=== PATIENT | female | born 1950 | race Caucasian/White ===

== ENCOUNTER → 2024-09-09 17:24 | Outpatient (BNV) | payer MEDICARE, SELFPAY | PROVIDERS: Emergency Provider Emergency Medicine; PCP Family Medicine; Visit Provider Radiology Diagnostic Radiology | DX: R06.02 Shortness of breath (principal) | CPT/HCPCS: 71045 ==

== ENCOUNTER 2024-11-16 12:37 | Outpatient (AMB) | payer MEDICARE, SELFPAY ==
[2024-11-16 13:03] VITALS: BP 92/56; PULSE 81; O2SAT 97; BMI 15.2
--- NOTE | 2024-11-16 13:03 | A.OFFVIS_ITS ---
Vital Signs 11/16/24 13:03 Height 5 ft 6 in Weight 94 lb BMI 15.2 BP 92/56 L Blood Pressure Location Lt brachial Position Sitting Pulse 81 Pulse Source Doppler Pulse Oximetry (%) 97 Oxygen Delivery Method Room Air Intake Visit Reasons: shortness of breath, cough Allergies banana Allergy (Verified 11/03/24 10:51) headaches chocolate Allergy (Verified 11/03/24 10:51) hives codeine Allergy (Verified 11/03/24 10:51) runny nose Influenza Virus Vaccines Allergy (Verified 11/03/24 10:51) guillain-barre latex Allergy (Verified 11/03/24 10:51) itching, rash sertraline [From Zoloft] Allergy (Verified 11/03/24 10:51) Dizziness soy Allergy (Verified 11/03/24 10:51) swelling/edema beef Allergy (Uncoded 11/03/24 10:51) headaches cucumber Allergy (Uncoded 11/03/24 10:51) rhinitis demerol Allergy (Uncoded 11/03/24 10:51) unknown pork Allergy (Uncoded 11/03/24 10:51) intolerant HPI HPI shortness of breath, cough: Details: 74-year-old lady with underlying COPD and BAL cultures growing MAC, symptomatic with worsening cough. Continues on baseline COPD regimen of Trelegy, duo nebs, and albuterol MDI. Patient has been taken TIW azithromycin, rifampin, and ethambutol and is able to tolerate this regimen without side effects. She did have a recent acute exacerbation requiring systemic glucocorticoids. She did complete her immunologic workup that shows significant allergic component to her symptoms. She has been approved for Dupixent, however she was not able to start it yet. 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 Osteoporosis Multinodular thyroid History of cervical cancer Nicotine dependence, cigarettes, uncomplicated History of right breast cancer COPD (chronic obstructive pulmonary disease) Surgical History (Updated 11/03/24 @ 10:51 by Rashmi Sommer) History of partial mastectomy of right breast History of bronchoscopy History of hysterectomy History of breast augmentation History of appendectomy Family History (System 11/03/24 @ 10:51 by Rashmi Sommer) Father Prostate CA Social History (System 11/03/24 @ 10:51 by Rashmi Sommer) Household Members: None Housing: House Patient Tobacco Use Status: Current everyday Tobacco user Cigarette Packs Per Day: 0.5 Cigarettes Per Day: 5 Years Smoked: 35 e-Cigarette/Vaping Use: Never Used service: No Current occupational status: employed Cognitive needs: No Hearing needs: No Vision needs: Yes Review of Systems Const Denies daytime sleepiness, Denies excessive sweating, Denies fatigue, Denies fever(s), Denies lethargy, Denies malaise, Denies night sweats, Denies snoring and Denies weight loss Eyes Denies blurry vision and Denies itchy eyes ENT Denies nasal congestion, Denies post nasal drip, Denies sinus pain, Denies sinus pressure and Denies other ( Thrush) Card Denies chest pain, Denies pedal edema, Denies dyspnea, Denies orthopnea and Denies paroxysmal nocturnal dyspnea Resp Reports cough, Denies hemoptysis, Reports excessive phlegm production, Denies dyspnea, Denies snoring and Denies wheezing GI Denies abdominal pain and Denies heartburn Musc Denies myalgias, Denies arthralgias and Denies joint swelling Skin/Breast Denies rash Neuro Denies memory loss and Denies seizure-like activity Psych Denies abnormal sleep pattern, Denies anxiety and Denies memory loss Endo Denies excessive sweating, Denies fatigue and Denies heat intolerance Estuardo/Lymph Denies easy bruising Aller/Immun Denies itchy eyes, Denies seasonal rhinorrhea and Denies wheezing Physical Exam Vital Signs: Last Vital Signs Pulse 81 11/16/24 13:03 BP 92/56 L 11/16/24 13:03 Pulse Ox 97 11/16/24 13:03 Oxygen Delivery Method Room Air 11/16/24 13:03 BMI result Body Mass Index 15.2 Const General: no acute distress and alert Nutritional Appearance: not obese Orientation/consciousness: Other orientation findings ( oriented) HEENT Head: Yes atraumatic Eyes General: appearance normal, both eyes and all related structures Sclerae: sclerae normal EOM: EOMs intact bilaterally Neck Neck: Yes supple Lymphatic: no lymphadenopathy noted Resp Effort & Inspection: normal respiratory effort and no use of accessory muscles Auscultation: clear to auscultation bilaterally Cardio Rate: regular rate Rhythm: regular rhythm Heart sounds: no gallops, no murmurs and no rubs Skin General skin exam: other ( warm) Extrem General: No clubbing, No cyanosis and No edema Assessment & Plan Assessment & Plan (1) Asthma-COPD overlap syndrome: Code(s): J44.89 - Other specified chronic obstructive pulmonary disease Category: Medical Plan: Suboptimal control on trilogy and albuterol MDI/duo nebs. Approved, however not started on Dupixent yet. (2) Mycobacterium avium complex: Code(s): A31.0 - Pulmonary mycobacterial infection Category: Medical Plan: Tolerating 3 drug regimen. Continue ethambutol/azithromycin/rifampin TIW. (3) Nicotine dependence, cigarettes, uncomplicated: Code(s): F17.210 - Nicotine dependence, cigarettes, uncomplicated Category: Medical Plan: Will obtain lung cancer screening CT chest. Orders: Orders CT lung screening 01/16/25 F17.210 - Nicotine dependence, cigarettes, uncomplicated Medications: Refilled dupilumab (Dupixent) Initial dose 600 mg, then 300 mg every 2 weeks subcutaneously 300 mg (2 mL) subcut Q2W 4 mL 12RF Coding Level of Care Code Est Pt Level 4 (31732) Complex EM visit Add On G2211 Diagnoses Asthma-COPD overlap syndrome J44.89 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 Nicotine dependence, cigarettes, uncomplicated F17.210
--- OUTSIDE RECORDS SUMMARY | 2024-11-16 15:11 | XMS_ITS | Clinical Summary ---
Author Organization [facility] ity Address [address] [place] [address] Care Team Providers Care Materials Scheduler Name Role Phone Elyssa García DO Primary Care Provider [phone] Surgical History Surgery Date Site/Laterality Comments APPENDECTOMY PROCEDURE: HISTORICAL APPENDECTOMY HYSTERECTOMY PROCEDURE: HISTORICAL TOTAL HYSTERECTOMY WITH BSO BREAST LUMPECTOMY 2008 Right PROCEDURE: HISTORICAL BREAST LUMPECTOMY; COMMENT: DCIS, + XRT OTHER SURGICAL HISTORY 2010 Bilateral PROCEDURE: HISTORY OTHER; COMMENT: Bilateral breast augmentation w/ silicone implants Medical History Medical History Date Comments Allergic rhinitis 04/14/2018 DX:Allergic rh initis Anxiety DX:Anxiety BMI less than 19,adult 04/14/2018 DX:BMI le ss than 19,adult; COMMENT: BMI 14.13 on 04/08/2018, BMI 15.17 07/23/16 DJD (degenerative joint dise ase) of knee 04/14/2018 DX:DJD (degenerative joint d isease) of knee Heart palpitations 04/14/2018 DX:Heart palp itations Herpes, genital 04/14/2018 DX:Herpes, genit al History of breast cancer DX:Hist ory of breast cancer; COMMENT: DCIS 2008, R mastectomy and XRT 2009 Multiple food allergies 04/14/2018 DX:Multi ple food allergies; COMMENT: Has epipen Multiple thyroid nodules 04/14/2018 DX:Mult iple thyroid nodules Tobacco use 04/14/2018 DX:Tobacco use Vitamin D deficiency 04/14/2018 DX:Vitamin D deficiency Dyslipidemia 07/10/2018 DX:Dyslipidemia Brain aneurysm 07/28/2018 DX:Brain aneurys m History of Guillain-Rochester sy ndrome due to influenza immunization 11/13/2018 DX:History of Guillain-B arre syndrome due to influenza immunization; COMMENT: 2016 Covid-19 12/21/2020 DX:COVID-19; COM MENT: 10/30 Gallstones DX:Gallstones COPD (chronic obstructive pu lmonary disease) (CMS/HCC) DX:COPD (chronic obstructive pulmonary disease) (HCC) Family History Medical History Relation Name Comments Prostate cancer Father mets to the bone Dementia Mother Other: cyst of brain Son Lung cancer Neg Hx Relation Name Status Comments Brother Father Mother Son Alive Social History Tobacco Use Types Packs/Day Years Used Date Smoking Tobacco: Every Day Cigarettes 0.5 52.2 Started: 09/08/1972 Smokeless Tobacco: Never Alcohol Use Standard Drinks/Week Comments Not Currently 0 (1 standard drink = 0.6 oz pur e alcohol) Comments Unknown Sex and Gender Information Value Date Recorded Sex Assigned at Not on file Legal Sex Female 5:34 AM EST Gender Identity Not on file Sexual Orientation Not on file Obstetrics History Last Filed Vital Signs Vital Sign Reading Time Taken Comments Blood Pressure 113/70 12/11/2023 1:54 PM EDT Sitting R Arm Pulse 76 12/11/2023 1:54 PM EDT Temperature - - Respiratory Rate - - Oxygen Saturation - - Inhaled Oxygen Concentration - - Weight 41.4 kg (91 lb 3.2 oz) 1:54 PM EDT Height 167.6 cm (5' 6 ) 12/11/2023 1:54 PM EDT Body Mass Index 14.72 12/11/2023 1:54 PM EDT Plan of Treatment Health Maintenance Due Date Last Done Comments DTaP,Tdap,and Td Vaccines (1 - Tdap) 1971 Pneumococcal Vaccine: 50+ Years (1 of 2 - PCV) 1971 Zoster Vaccines (1 of 2) 2002 RSV Immunization Patients 60+ Years Old (1 - Risk 60-74 years 1-dose series) 2012 Cholesterol Screening (Lipid Panel) 08/17/2022 Colorectal Cancer Screening: Colonoscopy 08/17/2022 Depression Screening 08/17/2022 Falls Risk Assessment 08/17/2022 Hepatitis C Screening 08/17/2022 Social Influencers of Health Screening 08/17/2022 COVID-19 Vaccine ( season) 2024 01/29/2022, 06/28/2021, 06/09/2021, Additional history exists Influenza Vaccine (#1) 2024 Lung Cancer Screening (Low Dose CT) 06/27/2024 06/27/2023, 05/20/2022 Breast Cancer Screening 08/20/2025 08/20/2023 Osteoporosis Screening (Bone Density Screening) 08/20/2033 08/20/2023 HIB Vaccines Aged Out No longer eligi ble based on patient's age to complete this topic HPV Vaccines Aged Out No longer eligi ble based on patient's age to complete this topic Hepatitis A Vaccines Aged Out No long er eligible based on patient's age to complete this topic Hepatitis B Vaccines Aged Out No long er eligible based on patient's age to complete this topic IPV Vaccines Aged Out No longer eligi ble based on patient's age to complete this topic MMR Vaccines Aged Out No longer eligi ble based on patient's age to complete this topic Meningococcal ACWY Vaccine Aged Out N o longer eligible based on patient's age to complete this topic Meningococcal B Vacine Aged Out No lo nger eligible based on patient's age to complete this topic RSV Immunization Patients Under 20 months Aged Out No longer eligible based on patient's age to complete this topic Varicella Vaccines Aged Out No longer eligible based on patient's age to complete this topic Procedures Procedure Name Priority Date/Time Associated Diagnosis Comments SCREENING MAMMOGRAPHY BI 2-VIEW BREAST INC CAD Routine 08/20/2023 3:59 PM EST Encounter for screening mammogram for malignant neoplasm of breast DXA BONE DENSITY STUDY 1+ SITS AXIAL SKEL Routine 08/20/2023 3:47 PM EST Encounter for screening for osteoporosis CT LUNG SCREENING LOW DOSE Routine 06/27/2023 6:12 AM EDT Personal history of nicotine dependence from Last 3 Months or Most Recently Relevant to Health Maintenance Results * SCREENING MAMMOGRAPHY BI 2-VIEW BREAST INC CAD (08/20/2023 3:59 PM EST) Anatomical Region Laterality Modality Radiographic Melani ging 05/21/2023 3:13 PM EDT Narrative 08/21/2023 10:15 AM EST This is a summary report. The complete report is available in the patient's medical record. If you cannot access the medical record, please contact the sending organization for a detailed fax or copy. Full field digital screening tomosynthesis mammography, reviewed with CAD and compared to previous. ??Both standard and implant displaced views were obtained bilaterally. ??Bilateral subpectoral silicone implants remain appropriately positioned and configured. ??The breasts are composed of fatty and fibroglandular tissue. ??No suspicious mass, architectural distortion or suspicious calcifications are identified. IMPRESSION: : No mammographic evidence of malignancy. BIRADS 1-Negative; N. Procedure Note Abhinav Tran MD - 10/14/2023 This is a summary report. The complete report is available in thepatient's medical record. If you cannot access the medical record, pleasecontact the sending organization for a detailed fax or copy. Full field digital screening tomosynthesis mammography, reviewed with CADand compared to previous. Both standard and implant displaced views wereobtained bilaterally. Bilateral subpectoral silicone implants remainappropriately positioned and configured. The breasts are composed offatty and fibroglandular tissue. No suspicious mass, architecturaldistortion or suspicious calcifications are identified. IMPRESSION: : No mammographic evidence of malignancy. BIRADS 1-Negative; N. Elyssa García DO IMG XR PROCEDURES Final Result * DXA BONE DENSITY STUDY 1+ SITS AXIAL SKEL (08/20/2023 3:47 PM EST) Anatomical Region Laterality Modality Bone Densitometr y 05/21/2023 3:13 PM EDT Narrative 08/20/2023 3:52 PM EST BONE DENSITY ? Lumbar Spine T-score is -3.0 ?? (SD relative to 20-29 y/o adult) Z-score is -0.8 ??(SD relative to age matched peers) This is consistent with osteoporosis by criteria defined by the WHO. Left Hip T-score is -3.5 Z-score is -1.7 This is consistent with osteoporosis by criteria defined by the WHO. Impression: Based on the World Health Organization criteria, Carole Sandoval should be classified as having osteoporosis. The [facility] Department of Internal Medicine recommends using National Osteoporosis Foundation (NOF) guidelines in treatment decisions related to osteoporosis. NOF guidelines suggest considering treatment for postmenopausal women and men aged 50 or older presenting with the following: History of hip or vertebral fracture. T-score less than or equal to -2.5 (DXA) at the femoral neck, total hip, or spine, after appropriate evaluation to exclude secondary causes. Low bone mass (T-score between -1.0 and -2.5 at the femoral neck or spine) AND a 10-year probability of a hip fracture greater than or equal to 3% OR a 10-year probability of a major osteoporosis-related fracture greater than or equal to 20% based on the [place]-adapted WHO algorithm Please note that all treatment decisions require clinical judgment and consideration of individual patient factors, including patient preferences, co-morbidities, previous drug use, risk factors not captured in the FRAX model (e.g., frailty, falls, vitamin D deficiency, increased bone turnover, interval significant decline in bone density) and possible under- or over-estimation of fracture risk by FRAX. Procedure Note Abhinav Tran MD - 10/14/2023 BONE DENSITY Lumbar Spine T-score is -3.0 (SD relative to 20-29 y/o adult) Z-score is -0.8 (SD relative to age matched peers) This is consistent with osteoporosis by criteria defined by the WHO. Left Hip T-score is -3.5 Z-score is -1.7 This is consistent with osteoporosis by criteria defined by the WHO. Impression: Based on the World Health Organization criteria, Carole Sandoval should beclassified as having osteoporosis. The [facility] Department of Internal Medicine recommendsusing National Osteoporosis Foundation (NOF) guidelines in treatmentdecisions related to osteoporosis. NOF guidelines suggest consideringtreatment for postmenopausal women and men aged 50 or older presentingwith the following: History of hip or vertebral fracture. T-score less than or equal to -2.5 (DXA) at the femoral neck, total hip,or spine, after appropriate evaluation to exclude secondary causes. Low bone mass (T-score between -1.0 and -2.5 at the femoral neck or spine)AND a 10-year probability of a hip fracture greater than or equal to 3% ORa 10-year probability of a major osteoporosis-related fracture greaterthan or equal to 20% based on the [place]-adapted WHO algorithm Please note that all treatment decisions require clinical judgment andconsideration of individual patient factors, including patientpreferences, co-morbidities, previous drug use, risk factors not capturedin the FRAX model (e.g., frailty, falls, vitamin D deficiency, increasedbone turnover, interval significant decline in bone density) and possibleunder- or over-estimation of fracture risk by FRAX. Elyssa García DO IMG DXA PROCEDURES Final Result * CT LUNG SCREENING LOW DOSE (06/27/2023 6:12 AM EDT) Anatomical Region Laterality Modality Computed Tomogra phy 06/25/2023 11:1 0 AM EDT Narrative 06/27/2023 6:12 AM EDT [facility] Diagnostic Imaging Department [address] [place] [address] Patient: ??CAROLE SANDOVAL ?/Age/Sex: 1950 - 72 - F Unit#: ??[id number] ? Location/Status: ??SPDICATLS/REG CLI ? Mnemonic/Ordering Site: ??[facility] Ordering Physician: ??JAREK PERKINS MD CT Lung Screening Low Dose - 06/25/23 - 1125 Report Status:Signed Indication: Greater than 20 total pack-year smoking history, asymptomatic current smoker Technique: Low-dose CT scan of the chest obtained as a lung cancer screening study. Multiplanar reformatted images were obtained. ??Dose reduction technique: ASIR (Adaptive statistical iterative reconstruction) and/or AEC (automated exposure control) COMPARISON: 2021. FINDINGS: Lack of intravenous contrast limits evaluation of the antonio, vascular structures and visualized abdominal viscera. Lungs/airways: Secretions are seen in the trachea and right mainstem bronchus with bronchial wall thickening. ??Emphysematous changes. ??Calcified granuloma New spiculated 3.4 x 1.2 x 2.7 cm mass left upper lobe (series 3, image 70; series 601, image 67) Other scattered sub-5 mm pulmonary nodules are similar to prior. Base of the neck, mediastinum, heart, chest wall, vessels: No enlarged mediastinal lymphadenopathy. ??Hilar lymphadenopathy cannot be assessed due to lack of IV contrast. ??Thoracic aortic and coronary artery calcifications. ??Trace pericardial effusion/thickening. ??Bilateral breast implants. Upper abdomen: ??This study was performed without contrast and with lower than standard dose. These factors reduce the sensitivity for detection of small lesions in the upper abdomen. ??11 mm low-attenuation lesion in the left kidney, similar to prior. Bones/soft tissues: Degenerative changes Impression: New spiculated 3.4 x 1.2 x 2.7 cm suspicious mass in the left upper lobe Lung RADS 4B: Suspicious - PET/CT and/or tissue sampling depending on the probability of malignancy and comorbidities. PET/CT be used when there is a > or = 8 mm solid component. Dictating Physician: ??ELI DOWLING MD Electronically Signed by: ??ELI DOWLING MD Dic Date/Time: ??06/27/23600 Sign date/Time: ??06/27/23611 Procedure Note Eli Dowling MD - 10/14/2023 [facility] Diagnostic Imaging Department [address] [place] [address] Patient: CAROLE SANDOVAL /Age/Sex: 1950 - 72 - F Unit#: [id number] Location/Status: SPDICATLS/REG CLI Mnemonic[facility]ing [facility] [place] Ordering Physician: JAREK PERKINS MD CT Lung Screening Low Dose - 06/25/23 - 1125 Report Status:Signed Indication: Greater than 20 total pack-year smoking history,asymptomatic current smoker Technique: Low-dose CT scan of the chest obtained as a lung cancerscreening study. Multiplanar reformatted images were obtained. Dose reductiontechnique: ASIR (Adaptive statistical iterative reconstruction) and/or AEC(automated exposure control) COMPARISON: 2021. FINDINGS: Lack of intravenous contrast limits evaluation of the antonio,vascular structures and visualized abdominal viscera. Lungs/airways: Secretions are seen in the trachea and right mainstembronchus with bronchial wall thickening. Emphysematous changes. Calcifiedgranuloma New spiculated 3.4 x 1.2 x 2.7 cm mass left upper lobe (series 3, image70; series 601, image 67) Other scattered sub-5 mm pulmonary nodules are similar to prior. Base of the neck, mediastinum, heart, chest wall, vessels: No enlarged mediastinal lymphadenopathy. Hilar lymphadenopathy cannot be assessed dueto lack of IV contrast. Thoracic aortic and coronary artery calcifications.Trace pericardial effusion/thickening. Bilateral breast implants. Upper abdomen: This study was performed without contrast and with lowerthan standard dose. These factors reduce the sensitivity for detection ofsmall lesions in the upper abdomen. 11 mm low-attenuation lesion in the leftkidney, similar to prior. Bones/soft tissues: Degenerative changes Impression: New spiculated 3.4 x 1.2 x 2.7 cm suspicious mass in the left upper lobe Lung RADS 4B: Suspicious - PET/CT and/or tissue sampling depending onthe probability of malignancy and comorbidities. PET/CT be used when there gianluca > or = 8 mm solid component. Dictating Physician: ELI DOWLING MD Electronically Signed by: ELI DOWLING MD Dic Date/Time: 06/27/23600 Sign date/Time: 06/27/23611 us Jarek Perkins MD IMG CT PROCEDURES Final Result from Last 3 Months or Most Recently Relevant to Health Maintenance Advance Directives Documents on File Type Date Recorded Patient Staffing Associate Expl anation Health Care Decision (hx) 07/15/2023 AD SANTAMARIA DIRECTIVE Health Care Decision (hx) 07/15/2023 AD SANTAMARIA DIRECTIVE Health Care Decision (hx) 07/15/2023 AD SANTAMARIA DIRECTIVE Health Care Decision (hx) 07/15/2023 AD SANTAMARIA DIRECTIVE Health Care Decision (hx) 07/15/2023 AD SANTAMARIA DIRECTIVE Care Teams Materials Scheduler Relationship Specialty Start Date End Date Elyssa García DO PCP - General Internal Medicine 09/06/21
== END 2024-11-16 13:30 | disposition home or self-care (01) ==
LOC: HO.HPS 12:38
PROVIDERS: PCP Family Medicine; Visit Provider Internal Medicine Pulmonary Disease
DX: J44.89 Other specified chronic obstructive pulmonary disease (principal); A31.0 Pulmonary mycobacterial infection; F17.210 Nicotine dependence, cigarettes, uncomplicated
CPT/HCPCS: 99214; G2211

== ENCOUNTER → 2024-11-16 12:37 | Outpatient (BNVA) | payer MEDICARE, SELFPAY | PROVIDERS: PCP Family Medicine; Visit Provider Internal Medicine Pulmonary Disease | DX: J44.89 Other specified chronic obstructive pulmonary disease (principal); A31.0 Pulmonary mycobacterial infection; F17.210 Nicotine dependence, cigarettes, uncomplicated | CPT/HCPCS: 99212 ==

== ENCOUNTER → 2024-12-08 10:11 | Outpatient (BNVA) | payer MEDICARE, SELFPAY | PROVIDERS: PCP Family Medicine; Visit Provider Internal Medicine Pulmonary Disease ==

== ENCOUNTER 2024-12-10 09:38 | Outpatient (AMB) | payer MEDICARE, SELFPAY ==
[2024-12-10 09:54] VITALS: BP 106/68; PULSE 99; O2SAT 96
--- NOTE | 2024-12-10 09:54 | A.OFFVIS_ITS ---
Vital Signs 12/10/24 09:54 Height 5 ft 6 in BP 106/68 Blood Pressure Location Lt brachial Position Sitting Pulse 99 Pulse Source Pulse Oximeter Pulse Oximetry (%) 96 Oxygen Delivery Method Room Air Intake Visit Reasons: dupixent teaching Allergies banana Allergy (Verified 12/10/24 09:56) headaches chocolate Allergy (Verified 12/10/24 09:56) hives codeine Allergy (Verified 12/10/24 09:56) runny nose Influenza Virus Vaccines Allergy (Verified 12/10/24 09:56) guillain-barre latex Allergy (Verified 12/10/24 09:56) itching, rash sertraline [From Zoloft] Allergy (Verified 12/10/24 09:56) Dizziness soy Allergy (Verified 12/10/24 09:56) swelling/edema beef Allergy (Uncoded 12/10/24 09:56) headaches cucumber Allergy (Uncoded 12/10/24 09:56) rhinitis demerol Allergy (Uncoded 12/10/24 09:56) unknown pork Allergy (Uncoded 12/10/24 09:56) intolerant Medication List - Last Reconciled 12/10/24 by Mela Adamson, WELFARE SUPERVISOR albuterol sulfate 2.5 mg inhalation Q4-6H PRN albuterol sulfate 90 mcg/actuation 2 puffs inhalation QID 30 days azelastine 1 spray intranasal .daily x1 azithromycin 500 mg PO .Friday 30 days buspirone 15 mg (1.5 x 10 mg) PO BID 30 days cetirizine 10 mg PO DAILY PRN dupilumab (Dupixent) 300 mg (2 mL) subcut Q2W escitalopram oxalate 20 mg PO DAILY ethambutol 1 g (2.5 x 400 mg) PO 3XW atptllsqwjn-wofzvvvxo-boveoknf 200-62.5-25 mcg (Trelegy Ellipta) 1 inh inhalation DAILY ipratropium-albuterol 0.5 mg-3 mg(2.5 mg base)/3 mL 3 mL inhalation BID PRN lorazepam 0.5 mg PO DAILY PRN 30 days metoprolol tartrate 25 mg PO DAILY montelukast (Singulair) 10 mg PO DAILY prednisone 10 mg PO DIRECTED quetiapine (Seroquel) 25 mg PO BEDTIME rifampin 600 mg (2 x 300 mg) PO .Friday 30 days valacyclovir 500 mg PO DAILY HPI Comments Details: Carole is here for a Dupixent teach _ was educated on hand washing, injection preparation, administration, and disposal.? Carole was able to return demonstrate proper technique for hand washing, injection preparation, administration and disposal of needle and states she has no questions at this time. Medication Dupixent 300mg/2mL pre-filled pen (patient?s own meds) Loading dose of 600mg given by the patient in 2 SQ injections; injection #1 R thigh;? injection #2 L thigh? Lot# [id number] expires 05/08/2026. Patient aware her next injection is in 15 days. Nurse visit only.? 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 Osteoporosis Multinodular thyroid History of cervical cancer Nicotine dependence, cigarettes, uncomplicated History of right breast cancer COPD (chronic obstructive pulmonary disease) Surgical History (Updated 11/03/24 @ 10:51 by Rashmi Sommer) History of partial mastectomy of right breast History of bronchoscopy History of hysterectomy History of breast augmentation History of appendectomy Family History (System 11/03/24 @ 10:51 by Rashmi Sommer) Father Prostate CA Social History (System 11/03/24 @ 10:51 by Rashmi Sommer) Household Members: None Housing: House Patient Tobacco Use Status: Current everyday Tobacco user Cigarette Packs Per Day: 0.5 Cigarettes Per Day: 5 Years Smoked: 35 e-Cigarette/Vaping Use: Never Used service: No Current occupational status: employed Cognitive needs: No Hearing needs: No Vision needs: Yes Physical Exam Vital Signs: Last Vital Signs Pulse 99 12/10/24 09:54 BP 106/68 12/10/24 09:54 Pulse Ox 96 12/10/24 09:54 Oxygen Delivery Method Room Air 12/10/24 09:54 Assessment & Plan Assessment & Plan (1) Asthma-COPD overlap syndrome: Code(s): J44.89 - Other specified chronic obstructive pulmonary disease Category: Medical Plan Dupixent teaching Coding Level of Care Code Established Pt Est Pt Level 1 (93174) Patient Type Established Diagnoses Asthma-COPD overlap syndrome J44.89 Comment NURSE VISIT ONLY
--- OUTSIDE RECORDS SUMMARY | 2024-12-10 10:39 | XMS_ITS | Clinical Summary ---
Author Organization [facility] ity Address [address] [place] [address] Care Team Providers Care Lead Ios Developer Name Role Phone Elyssa García DO Primary Care Provider [phone] Surgical History Surgery Date Site/Laterality Comments APPENDECTOMY [...] aneurysm 07/28/2018 DX:Brain aneurys m History of Guillain-[place] sy ndrome due to influenza immunization 11/13/2018 [...] Date Smoking Tobacco: Every Day Cigarettes 0.5 52.3 Started: 09/08/1972 Smokeless Tobacco: Never Alcohol Use [...] Vaccines (1 of 2) 2002 RSV Immunization Adult Patients (1 - Risk 60-74 years 1-dose series) 2012 Cholesterol Screening (Lipid Panel) 08/17/2022 Colorectal Cancer Screening: Colonoscopy 08/17/2022 Depression Screening 08/17/2022 Falls Risk Assessment 08/17/2022 Hepatitis C Screening 08/17/2022 Social Influencers of Health Screening 08/17/2022 COVID-19 Vaccine ( season) 2024 01/29/2022, 06/28/2021, 06/09/2021, Additional history exists Lung Cancer Screening (Low Dose CT) 06/27/2024 06/27/2023, 05/20/2022 Influenza Vaccine (Season Ended) 2025 Breast Cancer Screening 08/20/2025 08/20/2023 Osteoporosis Screening [...] should be classified as having osteoporosis. The [facility] Department of Internal Medicine recommends using [...] Sandoval should beclassified as having osteoporosis. The [facility] Department of Internal Medicine recommendsusing National [...] fracture risk by FRAX. Elyssa García DO [facility] DXA PROCEDURES Final Result * CT LUNG SCREENING LOW DOSE (06/27/2023 6:12 AM EDT) Anatomical Region Laterality Modality Computed Tomogra phy 06/25/2023 11:1 0 AM EDT Narrative 06/27/2023 6:12 AM EDT [facility] Diagnostic Imaging Department [address] [place] [address] Patient: ??CAROLE SANDOVAL ?/Age/Sex: 1950 - Unit#: ??[id number] ? Location/Status: ??SPDICATLS/REG CLI ? Mnemonic/Ordering Site: [...] Procedure Note Eli Dowling MD - 10/14/2023 [facility] Diagnostic Imaging Department [address] [place] [address] Patient: CAROLE SANDOVAL /Age/Sex: 1950 - 72 - F Unit#: [id number] Location/Status: SPDICATLS/REG CLI Mnemonic/Ordering Site: 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
== END 2024-12-10 09:51 | disposition home or self-care (01) ==
LOC: HO.HPS 09:38
PROVIDERS: PCP Family Medicine; Visit Provider Internal Medicine Pulmonary Disease
DX: J44.89 Other specified chronic obstructive pulmonary disease (principal)

== ENCOUNTER → 2024-12-10 09:38 | Outpatient (BNVA) | payer MEDICARE, SELFPAY | PROVIDERS: PCP Family Medicine; Visit Provider Internal Medicine Pulmonary Disease | DX: J44.89 Other specified chronic obstructive pulmonary disease (principal); Z71.89 Other specified counseling; Z79.899 Other long term (current) drug therapy | CPT/HCPCS: 99211 ==

== ENCOUNTER 2024-12-15 10:30 | Outpatient (AMB) | payer MEDICARE, SELFPAY ==
[2024-12-15 10:41] VITALS: BP 108/62; PULSE 82; O2SAT 95; BMI 33.8
--- NOTE | 2024-12-15 10:41 | MHC.OFFVIS ---
Vital Signs 12/15/24 10:41 Height 5 ft 6 in Weight 209 lb 7.026 oz BMI 33.8 BP 108/62 Blood Pressure Location Lt brachial Position Sitting Pulse 82 Pulse Source Doppler Pulse Oximetry (%) 95 Oxygen Delivery Method Room Air Intake Visit Reasons: Shortness of breath Allergies banana Allergy (Verified 12/15/24 10:46) headaches chocolate Allergy (Verified 12/15/24 10:46) hives codeine Allergy (Verified 12/15/24 10:46) runny nose Influenza Virus Vaccines Allergy (Verified 12/15/24 10:46) guillain-barre latex Allergy (Verified 12/15/24 10:46) itching, rash sertraline [From Zoloft] Allergy (Verified 12/15/24 10:46) Dizziness soy Allergy (Verified 12/15/24 10:46) swelling/edema beef Allergy (Uncoded 12/10/24 09:56) headaches cucumber Allergy (Uncoded 12/10/24 09:56) rhinitis demerol Allergy (Uncoded 12/10/24 09:56) unknown pork Allergy (Uncoded 12/10/24 09:56) intolerant HPI HPI Shortness of breath: Details: 74-year-old lady with underlying COPD and BAL cultures growing MAC, symptomatic with worsening cough. Continues on baseline COPD regimen of Trelegy, duo nebs, and albuterol MDI. Patient has been taken TIW azithromycin, rifampin, and ethambutol and is able to tolerate this regimen without side effects. She did have a recent acute exacerbation requiring systemic glucocorticoids. She did complete her immunologic workup that shows significant allergic component to her symptoms. She has been approved for [employer] and had her 1st injection approximately 1 week prior. Patient's symptoms been controlled on a prednisone taper, however her dyspnea and nonproductive cough recurred several days after finishing prednisone taper. 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 Osteoporosis Multinodular thyroid History of cervical cancer Nicotine dependence, cigarettes, uncomplicated History of right breast cancer COPD (chronic obstructive pulmonary disease) Surgical History (Updated 11/03/24 @ 10:51 by Rashmi Sommer) History of partial mastectomy of right breast History of bronchoscopy History of hysterectomy History of breast augmentation History of appendectomy Family History (System 11/03/24 @ 10:51 by Rashmi Sommer) Father Prostate CA Social History (System 11/03/24 @ 10:51 by Rashmi Sommer) Household Members: None Housing: House Patient Tobacco Use Status: Current everyday Tobacco user Cigarette Packs Per Day: 0.5 Cigarettes Per Day: 5 Years Smoked: 35 e-Cigarette/Vaping Use: Never Used service: No Current occupational status: employed Cognitive needs: No Hearing needs: No Vision needs: Yes Review of Systems Const Denies daytime sleepiness, Denies excessive sweating, Denies fatigue, Denies fever(s), Denies lethargy, Denies malaise, Denies night sweats, Denies snoring and Denies weight loss Eyes Denies blurry vision and Denies itchy eyes ENT Denies nasal congestion, Denies post nasal drip, Denies sinus pain, Denies sinus pressure and Denies other ( Thrush) Card Denies chest pain, Denies pedal edema, Denies dyspnea, Reports dyspnea on exertion, Denies orthopnea and Denies paroxysmal nocturnal dyspnea Resp Reports cough, Denies hemoptysis, Denies excessive phlegm production, Denies dyspnea, Reports dyspnea on exertion, Denies snoring and Denies wheezing GI Denies abdominal pain and Denies heartburn Musc Denies myalgias, Denies arthralgias and Denies joint swelling Skin/Breast Denies rash Neuro Denies memory loss and Denies seizure-like activity Psych Denies abnormal sleep pattern, Denies anxiety and Denies memory loss Endo Denies excessive sweating, Denies fatigue and Denies heat intolerance Estuardo/Lymph Denies easy bruising Aller/Immun Denies itchy eyes, Denies seasonal rhinorrhea and Denies wheezing Physical Exam Vital Signs: Last Vital Signs Pulse 82 12/15/24 10:41 BP 108/62 12/15/24 10:41 Pulse Ox 95 12/15/24 10:41 Oxygen Delivery Method Room Air 12/15/24 10:41 BMI result Body Mass Index 33.8 Const General: no acute distress and alert Nutritional Appearance: thin Orientation/consciousness: Other orientation findings ( oriented) HEENT Head: Yes atraumatic Eyes General: appearance normal, both eyes and all related structures Sclerae: sclerae normal EOM: EOMs intact bilaterally Neck Neck: Yes supple Lymphatic: no lymphadenopathy noted Resp Effort & Inspection: normal respiratory effort and no use of accessory muscles Auscultation: clear to auscultation bilaterally Cardio Rate: regular rate Rhythm: regular rhythm Heart sounds: no gallops, no murmurs and no rubs Skin General skin exam: other ( warm) Extrem General: No clubbing, No cyanosis and No edema Assessment & Plan Assessment & Plan (1) Asthma-COPD overlap syndrome: Code(s): J44.89 - Other specified chronic obstructive pulmonary disease Category: Medical Plan: Expect to improve after starting Dupixent. Continue baseline regimen of Trelegy and albuterol MDI/duo nebs. Will bridge with low-dose prednisone. (2) Mycobacterium avium complex: Code(s): A31.0 - Pulmonary mycobacterial infection Category: Medical Plan: Tolerating triple therapy with ethambutol/rifampin/azithromycin. (3) Environmental allergies: Code(s): Z91.09 - Other allergy status, other than to drugs and biological substances Category: Medical Plan: Expect to improve on Dupixent. Medications: New prednisone Take 2 tabs daily for 3 weeks, then take 1 tab daily for 1 week 5 mg PO DIRECTED 50 tabs 0RF Coding Level of Care Code Est Pt Level 4 (37718) Complex EM visit Add On G2211 Diagnoses Asthma-COPD overlap syndrome J44.89 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 Environmental allergies Z91.09
--- OUTSIDE RECORDS SUMMARY | 2024-12-15 12:00 | XMS_ITS | Clinical Summary ---
Author Organization [facility] ity Address [address] [place] [address] Care Team Providers Care Time Clock Mechanic Name Role Phone Elyssa García DO Primary Care Provider [phone] Surgical History Surgery Date Site/Laterality Comments APPENDECTOMY [...] aneurysm 07/28/2018 DX:Brain aneurys m History of Guillain-[place] sy ndrome due to influenza immunization 11/13/2018 [...] age to complete this topic Meningococcal B Vaccine Aged Out No l onger eligible based on patient's age to complete [...] should be classified as having osteoporosis. The [facility] Department of Internal Medicine recommends using [...] [place] should beclassified as having osteoporosis. The [facility] Department of Internal Medicine recommendsusing National [...] fracture risk by FRAX. Elyssa García DO [facility] DXA PROCEDURES Final Result * CT LUNG SCREENING LOW DOSE (06/27/2023 6:12 AM EDT) Anatomical Region Laterality Modality Computed Tomogra phy 06/25/2023 11:1 0 AM EDT Narrative 06/27/2023 6:12 AM EDT [facility] Diagnostic Imaging Department [address] [place] [address] Patient: ??CAROLE SANDOVAL ?/Age/Sex: 1950 - - Unit#: ??[id number] ? Location/Status: ??SPDICATLS/REG CLI ? 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
== END 2024-12-15 10:58 | disposition home or self-care (01) ==
LOC: HO.HPS 10:31
PROVIDERS: PCP Family Medicine; Visit Provider Internal Medicine Pulmonary Disease
DX: J44.89 Other specified chronic obstructive pulmonary disease (principal); A31.0 Pulmonary mycobacterial infection; Z91.09 Other allergy status, other than to drugs and biological substances
CPT/HCPCS: 99214; G2211

== ENCOUNTER → 2024-12-15 10:30 | Outpatient (BNVA) | payer MEDICARE, SELFPAY | PROVIDERS: PCP Family Medicine; Visit Provider Internal Medicine Pulmonary Disease | DX: J44.89 Other specified chronic obstructive pulmonary disease (principal); A31.0 Pulmonary mycobacterial infection; F17.210 Nicotine dependence, cigarettes, uncomplicated; Z91.09 Other allergy status, other than to drugs and biological substances | CPT/HCPCS: 99212 ==

== ENCOUNTER 2024-12-16 19:37 | Emergency (ER) | payer MEDICARE, SELFPAY ==
[2024-12-16 19:54] VITALS: BP 120/66; PULSE 88; RESP 16; TEMP 36.6; O2SAT 97; BMI 15.8
--- NOTE | 2024-12-16 19:55 | ED.SOB ---
HPI - SOB/Dyspnea General Chief Complaint: Dyspnea Stated Complaint: sob/hard time breathing-PCP wants a catscan done Related Data Home Medications ?Medication ?Instructions ?Recorded ?Confirmed albuterol sulfate 2.5 mg/3 mL 2.5 mg inhalation Q4-6H PRN 12/16/23 12/10/24 (0.083 %) solution for nebulization Wheezing azelastine 137 mcg (0.1 %) nasal 1 spray intranasal .daily x1 12/16/23 12/10/24 spray cetirizine 10 mg tablet 10 mg PO DAILY PRN Allergic 12/16/23 12/10/24 Reaction escitalopram oxalate 10 mg tablet 20 mg PO DAILY 07/28/24 12/10/24 Previous Rx's ?Medication ?Instructions ?Recorded ipratropium 0.5 mg-albuterol 3 mg 3 ml inhalation BID PRN wheezing 02/25/24 (2.5 mg base)/3 mL nebulization #180 mL soln ethambutol 400 mg tablet 1 g (2.5 x 400 mg) PO 3XW #35 tabs 06/17/24 buspirone 10 mg tablet 15 mg (1.5 x 10 mg) PO BID 30 days 06/20/24 #90 tabs quetiapine 25 mg tablet (Seroquel) 25 mg PO BEDTIME #90 tabs 07/20/24 albuterol sulfate 90 mcg/actuation 2 puff inhalation QID 30 days #8.5 07/28/24 aerosol inhaler grams valacyclovir 500 mg tablet 500 mg PO DAILY #90 tabs 08/13/24 rifampin 300 mg capsule 600 mg (2 x 300 mg) PO .Friday08/27/24Friday days #14 caps fluticasone fur. 200 mcg-umeclid 1 inh inhalation DAILY #60 ea 09/23/24 62.5 mcg-vilant 25 mcg inhalat.powder (Trelegy Ellipta) montelukast 10 mg tablet 10 mg PO DAILY #30 tabs 09/23/24 (Singulair) lorazepam 0.5 mg tablet 0.5 mg PO DAILY PRN anxiety 30 10/22/24 days #30 tabs azithromycin 500 mg tablet 500 mg PO .Friday11/11/24 days #14 tabs dupilumab 300 mg/2 mL subcutaneous 300 mg (2 mL) subcut Q2W #4 mL 11/16/24 pen injector (Novalere FP) prednisone 5 mg tablet 5 mg PO DIRECTED #50 tabs 12/15/24 apixaban 5 mg (74 tabs) tablets in See Rx Instructions PO PER PKG DIR 12/20/24 a dose pack (Eliquis DVT-PE Treat #74 ea 30D Start) metoprolol tartrate 25 mg tablet 25 mg PO DAILY #90 tabs 12/20/24 Allergies Allergy/AdvReac Type Severity Reaction Status Date / Time banana Allergy headaches Verified 12/16/24 19:55 chocolate Allergy hives Verified 12/16/24 19:55 codeine Allergy runny nose Verified 12/16/24 19:55 Influenza Virus Vaccines Allergy guillain-ba Verified 12/16/24 19:55 rre latex Allergy itching, Verified 12/16/24 19:55 rash sertraline [From Zoloft] Allergy Dizziness Verified 12/16/24 19:55 soy Allergy swelling/ed Verified 12/16/24 19:55 trista beef Allergy headaches Uncoded 12/10/24 09:56 cucumber Allergy rhinitis Uncoded 12/10/24 09:56 demerol Allergy unknown Uncoded 12/10/24 09:56 pork Allergy intolerant Uncoded 12/10/24 09:56 PMFSH Past Medical History Medical History (Updated 12/25/24 @ 15:15 by PREETI Laguerre) Multiple food 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 Osteoporosis Multinodular thyroid History of cervical cancer Nicotine dependence, cigarettes, uncomplicated History of right breast cancer COPD (chronic obstructive pulmonary disease) Surgical History (Updated 11/03/24 @ 10:51 by Rashmi Sommer) History of partial mastectomy of right breast History of bronchoscopy History of hysterectomy History of breast augmentation History of appendectomy Family History Family History (System 11/03/24 @ 10:51 by Rashmi Sommer) Father Prostate CA Social History Social History (System 11/03/24 @ 10:51 by Rashmi Sommer) Household Members: None Housing: House Patient Tobacco Use Status: Current everyday Tobacco user Cigarette Packs Per Day: 0.5 Cigarettes Per Day: 5 Years Smoked: 35 e-Cigarette/Vaping Use: Never Used service: No Current occupational status: employed Cognitive needs: No Hearing needs: No Vision needs: Yes Physical Exam Vital Signs: Vital Signs: Last Vital Signs Temp 97.8 F 12/16/24 19:54 Pulse 101 H 12/16/24 20:32 Resp 22 H 12/16/24 20:32 BP 120/66 12/16/24 19:54 Pulse Ox 97 12/16/24 19:54 O2 Del Method Room Air 12/16/24 19:54 BMI result Body Mass Index 15.8 Course Course Course Narrative: This is a Rapid Medical Exam performed in triage by Binta Lynn PA-C. Full HPI, ROS and PE to be performed by primary ED provider. 73 year old female with pmhx significant for COPD, recent BAL cultures growing MAC currently on triple therapy, breast cancer (in remission >16 yrs), cervical cancer (s/p TAHBSO), frontal lobe syndrome, Guillain-Zal[place] presents to the ED c/o SOB x this AM. Was seen by pulmonology yesterday and started on prednisone which she reports she is taking. Denies chest pain PE: Mild expiratory wheeze. Talking in complete sentences. Nontoxic Plan: EKG, labs, CXR, SARs Medications Administered Discontinued Medications Generic Name Dose Route Start Last Admin Trade Name Freq PRN Reason Stop Dose Admin Albuterol Sulfate 2.5 mg/ 0 mg 12/16/24 20:28 12/16/24 20:30 Albuterol/Ipratropium 3 ml INHALE 12/16/24 20:29 1 dose ONCE ONE Administration Medical Decision Making Lab Data 12/16/24 20:24 12/16/24 20:24 Labs: Lab Results 12/16/24 Range/Units 20:24 WBC 8.0 (4.8-10.8) X10*3/uL RBC 4.82 (4.20-5.50) X10*6/uL Hgb 15.8 (12.0-16.0) g/dl Hct 44.1 (37.0-47.0) % MCV 91.5 (80.0-98.0) fL MCH 32.8 (27.0-33.0) pg MCHC 35.8 H (31.0-35.0) g/dl RDW 13.1 (11.0-16.0) % Plt Count 293 (160-400) X10*3/uL MPV 9.1 L (9.4-12.3) fL Immature Gran % (Auto) 0.3 (0.0-0.4) % Neut % (Auto) 57.6 (45-73) % Lymph % (Auto) 29.4 (20-40) % [place] % (Auto) 8.8 (2-11) % Eos % (Auto) 3.3 (0-4) % Baso % (Auto) 0.6 (0-2) % Lymph # (Auto) 2.3 (1.2-4.9) X10*3/uL [place] # (Auto) 0.7 (0.1-1.2) X10*3/uL Eos # (Auto) 0.3 (0.0-0.4) X10*3/uL Baso # (Auto) 0.1 (0.0-0.2) X10*3/uL Abs Immat Gran (auto) 0.02 (0.00-0.03) X10*3/uL Absolute Neuts (auto) 4.6 (2.0-8.3) x10*3/uL Absolute Nucleated RBC 0.000 (0.0-0.012) X10*3/uL Nucleated RBC % (auto) 0.0 (0.0-0.2) /100WBC Sodium 143 (135-145) mmol/L Potassium 3.9 (3.3-5.1) mmol/L Chloride 110 H (96-108) mmol/L Carbon Dioxide 24 (22-29) mmol/L Anion Gap 13 (12-20) BUN 23 H (9-16) mg/dL Creatinine 0.74 (0.5-1.4) mg/dL Estim Creat Clear Calc 46.7 Estimated GFR > 60 Random Glucose 106 (60-115) mg/dL Calcium 9.2 (8.4-10.2) mg/dL Magnesium 2.2 (1.6-2.6) mg/dL Total Bilirubin 0.2 (0.0-1.0) mg/dL Direct Bilirubin < 0.2 (0.0-0.5) mg/dL AST 24 (5-31) U/L ALT 15 (0-31) U/L Alkaline Phosphatase 100 (39-117) U/L Troponin I High Sens < 2.7 (<3.5-17.0) ng/L Total Protein 7.0 (6.5-8.0) g/dL Albumin 4.3 (3.5-5.0) g/dL Influenza Type A (PCR) NEGATIVE (Negative) Influenza Type B (PCR) NEGATIVE (Negative) RSV RNA Qual (PCR) NEGATIVE (Negative) SARS-CoV-2 RNA (RT-PCR) NEGATIVE (Negative) Discharge Plan Discharge Clinical Impression: Shortness of breath Patient Disposition: Left W/O Completing Treatment Prescriptions: No Action ipratropium-albuterol 0.5 mg-3 mg(2.5 mg base)/3 mL solution for nebulization 3 ml inhalation BID PRN (Reason: wheezing) Qty: 180 2RF buspirone 10 mg tablet 15 mg PO BID 30 Days Qty: 90 2RF quetiapine [Seroquel] 25 mg tablet 25 mg PO BEDTIME Qty: 90 3RF valacyclovir 500 mg tablet 500 mg PO DAILY Qty: 90 3RF lorazepam 0.5 mg tablet 0.5 mg PO DAILY PRN (Reason: anxiety) 30 Days Qty: 30 0RF azithromycin 500 mg tablet 500 mg PO .Friday 30 Days Qty: 14 12RF metoprolol tartrate 25 mg tablet 25 mg PO DAILY Qty: 90 0RF Eliquis DVT-PE Treat 30D Start 5 mg (74 tabs) tablets,dose pack See Rx Instructions PO PER PKG DIR Qty: 74 0RF Rx Instructions: PO PER PKG DIR cetirizine 10 mg tablet 10 mg PO DAILY PRN (Reason: Allergic Reaction) azelastine 137 mcg (0.1 %) aerosol,spray 1 spray intranasal .daily x1 Rx Instructions: administer into each nostril albuterol sulfate 2.5 mg /3 mL (0.083 %) solution for nebulization 2.5 mg inhalation Q4-6H PRN (Reason: Wheezing) rifampin 300 mg capsule 600 mg PO .Friday 30 Days Qty: 14 12RF prednisone 5 mg tablet 5 mg PO DIRECTED Qty: 50 0RF Rx Instructions: Take 2 tabs daily for 3 weeks, then take 1 tab daily for 1 week ethambutol 400 mg tablet 1 g PO 3XW Qty: 35 12RF escitalopram oxalate 10 mg tablet 20 mg PO DAILY albuterol sulfate 90 mcg/actuation HFA aerosol inhaler 2 puff inhalation QID 30 Days Qty: 8.5 4RF montelukast [Singulair] 10 mg tablet 10 mg PO DAILY Qty: 30 6RF Trelegy Ellipta 200-62.5-25 mcg blister with device 1 inh inhalation DAILY Qty: 60 6RF Dupixent Pen 300 mg/2 mL pen injector 300 mg subcut Q2W Qty: 4 12RF Rx Instructions: Initial dose 600 mg, then 300 mg every 2 weeks subcutaneously Discharge Date/Time: 12/17/24 00:33
--- NOTE | 2024-12-16 19:58 | ECG_ITS ---
Test Reason : SOB Blood Pressure : */* mmHG Vent. Rate : 76 BPM Atrial Rate : 76 BPM P-R Int : 152 ms QRS Dur : 76 ms QT Int : 388 ms P-R-T Axes : 81 78 71 degrees QTcB Int : 436 ms Normal sinus rhythm Possible Left atrial enlargement Borderline ECG No previous ECGs available Referred By: Binta Lynn Electronically Signed By: Melvin Hedrick
[2024-12-16 20:30] LABS: MANUAL DIFF FLAG NO
[2024-12-16] MEDS: Albuterol Sulfate 2.5 MG, Albuterol/Iprat 2.5/0.5MG 3 ML 3 ML INHALE (20:30)
[2024-12-16 20:32] VITALS: PULSE 101; RESP 22; O2SAT 93
[2024-12-16 20:32] LABS: Basophils Absolute Auto 0.1 X10*3/uL (0.0-0.2); Basophils Percent Auto 0.6 % (0-2); Eosinophils Absolute Auto 0.3 X10*3/uL (0.0-0.4); Eosinophils Percent Auto 3.3 % (0-4); Hematocrit 44.1 % (37.0-47.0); Hemoglobin 15.8 g/dl (12.0-16.0); Imm Gran Abs Auto 0.02 X10*3/uL (0.00-0.03); Imm Gran Pct Auto 0.3 % (0.0-0.4); Lymphocytes Absolute Auto 2.3 X10*3/uL (1.2-4.9); Lymphocytes Percent Auto 29.4 % (20-40); Mean Corpuscular HGB Conc 35.8 g/dl (31.0-35.0); Mean Corpuscular Hemoglobin 32.8 pg (27.0-33.0); Mean Corpuscular Volume 91.5 fL (80.0-98.0); Mean Platelet Volume 9.1 fL (9.4-12.3); Monocytes Absolute Auto 0.7 X10*3/uL (0.1-1.2); Monocytes Percent Auto 8.8 % (2-11); Neutrophils Absolute Auto 4.6 x10*3/uL (2.0-8.3); Neutrophils Percent Auto 57.6 % (45-73); Platelet Count 293 X10*3/uL (160-400); Red Blood Count 4.82 X10*6/uL (4.20-5.50); Red Cell Distribution Width 13.1 % (11.0-16.0)
[2024-12-16 20:48] LABS: Alanine Aminotransferase 15 U/L (0-31); Albumin Level 4.3 g/dL (3.5-5.0); Alkaline Phosphatase 100 U/L (39-117); Anion Gap 13 (12-20); Aspartate Amino Transferase 24 U/L (5-31); Bilirubin Direct < 0.2 mg/dL (0.0-0.5); Bilirubin Total 0.2 mg/dL (0.0-1.0); Blood Urea Nitrogen 23 mg/dL (9-16); Calcium 9.2 mg/dL (8.4-10.2); Carbon Dioxide 24 mmol/L (22-29); Chloride 110 mmol/L (96-108); Creatinine Clr Calc Pharmacy 46.7; Estimated Glomerular Filt Rate > 60; Glucose Random 106 mg/dL (60-115); Magnesium 2.2 mg/dL (1.6-2.6); Potassium 3.9 mmol/L (3.3-5.1); Sodium 143 mmol/L (135-145)
[2024-12-16 20:57] LABS: Troponin-I High Sensitivity < 2.7 ng/L (<3.5-17.0)
[2024-12-16 21:12] LABS: Influenza A PCR NEGATIVE (Negative); Influenza B PCR NEGATIVE (Negative); Resp Syncy Virus RNA Qual PCR NEGATIVE (Negative); SARS COV2 PCR INHOUSE NEGATIVE (Negative)
== END 2024-12-17 00:33 | disposition left against medical advice (07) ==
LOC: HO.ED 12-17 00:26
PROVIDERS: Physician Assistant; Emergency Provider Emergency Medicine; PCP Family Medicine
DX: R06.02 Shortness of breath (principal); R94.31 Abnormal electrocardiogram [ECG] [EKG]; F17.210 Nicotine dependence, cigarettes, uncomplicated; Z79.899 Other long term (current) drug therapy; Z03.818 Encounter for observation for suspected exposure to other biological agents ruled out
CPT/HCPCS: 0241U; 80048; 80076; 83735; 84484; 85025; 93005; 94640; 99284

== ENCOUNTER → 2024-12-16 19:58 | Outpatient (BNV) | payer MEDICARE, SELFPAY | PROVIDERS: Emergency Provider Emergency Medicine; PCP Family Medicine; Visit Provider Internal Medicine Cardiovascular Disease | DX: R06.02 Shortness of breath (principal) | CPT/HCPCS: 93010 ==

== ENCOUNTER 2024-12-20 08:06 | Outpatient (REF) | payer MEDICARE, SELFPAY ==
--- NOTE | ~2024-12-20 | CT_ITS ---
EXAMINATION: CT CHEST ANGIOGRAPHY WITH IV CONTRAST INDICATION: DYSPNEA COMPARISON: Comparison is made with the prior examination dated 01/29/2024. TECHNIQUE: Helical CT scan of the chest was performed following administration of intravenous contrast (65 mL Omnipaque 350). The contrast bolus was timed to optimally opacify the pulmonary arteries. Thin sections were obtained through the pulmonary arteries. Coronal and sagittal reformatted images were generated. 3D/MIP reconstructed images are also obtained and reviewed. This CT exam was performed with one or more of the following dose reduction techniques: automated exposure control, adjustment of the mA and/or kV according to patient size, use of iterative reconstruction technique. DLP: 67 mGy-cm CHEST: THYROID: The thyroid gland is unremarkable. PULMONARY ARTERIES: There is a filling defect within a left upper lobe pulmonary arterial branch, consistent with PE. LUNGS: There is severe emphysema. Again seen is a left upper lobe masslike consolidation with cavitation. This is slightly smaller in size on the current study measuring 5.6 x 4.4 x 4.9 cm. Is difficult to distinguish between mass and consolidation. Again seen is a 7 mm nodule in the left lower lobe (series 12 image 89). MEDIASTINUM: There is no mediastinal lymphadenopathy. ELIAS: There is no hilar lymphadenopathy. CARDIOVASCULATURE: The heart is mildly enlarged. There is dilatation of the right ventricle when compared to the prior study which may indicate right heart strain. There is no pericardial effusion. The thoracic aorta is normal in caliber. DEGREE OF CORONARY CALCIFICATION: not evaluable, due to dense contrast in the coronary arteries PLEURA: There is no pleural effusion. No pneumothorax. MAIN AIRWAYS: The mainstem bronchi and proximal branches are patent. AXILLA: There is no axillary lymphadenopathy. UPPER ABDOMEN: The visualized portions of the liver, spleen, and adrenals are unremarkable. BONES AND SOFT TISSUES: Bilateral breast implants are noted. The bones are intact. CT/CT angio chest PE protocol IMPRESSION: 1. Findings consistent with left upper lobe PE. Right ventricular dilatation is suggestive of right heart strain. 2. Masslike consolidation with cavitation in the left upper lobe as seen previously. This is slightly smaller in size. It is difficult to distinguish between mass and consolidation. 3. Findings were communicated to Dr. Chavarria by secure text message on 12/20/2024 at 9:39 AM and confirmed received at 9:40 AM. Electronically signed by: Diaz Dominguez MD 12/20/2024 09:44 AM EDT
--- OUTSIDE RECORDS SUMMARY | 2024-12-20 08:27 | XMS_ITS | Clinical Summary ---
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 [facility] Department of Internal Medicine recommends using National [...] Sandoval should beclassified as having osteoporosis. [facility] Department of Internal Medicine recommendsusing National Osteoporosis [...] EDT Narrative 06/27/2023 6:12 AM EDT [facility] Diagnostic Imaging Department [address] [place] [address] Patient: ??CAROLE SANDOVAL ?/Age/Sex: 1950 - Unit#: ??[id number] ? Location/Status: ??SPDICATLS/REG CLI ? 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
[2024-12-20] MEDS: iohexoL 350 MG/ML 75 ML INFUS..BTL 65 ML IV (08:46)
== END 2024-12-20 08:07 | disposition home or self-care (01) ==
LOC: HO.CT 08:06
PROVIDERS: PCP Family Medicine; Visit Provider Internal Medicine Pulmonary Disease
DX: R06.00 Dyspnea, unspecified (principal)
CPT/HCPCS: 71275; Q9967

== ENCOUNTER → 2024-12-20 08:14 | Outpatient (BNV) | payer MEDICARE, SELFPAY | PROVIDERS: PCP Family Medicine; Visit Provider Radiology Diagnostic Radiology | DX: R06.00 Dyspnea, unspecified (principal) | CPT/HCPCS: 71275 ==

== ENCOUNTER 2024-12-29 12:31 | Emergency (ER) | payer MEDICARE, SELFPAY ==
--- NOTE | ~2024-12-29 | XR_ITS ---
EXAMINATION: XR CHEST CLINICAL INFORMATION: sob COMPARISON: 09/09/2024. CTPA 12/20/2024. TECHNIQUE: 2 views of the chest were obtained. FINDINGS: The cardiac, hilar, and mediastinal contours are normal. Aortic mural calcifications. Advanced COPD. Similar-appearing cavitary masslike opacity in the left apex, without significant change. Lungs otherwise clear. There is no focal osseous or soft tissue abnormality. XR/XR chest 2V IMPRESSION: 1. No significant interval change in the masslike cavitary opacity in the left lung apex. 2. Advanced COPD. Lungs otherwise grossly clear. Electronically signed by: Mirza Hall MD 12/29/2024 01:27 PM EDT RP
--- NOTE | 2024-12-29 12:35 | ED_ITS ---
HPI - SOB/Dyspnea General Chief Complaint: Dyspnea Stated Complaint: Chest Congestion, Shortness of Breath Time Seen by Provider: 12/29/24 16:15 Related Data Home Medications ?Medication ?Instructions ?Recorded ?Confirmed albuterol sulfate 2.5 mg/3 mL 2.5 mg inhalation Q4-6H PRN 12/16/23 12/10/24 (0.083 %) solution for nebulization Wheezing azelastine 137 mcg (0.1 %) nasal 1 spray intranasal .daily x1 12/16/23 12/10/24 spray cetirizine 10 mg tablet 10 mg PO DAILY PRN Allergic 12/16/23 12/10/24 Reaction escitalopram oxalate 10 mg tablet 20 mg PO DAILY 07/28/24 12/10/24 Previous Rx's ?Medication ?Instructions ?Recorded ipratropium 0.5 mg-albuterol 3 mg 3 ml inhalation BID PRN wheezing 02/25/24 (2.5 mg base)/3 mL nebulization #180 mL soln ethambutol 400 mg tablet 1 g (2.5 x 400 mg) PO 3XW #35 tabs 06/17/24 buspirone 10 mg tablet 15 mg (1.5 x 10 mg) PO BID 30 days 06/20/24 #90 tabs quetiapine 25 mg tablet (Seroquel) 25 mg PO BEDTIME #90 tabs 07/20/24 albuterol sulfate 90 mcg/actuation 2 puff inhalation QID 30 days #8.5 07/28/24 aerosol inhaler grams valacyclovir 500 mg tablet 500 mg PO DAILY #90 tabs 08/13/24 rifampin 300 mg capsule 600 mg (2 x 300 mg) PO .Friday08/27/24Friday days #14 caps fluticasone fur. 200 mcg-umeclid 1 inh inhalation DAILY #60 ea 09/23/24 62.5 mcg-vilant 25 mcg inhalat.powder (Trelegy Ellipta) montelukast 10 mg tablet 10 mg PO DAILY #30 tabs 09/23/24 (Singulair) lorazepam 0.5 mg tablet 0.5 mg PO DAILY PRN anxiety 30 10/22/24 days #30 tabs azithromycin 500 mg tablet 500 mg PO .Friday11/11/24 days #14 tabs dupilumab 300 mg/2 mL subcutaneous 300 mg (2 mL) subcut Q2W #4 mL 11/16/24 pen injector (DupixTermScout) apixaban 5 mg (74 tabs) tablets in See Rx Instructions PO PER PKG DIR 12/20/24 a dose pack (Eliquis DVT-PE Treat #74 ea 30D Start) metoprolol tartrate 25 mg tablet 25 mg PO DAILY #90 tabs 12/20/24 prednisone 10 mg tablet 10 mg PO DAILY #30 tabs 12/30/24 Allergies Allergy/AdvReac Type Severity Reaction Status Date / Time banana Allergy headaches Verified 12/29/24 12:39 chocolate Allergy hives Verified 12/29/24 12:39 codeine Allergy runny nose Verified 12/29/24 12:39 Influenza Virus Vaccines Allergy guillain-ba Verified 12/29/24 12:39 rre latex Allergy itching, Verified 12/29/24 12:39 rash sertraline [From Zoloft] Allergy Dizziness Verified 12/29/24 12:39 soy Allergy swelling/ed Verified 12/29/24 12:39 trista beef Allergy headaches Uncoded 12/10/24 09:56 cucumber Allergy rhinitis Uncoded 12/10/24 09:56 demerol Allergy unknown Uncoded 12/10/24 09:56 pork Allergy intolerant Uncoded 12/10/24 09:56 PMFSH Past Medical History Medical History (Updated 12/29/24 @ 16:43 by Angelica Walters MD) 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 Osteoporosis Multinodular thyroid History of cervical cancer Nicotine dependence, cigarettes, uncomplicated History of right breast cancer COPD (chronic obstructive pulmonary disease) Surgical History (Updated 11/03/24 @ 10:51 by Rashmi Sommer) History of partial mastectomy of right breast History of bronchoscopy History of hysterectomy History of breast augmentation History of appendectomy Family History Family History (System 11/03/24 @ 10:51 by Rashmi Sommer) Father Prostate CA Social History Social History (System 11/03/24 @ 10:51 by Rashmi Sommer) Household Members: None Housing: House Patient Tobacco Use Status: Current everyday Tobacco user Cigarette Packs Per Day: 0.5 Cigarettes Per Day: 5 Years Smoked: 35 Smoked in Last 30 Days: Yes e-Cigarette/Vaping Use: Never Used Use of substances other than those prescribed or required for medical reasons: No Advance Directives: No Advance Directives Information Provided: Yes service: No Current occupational status: employed Cognitive needs: No Hearing needs: No Vision needs: Yes Physical Exam 2 Vital Signs: Vital Signs: Last Vital Signs Temp 97.3 F 12/29/24 12:36 Pulse 100 12/29/24 15:08 Resp 22 H 12/29/24 15:08 BP 130/77 12/29/24 15:08 Pulse Ox 95 12/29/24 15:08 O2 Del Method Room Air 12/29/24 15:08 BMI result Body Mass Index 15.6 Course Course Course Narrative: This is a Rapid Medical Exam performed in triage by Binta Lynn PA-C. Full HPI, ROS and PE to be performed by primary ED provider. 74-year-old female with a past medical history osteoporosis, breast CA, COPD, BAL cultures growing MAC (currently on triple therapy), PE on Eliquis (Dx 2wks ago) presenting to the ED sent in from c/o congestion in R lung & worsening SOB x2 days. Admits to lightheadedness yesterday. Is currently on Prednisone taper PE: talking in short sentences, coarse lung sounds w/exp wheeze Plan: EKG, labs, CXR, SARs Medications Administered Discontinued Medications Generic Name Dose Route Start Last Admin Trade Name Freq PRN Reason Stop Dose Admin Albuterol Sulfate 2.5 mg/ 0 mg 12/29/24 12:56 12/29/24 13:01 Albuterol/Ipratropium 3 ml INHALE 12/29/24 12:57 1 dose ONCE ONE Administration Medical Decision Making Lab Data 12/29/24 14:41 12/29/24 13:43 Labs: Lab Results 12/29/24 12/29/24 Range/Units 13:43 14:41 WBC 4.7 L (4.8-10.8) X10*3/uL RBC 4.83 (4.20-5.50) X10*6/uL Hgb 15.7 (12.0-16.0) g/dl Hct 45.9 (37.0-47.0) % MCV 95.0 (80.0-98.0) fL MCH 32.5 (27.0-33.0) pg MCHC 34.2 (31.0-35.0) g/dl RDW 13.1 (11.0-16.0) % Plt Count 264 (160-400) X10*3/uL MPV 9.1 L (9.4-12.3) fL Immature Gran % (Auto) 0.0 (0.0-0.4) % Neut % (Auto) 71.3 (45-73) % Lymph % (Auto) 19.3 L (20-40) % [place] % (Auto) 7.1 (2-11) % Eos % (Auto) 1.7 (0-4) % Baso % (Auto) 0.6 (0-2) % Lymph # (Auto) 0.9 L (1.2-4.9) X10*3/uL [place] # (Auto) 0.3 (0.1-1.2) X10*3/uL Eos # (Auto) 0.1 (0.0-0.4) X10*3/uL Baso # (Auto) 0.0 (0.0-0.2) X10*3/uL Abs Immat Gran (auto) 0.00 (0.00-0.03) X10*3/uL Absolute Neuts (auto) 3.3 (2.0-8.3) x10*3/uL Absolute Nucleated RBC 0.000 (0.0-0.012) X10*3/uL Nucleated RBC % (auto) 0.0 (0.0-0.2) /100WBC PT 13.7 H D (10.9-12.4) SEC INR 1.2 H (0.9-1.1) Sodium 136 (135-145) mmol/L Potassium 3.8 (3.3-5.1) mmol/L Chloride 109 H (96-108) mmol/L Carbon Dioxide 16 L (22-29) mmol/L Anion Gap 15 (12-20) BUN 17 H (9-16) mg/dL Creatinine 0.74 (0.5-1.4) mg/dL Estim Creat Clear Calc 46.2 Estimated GFR > 60 Random Glucose 118 H (60-115) mg/dL Calcium 9.5 (8.4-10.2) mg/dL Magnesium 2.5 (1.6-2.6) mg/dL Total Bilirubin 1.0 (0.0-1.0) mg/dL Direct Bilirubin 0.5 (0.0-0.5) mg/dL AST 23 (5-31) U/L ALT 12 (0-31) U/L Alkaline Phosphatase 75 (39-117) U/L Troponin I High Sens < 2.7 (<3.5-17.0) ng/L B-Natriuretic Peptide 17 (<100) pg/mL Total Protein 7.3 (6.5-8.0) g/dL Albumin 3.9 (3.5-5.0) g/dL Influenza Type A (PCR) NEGATIVE (Negative) Influenza Type B (PCR) NEGATIVE (Negative) RSV RNA Qual (PCR) NEGATIVE (Negative) SARS-CoV-2 RNA (RT-PCR) NEGATIVE (Negative) Discharge Plan Discharge Clinical Impression: COPD (chronic obstructive pulmonary disease) Patient Disposition: Left W/O Completing Treatment Prescriptions: No Action ipratropium-albuterol 0.5 mg-3 mg(2.5 mg base)/3 mL solution for nebulization 3 ml inhalation BID PRN (Reason: wheezing) Qty: 180 2RF buspirone 10 mg tablet 15 mg PO BID 30 Days Qty: 90 2RF quetiapine [Seroquel] 25 mg tablet 25 mg PO BEDTIME Qty: 90 3RF valacyclovir 500 mg tablet 500 mg PO DAILY Qty: 90 3RF lorazepam 0.5 mg tablet 0.5 mg PO DAILY PRN (Reason: anxiety) 30 Days Qty: 30 0RF azithromycin 500 mg tablet 500 mg PO .Friday 30 Days Qty: 14 12RF metoprolol tartrate 25 mg tablet 25 mg PO DAILY Qty: 90 0RF Eliquis DVT-PE Treat 30D Start 5 mg (74 tabs) tablets,dose pack See Rx Instructions PO PER PKG DIR Qty: 74 0RF Rx Instructions: PO PER PKG DIR prednisone 10 mg tablet 10 mg PO DAILY Qty: 30 0RF cetirizine 10 mg tablet 10 mg PO DAILY PRN (Reason: Allergic Reaction) azelastine 137 mcg (0.1 %) aerosol,spray 1 spray intranasal .daily x1 Rx Instructions: administer into each nostril albuterol sulfate 2.5 mg /3 mL (0.083 %) solution for nebulization 2.5 mg inhalation Q4-6H PRN (Reason: Wheezing) rifampin 300 mg capsule 600 mg PO .Friday 30 Days Qty: 14 12RF ethambutol 400 mg tablet 1 g PO 3XW Qty: 35 12RF escitalopram oxalate 10 mg tablet 20 mg PO DAILY albuterol sulfate 90 mcg/actuation HFA aerosol inhaler 2 puff inhalation QID 30 Days Qty: 8.5 4RF montelukast [Singulair] 10 mg tablet 10 mg PO DAILY Qty: 30 6RF Trelegy Ellipta 200-62.5-25 mcg blister with device 1 inh inhalation DAILY Qty: 60 6RF Dupixent Pen 300 mg/2 mL pen injector 300 mg subcut Q2W Qty: 4 12RF Rx Instructions: Initial dose 600 mg, then 300 mg every 2 weeks subcutaneously Discharge Date/Time: 12/29/24 16:55
[2024-12-29 12:36] VITALS: BP 121/78; PULSE 102; RESP 22; TEMP 36.3; O2SAT 97; BMI 15.6
--- NOTE | 2024-12-29 12:39 | ECG_ITS ---
Test Reason : SOB Blood Pressure : */* mmHG Vent. Rate : 104 BPM Atrial Rate : 104 BPM P-R Int : 130 ms QRS Dur : 76 ms QT Int : 334 ms P-R-T Axes : 83 78 79 degrees QTcB Int : 439 ms Sinus tachycardia Biatrial enlargement Abnormal ECG When compared with ECG of 16-Dec-2024 20:13, No significant change was found Referred By: Binta Lynn Electronically Signed By: RENE RODRIGUES
[2024-12-29 13:01] VITALS: PULSE 100; RESP 16; O2SAT 96
[2024-12-29] MEDS: Albuterol Sulfate 2.5 MG, Albuterol/Iprat 2.5/0.5MG 3 ML 3 ML INHALE (13:01)
[2024-12-29 14:02] LABS: INTERNATIONAL NORM RATIO 1.2 (0.9-1.1); Prothrombin Time 13.7 SEC (10.9-12.4)
[2024-12-29 14:10] LABS: Alanine Aminotransferase 12 U/L (0-31); Albumin Level 3.9 g/dL (3.5-5.0); Alkaline Phosphatase 75 U/L (39-117); Anion Gap 15 (12-20); Aspartate Amino Transferase 23 U/L (5-31); Bilirubin Direct 0.5 mg/dL (0.0-0.5); Blood Urea Nitrogen 17 mg/dL (9-16); Calcium 9.5 mg/dL (8.4-10.2); Carbon Dioxide 16 mmol/L (22-29); Chloride 109 mmol/L (96-108); Creatinine Clr Calc Pharmacy 46.2; Estimated Glomerular Filt Rate > 60; Glucose Random 118 mg/dL (60-115); Magnesium 2.5 mg/dL (1.6-2.6); Potassium 3.8 mmol/L (3.3-5.1); Sodium 136 mmol/L (135-145); Total Protein 7.3 g/dL (6.5-8.0)
[2024-12-29 14:16] LABS: Troponin-I High Sensitivity < 2.7 ng/L (<3.5-17.0)
[2024-12-29 14:27] LABS: Influenza A PCR NEGATIVE (Negative); Influenza B PCR NEGATIVE (Negative); Resp Syncy Virus RNA Qual PCR NEGATIVE (Negative); SARS COV2 PCR INHOUSE NEGATIVE (Negative)
[2024-12-29 14:49] LABS: Basophils Percent Auto 0.6 % (0-2); Eosinophils Absolute Auto 0.1 X10*3/uL (0.0-0.4); Eosinophils Percent Auto 1.7 % (0-4); Hematocrit 45.9 % (37.0-47.0); Hemoglobin 15.7 g/dl (12.0-16.0); Lymphocytes Absolute Auto 0.9 X10*3/uL (1.2-4.9); Lymphocytes Percent Auto 19.3 % (20-40); Mean Corpuscular HGB Conc 34.2 g/dl (31.0-35.0); Mean Corpuscular Hemoglobin 32.5 pg (27.0-33.0); Mean Platelet Volume 9.1 fL (9.4-12.3); Monocytes Absolute Auto 0.3 X10*3/uL (0.1-1.2); Monocytes Percent Auto 7.1 % (2-11); Neutrophils Absolute Auto 3.3 x10*3/uL (2.0-8.3); Neutrophils Percent Auto 71.3 % (45-73); Platelet Count 264 X10*3/uL (160-400); Red Blood Count 4.83 X10*6/uL (4.20-5.50); Red Cell Distribution Width 13.1 % (11.0-16.0); White Blood Count 4.7 X10*3/uL (4.8-10.8)
[2024-12-29 15:04] LABS: B Type Natriuretic Peptide 17 pg/mL (<100)
[2024-12-29 15:08] VITALS: BP 130/77; PULSE 100; RESP 22; O2SAT 95
[2024-12-29 15:33] LABS: MANUAL DIFF FLAG NO
--- NOTE | 2024-12-29 16:42 | ED.SOB ---
HPI - SOB/Dyspnea General Chief Complaint: Dyspnea Stated Complaint: Chest Congestion, Shortness of Breath Time Seen by Provider: 12/29/24 16:15 Related Data Home Medications ?Medication ?Instructions ?Recorded ?Confirmed albuterol sulfate 2.5 mg/3 mL 2.5 mg inhalation Q4-6H PRN 12/16/23 12/10/24 (0.083 %) solution for nebulization Wheezing azelastine 137 mcg (0.1 %) nasal 1 spray intranasal .daily x1 12/16/23 12/10/24 spray cetirizine 10 mg tablet 10 mg PO DAILY PRN Allergic 12/16/23 12/10/24 Reaction escitalopram oxalate 10 mg tablet 20 mg PO DAILY 07/28/24 12/10/24 Previous Rx's ?Medication ?Instructions ?Recorded ipratropium 0.5 mg-albuterol 3 mg 3 ml inhalation BID PRN wheezing 02/25/24 (2.5 mg base)/3 mL nebulization #180 mL soln ethambutol 400 mg tablet 1 g (2.5 x 400 mg) PO 3XW #35 tabs 06/17/24 buspirone 10 mg tablet 15 mg (1.5 x 10 mg) PO BID 30 days 06/20/24 #90 tabs quetiapine 25 mg tablet (Seroquel) 25 mg PO BEDTIME #90 tabs 07/20/24 albuterol sulfate 90 mcg/actuation 2 puff inhalation QID 30 days #8.5 07/28/24 aerosol inhaler grams valacyclovir 500 mg tablet 500 mg PO DAILY #90 tabs 08/13/24 rifampin 300 mg capsule 600 mg (2 x 300 mg) PO .Friday08/27/24Friday days #14 caps fluticasone fur. 200 mcg-umeclid 1 inh inhalation DAILY #60 ea 09/23/24 62.5 mcg-vilant 25 mcg inhalat.powder (Trelegy Ellipta) montelukast 10 mg tablet 10 mg PO DAILY #30 tabs 09/23/24 (Singulair) lorazepam 0.5 mg tablet 0.5 mg PO DAILY PRN anxiety 30 10/22/24 days #30 tabs azithromycin 500 mg tablet 500 mg PO .Friday11/11/24 days #14 tabs dupilumab 300 mg/2 mL subcutaneous 300 mg (2 mL) subcut Q2W #4 mL 11/16/24 pen injector (DupixThe Spoken Thought) prednisone 5 mg tablet 5 mg PO DIRECTED #50 tabs 12/15/24 apixaban 5 mg (74 tabs) tablets in See Rx Instructions PO PER PKG DIR 12/20/24 a dose pack (Eliquis DVT-PE Treat #74 ea 30D Start) metoprolol tartrate 25 mg tablet 25 mg PO DAILY #90 tabs 12/20/24 Allergies Allergy/AdvReac Type Severity Reaction Status Date / Time banana Allergy headaches Verified 12/29/24 12:39 chocolate Allergy hives Verified 12/29/24 12:39 codeine Allergy runny nose Verified 12/29/24 12:39 Influenza Virus Vaccines Allergy guillain-ba Verified 12/29/24 12:39 rre latex Allergy itching, Verified 12/29/24 12:39 rash sertraline [From Zoloft] Allergy Dizziness Verified 12/29/24 12:39 soy Allergy swelling/ed Verified 12/29/24 12:39 trista beef Allergy headaches Uncoded 12/10/24 09:56 cucumber Allergy rhinitis Uncoded 12/10/24 09:56 demerol Allergy unknown Uncoded 12/10/24 09:56 pork Allergy intolerant Uncoded 12/10/24 09:56 [facility] Past Medical History Medical History (Updated 12/29/24 @ 16:43 by Angelica Walters MD) 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 Osteoporosis Multinodular thyroid History of cervical cancer Nicotine dependence, cigarettes, uncomplicated History of right breast cancer COPD (chronic obstructive pulmonary disease) Surgical History (Updated 11/03/24 @ 10:51 by Rashmi Sommer) History of partial mastectomy of right breast History of bronchoscopy History of hysterectomy History of breast augmentation History of appendectomy Family History Family History (System 11/03/24 @ 10:51 by Rashmi Sommer) Father Prostate CA Social History Social History (System 11/03/24 @ 10:51 by Rashmi Sommer) Household Members: None Housing: House Patient Tobacco Use Status: Current everyday Tobacco user Cigarette Packs Per Day: 0.5 Cigarettes Per Day: 5 Years Smoked: 35 Smoked in Last 30 Days: Yes e-Cigarette/Vaping Use: Never Used Use of substances other than those prescribed or required for medical reasons: No Advance Directives: No Advance Directives Information Provided: Yes service: No Current occupational status: employed Cognitive needs: No Hearing needs: No Vision needs: Yes Physical Exam Vital Signs: Vital Signs: Last Vital Signs Temp 97.3 F 12/29/24 12:36 Pulse 100 12/29/24 15:08 Resp 22 H 12/29/24 15:08 BP 130/77 12/29/24 15:08 Pulse Ox 95 12/29/24 15:08 O2 Del Method Room Air 12/29/24 15:08 BMI result Body Mass Index 15.6 Medications Administered Discontinued Medications Generic Name Dose Route Start Last Admin Trade Name Zena PRN Reason Stop Dose Admin Albuterol Sulfate 2.5 mg/ 0 mg 12/29/24 12:56 12/29/24 13:01 Albuterol/Ipratropium 3 ml INHALE 12/29/24 12:57 1 dose ONCE ONE Administration Medical Decision Making Medical Decision Making MDM Narrative: I did not see this patient she eloped prior to me seeing her. Lab Data 12/29/24 14:41 12/29/24 13:43 Labs: Lab Results 12/29/24 12/29/24 Range/Units 13:43 14:41 WBC 4.7 L (4.8-10.8) X10*3/uL RBC 4.83 (4.20-5.50) X10*6/uL Hgb 15.7 (12.0-16.0) g/dl Hct 45.9 (37.0-47.0) % MCV 95.0 (80.0-98.0) fL MCH 32.5 (27.0-33.0) pg MCHC 34.2 (31.0-35.0) g/dl RDW 13.1 (11.0-16.0) % Plt Count 264 (160-400) X10*3/uL MPV 9.1 L (9.4-12.3) fL Immature Gran % (Auto) 0.0 (0.0-0.4) % Neut % (Auto) 71.3 (45-73) % Lymph % (Auto) 19.3 L (20-40) % [place] % (Auto) 7.1 (2-11) % Eos % (Auto) 1.7 (0-4) % Baso % (Auto) 0.6 (0-2) % Lymph # (Auto) 0.9 L (1.2-4.9) X10*3/uL [place] # (Auto) 0.3 (0.1-1.2) X10*3/uL Eos # (Auto) 0.1 (0.0-0.4) X10*3/uL Baso # (Auto) 0.0 (0.0-0.2) X10*3/uL Abs Immat Gran (auto) 0.00 (0.00-0.03) X10*3/uL Absolute Neuts (auto) 3.3 (2.0-8.3) x10*3/uL Absolute Nucleated RBC 0.000 (0.0-0.012) X10*3/uL Nucleated RBC % (auto) 0.0 (0.0-0.2) /100WBC PT 13.7 H D (10.9-12.4) SEC INR 1.2 H (0.9-1.1) Sodium 136 (135-145) mmol/L Potassium 3.8 (3.3-5.1) mmol/L Chloride 109 H (96-108) mmol/L Carbon Dioxide 16 L (22-29) mmol/L Anion Gap 15 (12-20) BUN 17 H (9-16) mg/dL Creatinine 0.74 (0.5-1.4) mg/dL Estim Creat Clear Calc 46.2 Estimated GFR > 60 Random Glucose 118 H (60-115) mg/dL Calcium 9.5 (8.4-10.2) mg/dL Magnesium 2.5 (1.6-2.6) mg/dL Total Bilirubin 1.0 (0.0-1.0) mg/dL Direct Bilirubin 0.5 (0.0-0.5) mg/dL AST 23 (5-31) U/L ALT 12 (0-31) U/L Alkaline Phosphatase 75 (39-117) U/L Troponin I High Sens < 2.7 (<3.5-17.0) ng/L B-Natriuretic Peptide 17 (<100) pg/mL Total Protein 7.3 (6.5-8.0) g/dL Albumin 3.9 (3.5-5.0) g/dL Influenza Type A (PCR) NEGATIVE (Negative) Influenza Type B (PCR) NEGATIVE (Negative) RSV RNA Qual (PCR) NEGATIVE (Negative) SARS-CoV-2 RNA (RT-PCR) NEGATIVE (Negative) Discharge Plan Discharge Clinical Impression: COPD (chronic obstructive pulmonary disease) Prescriptions: No Action ipratropium-albuterol 0.5 mg-3 mg(2.5 mg base)/3 mL solution for nebulization 3 ml inhalation BID PRN (Reason: wheezing) Qty: 180 2RF buspirone 10 mg tablet 15 mg PO BID 30 Days Qty: 90 2RF quetiapine [Seroquel] 25 mg tablet 25 mg PO BEDTIME Qty: 90 3RF valacyclovir 500 mg tablet 500 mg PO DAILY Qty: 90 3RF lorazepam 0.5 mg tablet 0.5 mg PO DAILY PRN (Reason: anxiety) 30 Days Qty: 30 0RF azithromycin 500 mg tablet 500 mg PO .Friday 30 Days Qty: 14 12RF metoprolol tartrate 25 mg tablet 25 mg PO DAILY Qty: 90 0RF Eliquis DVT-PE Treat 30D Start 5 mg (74 tabs) tablets,dose pack See Rx Instructions PO PER PKG DIR Qty: 74 0RF Rx Instructions: PO PER PKG DIR cetirizine 10 mg tablet 10 mg PO DAILY PRN (Reason: Allergic Reaction) azelastine 137 mcg (0.1 %) aerosol,spray 1 spray intranasal .daily x1 Rx Instructions: administer into each nostril albuterol sulfate 2.5 mg /3 mL (0.083 %) solution for nebulization 2.5 mg inhalation Q4-6H PRN (Reason: Wheezing) rifampin 300 mg capsule 600 mg PO .Friday 30 Days Qty: 14 12RF prednisone 5 mg tablet 5 mg PO DIRECTED Qty: 50 0RF Rx Instructions: Take 2 tabs daily for 3 weeks, then take 1 tab daily for 1 week ethambutol 400 mg tablet 1 g PO 3XW Qty: 35 12RF escitalopram oxalate 10 mg tablet 20 mg PO DAILY albuterol sulfate 90 mcg/actuation HFA aerosol inhaler 2 puff inhalation QID 30 Days Qty: 8.5 4RF montelukast [Singulair] 10 mg tablet 10 mg PO DAILY Qty: 30 6RF Trelegy Ellipta 200-62.5-25 mcg blister with device 1 inh inhalation DAILY Qty: 60 6RF Dupixent Pen 300 mg/2 mL pen injector 300 mg subcut Q2W Qty: 4 12RF Rx Instructions: Initial dose 600 mg, then 300 mg every 2 weeks subcutaneously Print Language: Jamaican
--- OUTSIDE RECORDS SUMMARY | 2024-12-29 17:40 | XMS_ITS | Clinical Summary ---
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 The [facility] Department of Internal Medicine recommends using National [...] Sandoval should beclassified as having osteoporosis. The [facility] Department of Internal Medicine recommendsusing National Osteoporosis [...] AM EDT Narrative 06/27/2023 6:[address] [facility] Diagnostic Imaging Department [address] [place] [address] Patient: ??CAROLE SANDOVAL ?/Age/Sex: 1950 - Unit#: ??[id number] ? Location/Status: ??SPDICATLS/REG CLI ? Mnemonic/Ordering Site: [...] Procedure Note Eli Dowling MD - 10/14/2023 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
== END 2024-12-29 16:55 | disposition left against medical advice (07) ==
PROVIDERS: Physician Assistant; Emergency Provider Emergency Medicine Emergency Medical Services; PCP Family Medicine
DX: J44.9 Chronic obstructive pulmonary disease, unspecified (principal); R06.02 Shortness of breath; G61.0 Guillain-Barre syndrome; Z79.899 Other long term (current) drug therapy; Z03.818 Encounter for observation for suspected exposure to other biological agents ruled out
CPT/HCPCS: 0241U; 36415; 71046; 80048; 80076; 83735; 83880; 84484; 85025; 85610; 93005; 94640; 99284; 99285

== ENCOUNTER → 2024-12-29 12:39 | Outpatient (BNV) | payer MEDICARE, SELFPAY | PROVIDERS: Emergency Provider Emergency Medicine Emergency Medical Services; PCP Family Medicine; Visit Provider Internal Medicine | DX: R00.0 Tachycardia, unspecified (principal); I51.7 Cardiomegaly | CPT/HCPCS: 93010 ==

== ENCOUNTER → 2024-12-29 12:39 | Outpatient (BNV) | payer MEDICARE, SELFPAY | PROVIDERS: PCP Family Medicine; Visit Provider Radiology Diagnostic Radiology | DX: J44.9 Chronic obstructive pulmonary disease, unspecified (principal) | CPT/HCPCS: 71046 ==

== ENCOUNTER 2025-02-02 11:37 | Outpatient (REF) | payer MEDICARE, SELFPAY ==
--- OUTSIDE RECORDS SUMMARY | 2025-02-02 12:31 | XMS_ITS | Clinical Summary ---
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; COMMENT: 2016 Covid-19 12/21/2020 DX:COVID-19; COM MENT: 10/30 Gallstones DX:Gallstones COPD (chronic obstructive pu lmonary disease) ([facility]/HCC V24, [facility]/HCC V28) DX:COPD (chronic o bstructive pulmonary disease) ([facility]) Family History Medical History Relation Name Comments Prostate cancer Father mets to the bone Dementia Mother Other: cyst of brain Son Lung cancer Neg Hx Relation Name Status Comments Brother Father Mother Son Alive Social History Tobacco Use Types Packs/Day Years Used Date Smoking Tobacco: Every Day Cigarettes 0.5 52.4 Started: 09/08/1972 Smokeless Tobacco: Never Alcohol Use [...] - Risk 60-74 years 1-dose series) 2012 Colorectal Cancer Screening: Colonoscopy 08/17/2022 Depression Screening 08/17/2022 Falls Risk Assessment 08/17/2022 Hepatitis C Screening 08/17/2022 Social Influencers of Health Screening 08/17/2022 COVID-19 Vaccine ( season) 2024 01/29/2022, 06/28/2021, 06/09/2021, Additional history exists Influenza Vaccine (Season Ended) 2025 Breast Cancer Screening 08/20/2025 08/20/2023 Osteoporosis Screening (Bone Density Screening) 08/20/2033 08/20/2023 Lung Cancer Screening (Low Dose CT) Discontinued 06/27/2023, 05/20/2022 HIB Vaccines Aged Out No longer eligi [...] mammographic evidence of malignancy. BIRADS 1-Negative; N. us Elyssa García DO IMG XR PROCEDURES Final [...] be classified as having osteoporosis. The [facility] Department of Internal Medicine recommends using [...] should beclassified as having osteoporosis. The [facility] Department of Internal Medicine recommendsusing National [...] or over-estimation of fracture risk by FRAX. us Elyssa García DO IMG DXA PROCEDURES Final Result * CT LUNG SCREENING LOW DOSE (06/27/2023 6:12 AM EDT) Anatomical Region Laterality Modality Computed Tomogra phy 06/25/2023 11:1 0 AM EDT Narrative 06/27/2023 6:12 AM EDT [facility] Diagnostic Imaging Department [address] [place] [address] Patient: ??CAROLE SANDOVAL ?/Age/Sex: 1950 - 72 - F Unit#: ??[id number] ? Location/Status: ??SPDICATLS/REG CLI ? 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
[2025-02-02 14:23] LABS: MANUAL DIFF FLAG NO
[2025-02-02 14:39] LABS: Basophils Absolute Auto 0.1 X10*3/uL (0.0-0.2); Basophils Percent Auto 0.6 % (0-2); Eosinophils Absolute Auto 0.3 X10*3/uL (0.0-0.4); Eosinophils Percent Auto 2.9 % (0-4); Hematocrit 41.1 % (37.0-47.0); Hemoglobin 13.6 g/dl (12.0-16.0); Imm Gran Abs Auto 0.06 X10*3/uL (0.00-0.03); Imm Gran Pct Auto 0.6 % (0.0-0.4); Lymphocytes Percent Auto 9.4 % (20-40); Mean Corpuscular HGB Conc 33.1 g/dl (31.0-35.0); Mean Corpuscular Hemoglobin 31.9 pg (27.0-33.0); Mean Corpuscular Volume 96.5 fL (80.0-98.0); Mean Platelet Volume 9.7 fL (9.4-12.3); Monocytes Absolute Auto 0.7 X10*3/uL (0.1-1.2); Neutrophils Absolute Auto 8.3 x10*3/uL (2.0-8.3); Neutrophils Percent Auto 79.5 % (45-73); Platelet Count 583 X10*3/uL (160-400); Red Blood Count 4.26 X10*6/uL (4.20-5.50); Red Cell Distribution Width 12.9 % (11.0-16.0); White Blood Count 10.4 X10*3/uL (4.8-10.8)
[2025-02-02 15:13] LABS: Alanine Aminotransferase < 6 U/L (0-31); Albumin Level 3.5 g/dL (3.5-5.0); Alkaline Phosphatase 55 U/L (39-117); Anion Gap 14 (12-20); Aspartate Amino Transferase 14 U/L (5-31); Bilirubin Total 0.3 mg/dL (0.0-1.0); Blood Urea Nitrogen 11 mg/dL (9-16); Calcium 9.2 mg/dL (8.4-10.2); Carbon Dioxide 25 mmol/L (22-29); Chloride 107 mmol/L (96-108); Cholesterol 188 mg/dL (<200); Estimated Glomerular Filt Rate > 60; Glucose Fasting 105 mg/dL (60-99); HDL Cholesterol 32 mg/dL (>40); LDL Cholesterol Calculated 131 mg/dL (<100); Potassium 3.7 mmol/L (3.3-5.1); Sodium 142 mmol/L (135-145); TSH reflex Free T4 1.46 uIU/mL (0.32-4.0); Total Protein 6.8 g/dL (6.5-8.0); Triglycerides 128 mg/dL (<150)
== END 2025-02-02 11:38 | disposition home or self-care (01) ==
LOC: HO.WFDLDS 11:37
PROVIDERS: Visit Provider Family Medicine
DX: Z00.00 Encounter for general adult medical examination without abnormal findings (principal); Z13.6 Encounter for screening for cardiovascular disorders
CPT/HCPCS: 36415; 80053; 80061; 84443; 85025

== ENCOUNTER 2025-02-04 15:30 | Outpatient (AMB) | payer MEDICARE, SELFPAY ==
--- OUTSIDE RECORDS SUMMARY | 2025-02-04 15:34 | XMS_ITS | Clinical Summary ---
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 The [facility] Department of Internal Medicine recommends using National [...] [place]oval should beclassified as having osteoporosis. The [facility] Department of Internal Medicine recommendsusing National Osteoporosis [...] EDT Narrative 06/27/2023 6:[address] [facility] Diagnostic Imaging Department [address] [place] [address] Patient: ??CAROLE SANDOVAL ?/Age/Sex: 1950 - 72 - F Unit#: ??[id number] ? Location/Status: ??SPDICATLS/REG CLI ? Mnemonic/Ordering Site: [...] Note Eli Dowling MD - 10/14/2023 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
--- NOTE | 2025-02-04 15:40 | MHC.PC.OV ---
Vital Signs 02/04/25 15:45 Height 5 ft 5 in Weight 87 lb 4 oz BMI 14.5 BP 128/70 Blood Pressure Location Lt brachial Position Sitting Respiration 18 Pulse 93 Pulse Source Pulse Oximeter Temp 97.5 F Temp Source Oral Pulse Oximetry (%) 94 Oxygen Delivery Method Room Air Intake Visit Reasons: Extended exam with f/u labs and health maint. Intake Note: patient is scheduled for follow-up to review labs and health maint patient heart rate 168-184 need medication adjustment. Patient states that she haven't had appetite since she stop take eliquis. Allergies banana Allergy (Verified 02/04/25 15:42) headaches chocolate Allergy (Verified 02/04/25 15:42) hives codeine Allergy (Verified 02/04/25 15:42) runny nose Influenza Virus Vaccines Allergy (Verified 02/04/25 15:42) guillain-barre latex Allergy (Verified 02/04/25 15:42) itching, rash sertraline [From Zoloft] Allergy (Verified 02/04/25 15:42) Dizziness soy Allergy (Verified 02/04/25 15:42) swelling/edema beef Allergy (Uncoded 02/04/25 15:42) headaches cucumber Allergy (Uncoded 02/04/25 15:42) rhinitis demerol Allergy (Uncoded 02/04/25 15:42) unknown pork Allergy (Uncoded 02/04/25 15:42) intolerant Medication List - Last Reconciled 02/04/25 by Yusuf Motley MD albuterol sulfate 2.5 mg inhalation Q4-6H PRN albuterol sulfate 90 mcg/actuation 2 puffs inhalation QID 30 days azelastine 1 spray intranasal .daily x1 azithromycin 500 mg PO .Friday 30 days buspirone 15 mg (1.5 x 10 mg) PO BID 30 days cetirizine 10 mg PO DAILY PRN dupilumab (Dupixent) 300 mg (2 mL) subcut Q2W escitalopram oxalate 20 mg PO DAILY ethambutol 1 g (2.5 x 400 mg) PO 3XW sccredzvgyw-jzunzbmwv-cospqaan 200-62.5-25 mcg (Trelegy Ellipta) 1 inh inhalation DAILY ipratropium-albuterol 0.5 mg-3 mg(2.5 mg base)/3 mL 3 mL inhalation BID PRN levofloxacin 750 mg PO Q24H 10 days lorazepam 0.5 mg PO DAILY PRN 30 days metoprolol tartrate 25 mg PO DAILY montelukast (Singulair) 10 mg PO DAILY prednisone 30 mg (3 x 10 mg) PO DAILY quetiapine (Seroquel) 25 mg PO BEDTIME rifampin 600 mg (2 x 300 mg) PO .Friday 30 days rivaroxaban (Xarelto) 20 mg PO DAILY valacyclovir 500 mg PO DAILY Tobacco use date assessed: 02/04/25 Fall risk assessment: No Falls in past year Dental Screening Dental Screen Date: 02/04/25 Did you have a dental visit in the last 12 months?: No Did you have a dental problem in the last 6 months where you did not have access to dental care?: No Was dental information given to patient?: No HPI Extended exam with f/u labs and health maint. HPI Details 74 y/o female presents for an extended exam with f/u labs and health maint. Labs drawn 02/02/25. Reviewed labs with pt. Plt count elevated at 583. Fasting glucose 105. Triglycerides 128. TC 188. LDL 131. HDL 32. Reports appetite suppression since she had stopped taking her eliquis. Had been taking eliquis for pulmonary embolism. She reports she feels her current metoprolol dose has not been helping as much with tachycardia. 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 Osteoporosis Multinodular thyroid History of cervical cancer Nicotine dependence, cigarettes, uncomplicated History of right breast cancer COPD (chronic obstructive pulmonary disease) Surgical History (Updated 11/03/24 @ 10:51 by Rashmi Sommer) History of partial mastectomy of right breast History of bronchoscopy History of hysterectomy History of breast augmentation History of appendectomy Family History (System 11/03/24 @ 10:51 by Rashmi Sommer) Father Prostate CA Social History (System 11/03/24 @ 10:51 by Rashmi Sommer) Household Members: None Housing: House Patient Tobacco Use Status: Current everyday Tobacco user Cigarette Packs Per Day: 0.5 Cigarettes Per Day: 5 Years Smoked: 35 e-Cigarette/Vaping Use: Never Used service: No Current occupational status: employed and retired Cognitive needs: No Hearing needs: No Vision needs: Yes Questionnaire PHQ-9 Over the last 2 weeks, how often have you been bothered by any of the following problems? 1. Little interest or pleasure in doing things: not at all 2. Feeling down, depressed, or hopeless: not at all 3. Trouble falling or staying asleep, or sleeping too much: several days 4. Feeling tired or having little energy: several days 5. Poor appetite or overeating: several days 6. Feeling bad about yourself - or that you are a failure or have let yourself or your family down: not at all 7. Trouble concentrating on things, such as reading the newspaper or watching television: not at all 8. Moving or speaking so slowly that other people could have noticed. Or the opposite - being so fidgety or restless that you have been moving around a lot more than usual: not at all 9. Thoughts that you would be better off or of hurting yourself in some way: not at all Total score: 3 Depression Screening Interpretation: Negative Depression Screening Done: Yes [id number] - PHQ-9 Billing: Yes Source: Developed by Drs. Diaz Elizabeth, Nicolsaa Nogueira, Kelton Andersen and colleagues, with an educational izabela from [employer]. Thrive Questionnaire Date Thrive assessed: 02/04/25 I am a: Patient What is your living situation today?: I have a steady place to live Within the past 12 months, did the food you bought not last and you didn't have the money to get more?: Never true Within the past 12 months, did you worry whether your food would run out before you got money to buy more?: Never true Do you have trouble paying for medicines?: No Do you have trouble getting transportation to medical appointments?: No Do you have trouble paying your heating and electricity bill?: No Do you have trouble taking care of your child, family member or friend?: No Do you have trouble with day-to-day activities such as bathing, preparing meals, shopping, managing finances, etc.?: No Are you currently unemployed and looking for a job?: No Are you interested in more education?: No Please select the resources that you would like help with: None Currently or been in a relationship where the following occur: No concerns reported THRIVE Score: 0 AUDIT C Alcohol Use Questionnaire (AUDIT-C) 1. How often do you have a drink containing alcohol?: Monthly or less 2. How many drinks containing alcohol do you have on a typical day when you are drinking?: 1 or 2 3. How often do you have six or more drinks on one occasion?: Never Total Score: 1 LAWRENCE-7 AMB Questionnaire LAWRENCE-7 Date LAWRENCE - 7 assessed: 02/04/25 Feeling nervous, anxious, or on edge: 3 = Nearly every day Not being able to stop or control worryin = Several days Worrying too much about different things: 1 = Several days Trouble relaxin = Several days Being so restless that it is hard to sit still: 1 = Several days Becoming easily annoyed or irritable: 0 = Not at all Feeling afraid as if something awful might happen: 0 = Not at all Total LAWRENCE-7 score (0-4 normal; 5-9 mild; 10-14 moderate; 15-21 severe): 7 Source: Developed by Drs. Diaz Elizabeth, Nicolasa Nogueira, Kelton Andersen and colleagues, with an educational izabela from [employer]. LAWRENCE-7 Assessment Billing LAWRENCE-7 Assessment Tool: LAWRENCE-7 Assessment 78698 Review of Systems Const Denies chills, Denies fatigue, Denies fever(s), Denies headache(s) and Denies weakness Eyes Denies change in vision ENT Denies dizziness, Denies headache(s), Denies hearing loss, Denies nasal congestion, Denies sinus pain, Denies sinus pressure and Denies sore throat Card Denies chest pain, Denies lightheadedness, Denies dyspnea and Denies other (palpitations) Resp Denies cough, Denies dyspnea and Denies wheezing GI Denies abdominal pain, Denies melena, Denies hematochezia, Denies change in bowel habits, Denies dyspepsia and Denies nausea Denies hematuria and Denies dysuria Musc Denies abnormal gait, Denies myalgias, Denies arthralgias, Denies numbness and Denies tingling Skin/Breast Denies rash, Denies unusual bruising and Denies wounds Neuro Denies abnormal gait, Denies dizziness, Denies headache(s), Denies memory loss, Denies numbness, Denies Sensory deficit (Neuro), Denies tingling and Denies weakness Psych Denies anxiety, Denies depression and Denies memory loss Endo Denies cold intolerance, Denies fatigue, Denies heat intolerance, Denies polydipsia and Denies polyuria Estuardo/Lymph Denies easy bleeding and Denies easy bruising Aller/Immun Denies wheezing Physical exam (Primary Care) Vital Signs: Last Vital Signs Temp 97.5 F 02/04/25 15:45 Pulse 93 02/04/25 15:45 Resp 18 02/04/25 15:45 BP 128/70 02/04/25 15:45 Pulse Ox 94 02/04/25 15:45 Oxygen Delivery Method Room Air 02/04/25 15:45 BMI result Body Mass Index 14.5 Tobacco/Smoking Status: Tobacco use Status Tobacco use date assessed 02/04/25 02/04/25 15:51 Patient Tobacco Use Status Current everyday Tobacco 02/04/25 15:40 e-Cigarette/Vaping Use Never Used 02/04/25 15:40 PHQ-9: PHQ-9 Score PHQ-9: Total score 3 02/04/25 15:52 Depression Screening Interpretation: Negative Thrive Assessment: Date of Thrive Assessment Date Thrive assessed 02/04/25 02/04/25 15:51 Currently or been in a relationship where the following occur: No concerns reported Const General: no acute distress, well developed, alert and awake Nutritional Appearance: underweight Orientation/consciousness: patient oriented x3 HENMT Head: Yes normocephalic and Yes atraumatic Ears: hearing grossly normal bilaterally and TM's normal bilaterally General nose exam: Normal external nose present and Normal nares present Mouth: Normal oral and palatal mucosa present and moist mucous membranes Teeth and gingiva: dentition normal Throat: Yes posterior oropharynx normal Eyes General: appearance normal, both eyes and all related structures Pupils: Equal, round and reactive pupils present and Pupil accommodation reflex normal EOM: EOMs intact bilaterally Neck Neck: Yes normal visual inspection, Yes no lymphadenopathy and Yes trachea midline Thyroid: Thyroid normal Carotids: no bruits Lymphatic: no lymphadenopathy noted Chest Chest palpation & inspection: normal inspection of the chest Resp Effort & Inspection: normal respiratory effort Auscultation: clear to auscultation bilaterally Cardio Rate: regular rate Rhythm: regular rhythm Heart sounds: S1 normal heart sound present, S2 normal heart sound present, no gallops, no murmurs and no rubs Bruits: no abdominal aortic bruits and no carotid bruits GI Palpation (GI): No Abdominal aortic bruit present, Soft to palpation, nontender, No hepatosplenomegaly present and No Rebound tenderness present Auscultation: normal bowel sounds General: Yes no CVA tenderness Back/Spine/Pelvis Back: no CVA tenderness Cervical Spine: cervical ROM normal and No Cervical spine tenderness Thoracic/Lumbar Spine: thoraco-lumbar ROM normal, No pain with thoraco-lumbar ROM, No thoracic spinal tenderness and No lumbar spinal tenderness Skin Lesions: no lesions Rashes: no rashes Trauma: no lacerations or abrasions Wounds: no wounds Nails: normal Neuro General: patient oriented x3 Cranial nerves: Yes Equal, round and reactive pupils present Cognition (Neuro): normal cognition Gait exam (Neuro): Normal gait present Motor exam (neuro): 5/5 motor strength present throughout Sensory Exam: No Sensory deficit (Neuro) Deep tendon reflexes (DTR's): Right patellar reflex intensity grade: 2+ and Left patellar reflex intensity grade: 2+ Extrem General: Yes normal to inspection and No edema Psych Appearance: grossly normal Affect: normal affect Attitude: cooperative Thought process: Normal thought process present Coding Level of Care Code Est Pt Level 4 (48608) Diagnoses Pulmonary embolism I26.99 Asthma-COPD overlap syndrome J44.89 Underweight R63.6 Tachycardia R00.0 Appetite loss R63.0 Screening for breast cancer Z12.39 Screening for colon cancer Z12.11 Screening for osteoporosis Z13.820 Anxiety F41.9 Adult general medical exam Z00.00 Additional Codes LAWRENCE-7 Assessment Billing - LAWRENCE-7 Assessment Tool: LAWRENCE-7 Assessment 78401 ([id number]) PHQ-9 - 75442 - PHQ-9 Billing: Yes ([id number]) Assessment & Plan Assessment & Plan (1) Pulmonary embolism: Code(s): I26.99 - Other pulmonary embolism without acute cor pulmonale Category: Medical Plan: Patient?with?history?of?COPD?and?off?the?history?lung?cancer?and?breast?cancer?now?with?recent?diagnosis?of?PE?at[facility]. I?do?have?records?request?these She?was?started?on?Eliquis?and?this?has?been?switched?to?rivaroxaban?as?she?got?the?Eliquis?was?causing?appetite?suppression.??No?change?to?her?appetite?has?occurred. Unclear?underlying?cause?for?blood?clot.? Patient?denies?any?blood?clots?in?legs?during?workup?at?[facility]. Given?her?history?cancer?and?unclear?cause?for?PE, as?well?as sudden?loss?of?appetite,?will?refer?to Hematology-Oncology.??She?had?[place]?regarding?spiculated?lung?mass. (2) Asthma-COPD overlap syndrome: Code(s): J44.89 - Other specified chronic obstructive pulmonary disease Category: Medical Plan: Some?increased?shortness?of?breath?though?this?is?likely?secondary?to?recent?diagnosis?of?PE Continue?inhaled?medications Follow-up?with??[facility]?as?recommended (3) Underweight: Code(s): R63.6 - Underweight Category: Medical Plan: Severely underweight?and patient?has?lost?more?weight.??Her?appetite?is?very?poor We?discussed?her?use?a?protein?shake?each?day. She?wants?to?use?Megace?and?we?will?try?this Risks/benefits?were?discussed (4) Tachycardia: Code(s): R00.0 - Tachycardia, unspecified Category: Medical Plan: Patient?frequently?notes?very?high?heart?rates Recommended?she?increase?her?hydration Will?adjust?metoprolol Monitor?blood?pressure?and?heart?rate?at?home?and?call?for?any?problems (5) Appetite loss: Code(s): R63.0 - Anorexia Category: Medical Plan: As?above (6) Screening for breast cancer: Code(s): Z12.39 - Encounter for other screening for malignant neoplasm of breast Category: Medical Plan: Patient?gets?mammograms?with?[facility]?and?managed?by?her?channel development manager Up-to-date (7) Screening for colon cancer: Code(s): Z12.11 - Encounter for screening for malignant neoplasm of colon Category: Medical Plan: Recent FIT test was?normal Up-to-date (8) Screening for osteoporosis: Code(s): Z13.820 - Encounter for screening for osteoporosis Category: Medical Plan: Patient?notes?that?she?will?be?due?for?next?bone?density?test?in?about?6?months.??This?is?managed?by?her?channel development manager She?notes?that?she?has?osteoporosis Follow-up?with?channel development manager?as?recommended (9) Anxiety: Code(s): F41.9 - Anxiety disorder, unspecified Category: Medical Plan: Patient?has?a?psych?med?provider?and?she?says?she?is?doing?rather?well?on?escitalopram?and?buspirone?as?prescribed Continue?medications?as?prescribed?and?follow-up?with?you?psych?med?provider (10) Adult general medical exam: Code(s): Z00.00 - Encounter for general adult medical examination without abnormal findings Category: Medical Plan: 74-year-old?female?presents?for?an?extended?exam Orders: Orders Complete Blood Count Auto Diff Today R79.89 - Other specified abnormal findings of blood chemistry, Z00.00 - Encounter for general adult medical examination without abnormal findings Comprehensive [place]. Panel Fast Today R63.0 - Anorexia, Z00.00 - Encounter for general adult medical examination without abnormal findings UA CC w/rflx Micro + Cult Today R63.0 - Anorexia, Z00.00 - Encounter for general adult medical examination without abnormal findings Vitamin B12 and Folate Today E53.8 - Deficiency of other specified B group vitamins, R63.6 - Underweight Vitamin D 25-OH Total Today E55.9 - Vitamin D deficiency, unspecified, R63.6 - Underweight Referrals Hematology & Oncology Referral C50.919 - Malignant neoplasm of unspecified site of unspecified female breast, I26.99 - Other pulmonary embolism without acute cor pulmonale, R63.0 - Anorexia, R79.89 - Other specified abnormal findings of blood chemistry, R91.8 - Other nonspecific abnormal finding of lung field Medications: New megestrol 20 mg PO BID 30 days 60 tabs 0RF metoprolol succinate ER 50 mg PO BID 30 days 60 tabs 2RF
[2025-02-04 15:45] VITALS: BP 128/70; PULSE 93; RESP 18; TEMP 36.4; O2SAT 94; BMI 14.5
== END 2025-02-04 16:35 | disposition home or self-care (01) ==
LOC: HO.HMCFM 15:31
PROVIDERS: PCP Family Medicine; Visit Provider Family Medicine
DX: I26.99 Other pulmonary embolism without acute cor pulmonale (principal); J44.89 Other specified chronic obstructive pulmonary disease; R63.6 Underweight; R00.0 Tachycardia, unspecified; R63.0 Anorexia; Z12.39 Encounter for other screening for malignant neoplasm of breast; Z12.11 Encounter for screening for malignant neoplasm of colon; Z13.820 Encounter for screening for osteoporosis; F41.9 Anxiety disorder, unspecified; Z00.00 Encounter for general adult medical examination without abnormal findings

== ENCOUNTER → 2025-02-04 15:30 | Outpatient (BNVA) | payer MEDICARE, SELFPAY | PROVIDERS: PCP Family Medicine; Visit Provider Family Medicine | DX: Z00.00 Encounter for general adult medical examination without abnormal findings (principal); I26.99 Other pulmonary embolism without acute cor pulmonale; J44.89 Other specified chronic obstructive pulmonary disease; R63.6 Underweight; R00.0 Tachycardia, unspecified; R63.0 Anorexia; Z85.118 Personal history of other malignant neoplasm of bronchus and lung; Z85.3 Personal history of malignant neoplasm of breast; Z79.01 Long term (current) use of anticoagulants; Z13.31 Encounter for screening for depression; Z13.30 Encounter for screening examination for mental health and behavioral disorders, unspecified | CPT/HCPCS: 96127; 99212 ==

== ENCOUNTER 2025-02-11 18:01 | Emergency (ER) | payer MEDICARE, SELFPAY ==
--- NOTE | ~2025-02-11 | XR_ITS ---
CLINICAL HISTORY: cough sob 2 view chest x-ray Comparison: CR/SR - XR CHEST 2V - 12/29/24 13:15 EDT Findings: Normal size heart. Atherosclerotic vascular disease of aortic arch. Bilateral hyperinflation and chronic interstitial changes consistent with emphysema. Stable left apical/left upper lobe cavitary lesion. Interval opacities in the right lung apex. Mild blunting of right costophrenic angle may represent small pleural effusion. No pneumothorax. No acute fracture. IMPRESSION: 1. Patchy opacities in the right lung apex may represent pneumonia. 2. Mild blunting right costophrenic angle likely small pleural effusion. 3. Stable cavitary lesion left lung apex. This document has been electronically signed by: Azra Chu MD on 02/11/2025 19:03:04
[2025-02-11 18:05] VITALS: BP 107/59; PULSE 80; O2SAT 97
[2025-02-11 18:09] VITALS: BP 101/61; PULSE 74; RESP 20; TEMP 36.6; O2SAT 98; BMI 14.3
--- NOTE | 2025-02-11 18:15 | ECG_ITS ---
Test Reason : SOB Blood Pressure : */* mmHG Vent. Rate : 73 BPM Atrial Rate : 73 BPM P-R Int : 144 ms QRS Dur : 74 ms QT Int : 414 ms P-R-T Axes : 75 76 72 degrees QTcB Int : 456 ms Normal sinus rhythm Normal ECG When compared with ECG of 29-Dec-2024 13:34, No significant change was found Referred By: Generic ED Physician Electronically Signed By: RENE RODRIGUES
--- OUTSIDE RECORDS SUMMARY | 2025-02-11 19:06 | XMS_ITS | Clinical Summary ---
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 [facility] Department of Internal Medicine recommends using [...] Sandoval should beclassified as having osteoporosis. The [facility] Department of Internal Medicine recommendsusing National [...] AM EDT Narrative 06/27/2023 6:12 AM EDT [facility] Diagnostic Imaging Department [address] [place] [address] Patient: ??CAROLE SANDOVAL ?/Age/Sex: 1950 - 72 - F Unit#: ??[id number] ? Location/Status: ??SPDICATLS/REG CLI ? 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
--- NOTE | 2025-02-11 19:18 | PC.NURSE ---
assumed care of pt. Pt sitting up, labs being drawn. Respirations even and unlabored.
[2025-02-11 19:24] LABS: Basophils Absolute Auto 0.1 X10*3/uL (0.0-0.2); Basophils Percent Auto 0.9 % (0-2); Eosinophils Absolute Auto 0.2 X10*3/uL (0.0-0.4); Hematocrit 38.4 % (37.0-47.0); Hemoglobin 12.9 g/dl (12.0-16.0); Imm Gran Abs Auto 0.02 X10*3/uL (0.00-0.03); Imm Gran Pct Auto 0.2 % (0.0-0.4); Lymphocytes Absolute Auto 1.4 X10*3/uL (1.2-4.9); Lymphocytes Percent Auto 17.1 % (20-40); MANUAL DIFF FLAG NO; Mean Corpuscular HGB Conc 33.6 g/dl (31.0-35.0); Mean Corpuscular Hemoglobin 31.8 pg (27.0-33.0); Mean Corpuscular Volume 94.6 fL (80.0-98.0); Mean Platelet Volume 8.7 fL (9.4-12.3); Monocytes Absolute Auto 0.6 X10*3/uL (0.1-1.2); Monocytes Percent Auto 6.8 % (2-11); Neutrophils Absolute Auto 5.9 x10*3/uL (2.0-8.3); Platelet Count 531 X10*3/uL (160-400); Red Blood Count 4.06 X10*6/uL (4.20-5.50); Red Cell Distribution Width 13.1 % (11.0-16.0); White Blood Count 8.1 X10*3/uL (4.8-10.8)
[2025-02-11 19:31] VITALS: BP 97/62; PULSE 74; RESP 16; TEMP 36.9; O2SAT 96
--- NOTE | 2025-02-11 19:32 | MHC.EDTECH ---
Patient was biba from home ,vitals taken ,ekg done and was read by Provider ,blood drawn ,rsv/covid swab collected all sent to lab .Call arevalo within Pt reach .
[2025-02-11 19:41] LABS: Alanine Aminotransferase 8 U/L (0-31); Albumin Level 3.5 g/dL (3.5-5.0); Alkaline Phosphatase 60 U/L (39-117); Anion Gap 11 (12-20); Aspartate Amino Transferase 17 U/L (5-31); Bilirubin Total 0.6 mg/dL (0.0-1.0); Blood Urea Nitrogen 16 mg/dL (9-16); Calcium 9.2 mg/dL (8.4-10.2); Carbon Dioxide 22 mmol/L (22-29); Chloride 111 mmol/L (96-108); Creatinine Clr Calc Pharmacy 46.7; Estimated Glomerular Filt Rate > 60; Glucose Random 101 mg/dL (60-115); Magnesium 2.1 mg/dL (1.6-2.6); Potassium 4.2 mmol/L (3.3-5.1); Sodium 140 mmol/L (135-145); Total Protein 6.4 g/dL (6.5-8.0)
--- NOTE | 2025-02-11 19:57 | ED.GENADULT ---
HPI - General Adult General Chief complaint: Upper Respiratory Symptoms Stated complaint: DIFF BREATHING, ANXIOUS PER EMS Time Seen by Provider: 02/11/25 18:13 Source: patient Limitations: no limitations History of Present Illness ED Provider: Nimisha Plunkett PA-C HPI narrative: 74-year-old female with a history of anxiety, COPD/asthma overlap, current treatment for mycobacterium avium complex, ongoing tobacco abuse, PE on Xarelto who presents with shortness of breath. Patient states she went out for a drive, she suddenly felt short of breath. Now that the patient is in the emergency department, she admits that she was feeling quite anxious, in his much improved. Patient did not use her updraft at home prior to arrival. She is now eager to be discharged, despite her workup not being yet completed. Denies recent cough or cold symptoms, fever, chills, chest pain, shortness of breath at this time. Related Data Home Medications ?Medication ?Instructions ?Recorded ?Confirmed albuterol sulfate 2.5 mg/3 mL 2.5 mg inhalation Q4-6H PRN 12/16/23 02/04/25 (0.083 %) solution for nebulization Wheezing azelastine 137 mcg (0.1 %) nasal 1 spray intranasal .daily x1 12/16/23 02/04/25 spray cetirizine 10 mg tablet 10 mg PO DAILY PRN Allergic 12/16/23 02/04/25 Reaction escitalopram oxalate 10 mg tablet 20 mg PO DAILY 07/28/24 02/04/25 Previous Rx's ?Medication ?Instructions ?Recorded ipratropium 0.5 mg-albuterol 3 mg 3 ml inhalation BID PRN wheezing 02/25/24 (2.5 mg base)/3 mL nebulization #180 mL soln ethambutol 400 mg tablet 1 g (2.5 x 400 mg) PO 3XW #35 tabs 06/17/24 buspirone 10 mg tablet 15 mg (1.5 x 10 mg) PO BID 30 days 06/20/24 #90 tabs quetiapine 25 mg tablet (Seroquel) 25 mg PO BEDTIME #90 tabs 07/20/24 albuterol sulfate 90 mcg/actuation 2 puff inhalation QID 30 days #8.5 07/28/24 aerosol inhaler grams valacyclovir 500 mg tablet 500 mg PO DAILY #90 tabs 08/13/24 rifampin 300 mg capsule 600 mg (2 x 300 mg) PO .COMPLEX 30 08/27/24 days #14 caps fluticasone fur. 200 mcg-umeclid 1 inh inhalation DAILY #60 ea 09/23/24 62.5 mcg-vilant 25 mcg inhalat.powder (Trelegy Ellipta) montelukast 10 mg tablet 10 mg PO DAILY #30 tabs 09/23/24 (Singulair) azithromycin 500 mg tablet 500 mg PO .COMPLEX 30 days #14 tabs 11/11/24 dupilumab 300 mg/2 mL subcutaneous 300 mg (2 mL) subcut Q2W #4 mL 11/16/24 pen injector (Dupixent) metoprolol tartrate 25 mg tablet 25 mg PO DAILY #90 tabs 12/20/24 prednisone 10 mg tablet 30 mg (3 x 10 mg) PO DAILY #30 tabs 12/31/24 lorazepam 0.5 mg tablet 0.5 mg PO DAILY PRN anxiety 30 01/03/25 days #30 tabs rivaroxaban 20 mg tablet (Xarelto) 20 mg PO DAILY #30 tabs 01/26/25 megestrol 20 mg tablet 20 mg PO BID 30 days #60 tabs 02/04/25 metoprolol succinate 50 mg 50 mg PO BID 30 days #60 tabs 02/04/25 tablet,extended release 24 hr levofloxacin 750 mg tablet 750 mg PO Q24H 7 days #7 tabs 02/22/25 Allergies Allergy/AdvReac Type Severity Reaction Status Date / Time banana Allergy headaches Verified 02/22/25 13:28 chocolate Allergy hives Verified 02/22/25 13:28 codeine Allergy runny nose Verified 02/22/25 13:28 Influenza Virus Vaccines Allergy guillain-ba Verified 02/22/25 13:28 rre latex Allergy itching, Verified 02/22/25 13:28 rash sertraline (From Zoloft) Allergy Dizziness Verified 02/22/25 13:28 soy Allergy swelling/ed Verified 02/22/25 13:28 trista beef Allergy headaches Uncoded 02/22/25 13:28 cucumber Allergy rhinitis Uncoded 02/22/25 13:28 demerol Allergy unknown Uncoded 02/22/25 13:28 pork Allergy intolerant Uncoded 02/22/25 13:28 Review of Systems Review of Systems: Yes all other systems are reviewed and are negative Constitutional: Constitutional: Denies fatigue and Denies fever(s) Cardiovascular: Cardiovascular: Denies chest pain and Reports dyspnea Respiratory: Respiratory: Denies cough, Reports dyspnea and Denies wheezing Gastrointestinal: Gastrointestinal: Denies nausea and Denies vomiting Endocrine: Endocrine: Denies fatigue Allergic/Immunologic: Allergic/Immunologic: Denies wheezing [facility] Past Medical History Medical History (Updated 02/22/25 @ 16:04 by Tamika Albarado NP) 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 Osteoporosis Multinodular thyroid History of cervical cancer Nicotine dependence, cigarettes, uncomplicated History of right breast cancer COPD (chronic obstructive pulmonary disease) Surgical History (Updated 11/03/24 @ 10:51 by Rashmi Sommer) History of partial mastectomy of right breast History of bronchoscopy History of hysterectomy History of breast augmentation History of appendectomy Family History Family History (System 11/03/24 @ 10:51 by Rashmi Sommer) Father Prostate CA Social History Social History (System 11/03/24 @ 10:51 by Rashmi Sommer) Household Members: None Housing: House Alcohol intake: current Alcohol intake frequency: holidays/special occasions only Alcohol type: wine Patient Tobacco Use Status: Current everyday Tobacco user Cigarette Packs Per Day: 0.5 Cigarettes Per Day: 5 Years Smoked: 35 e-Cigarette/Vaping Use: Never Used service: No Current occupational status: employed and retired Cognitive needs: No Hearing needs: No Vision needs: Yes Physical Exam ED Vital Signs: Vital Signs - 24 hr 02/11/25 18:09 02/11/25 19:31 Temperature 97.8 F 98.4 F Pulse Rate 74 74 Respiratory Rate 20 16 Blood Pressure 101/61 97/62 Pulse Oximetry 98 96 Oxygen Delivery Method Room Air Room Air BMI result Body Mass Index 14.3 Const Other: Alert, cachectic Orientation/consciousness: patient oriented x3 Resp Other: Nonlabored respirations, lungs clear to auscultation no wheezing Cardio Other: Normal peripheral perfusion Skin Other: Warm dry no rash Neuro General: patient oriented x3, gait normal, no focal motor deficits and CN's II-XI intact bilaterally Psych Other: Cooperative, anxious Medications Administered Discontinued Medications Generic Name Dose Route Start Last Admin Trade Name Zena PRN Reason Stop Dose Admin Amoxicillin/Clavulanate Potassium 875 mg 02/11/25 20:01 02/11/25 20:29 Amoxicillin/Potassium Clav 875 Mg Tablet PO 02/11/25 20:02 875 mg ONCE ONE Administration Medical Decision Making Medical Decision Making [facility] Narrative: 74-year-old female with a history of anxiety, COPD/asthma overlap, current treatment for mycobacterium avium complex, ongoing tobacco abuse, PE on Xarelto who presents with shortness of breath. Patient states she went out for a drive, she suddenly felt short of breath. Now that the patient is in the emergency department, she admits that she was feeling quite anxious, in his much improved. Patient did not use her updraft at home prior to arrival. She is now eager to be discharged, despite her workup not being yet completed. Denies recent cough or cold symptoms, fever, chills, chest pain, shortness of breath at this time. Problem: Complex infection, COPD, ongoing tobacco abuse, PE, anxiety History: Per patient I have considered the following differential diagnoses: COPD exacerbation, pneumonia, viral syndrome, PE, anxiety Plan: I do believe the patient had a panic attack, which brings her to the emergency department. Her assessment was initiated from triage, screening labs, chest x-ray etc. have been ordered. The patient is completely asymptomatic with a benign exam. She is already asking to be discharged. I am asking if she will wait for the chest x-ray to results. I have independently reviewed the following tests: Labs: No leukocytosis, not anemic, no electrolyte abnormality, viral panel negative EKG: Normal sinus rhythm, rate of 73, no ischemic changes no ectopy QTC 456 Chest x-ray: MPRESSION: 1. Patchy opacities in the right lung apex may represent pneumonia. 2. Mild blunting right costophrenic angle likely small pleural effusion. 3. Stable cavitary lesion left lung apex. I explained to the patient that there is concern for a new pneumonia, that she requires additional antibiotic coverage, she understands, she wants to be treated as an outpatient. Lab Data 02/11/25 19:18 02/11/25 19:18 Labs: Lab Results 02/11/25 Range/Units 19:18 WBC 8.1 (4.8-10.8) X10*3/uL RBC 4.06 L (4.20-5.50) X10*6/uL Hgb 12.9 (12.0-16.0) g/dl Hct 38.4 (37.0-47.0) % MCV 94.6 (80.0-98.0) fL MCH 31.8 (27.0-33.0) pg MCHC 33.6 (31.0-35.0) g/dl RDW 13.1 (11.0-16.0) % Plt Count 531 H (160-400) X10*3/uL MPV 8.7 L (9.4-12.3) fL Immature Gran % (Auto) 0.2 (0.0-0.4) % Neut % (Auto) 73.0 (45-73) % Lymph % (Auto) 17.1 L (20-40) % [place] % (Auto) 6.8 (2-11) % Eos % (Auto) 2.0 (0-4) % Baso % (Auto) 0.9 (0-2) % Lymph # (Auto) 1.4 (1.2-4.9) X10*3/uL [place] # (Auto) 0.6 (0.1-1.2) X10*3/uL Eos # (Auto) 0.2 (0.0-0.4) X10*3/uL Baso # (Auto) 0.1 (0.0-0.2) X10*3/uL Abs Immat Gran (auto) 0.02 (0.00-0.03) X10*3/uL Absolute Neuts (auto) 5.9 (2.0-8.3) x10*3/uL Absolute Nucleated RBC 0.000 (0.0-0.012) X10*3/uL Nucleated RBC % (auto) 0.0 (0.0-0.2) /100WBC Sodium 140 (135-145) mmol/L Potassium 4.2 (3.3-5.1) mmol/L Chloride 111 H (96-108) mmol/L Carbon Dioxide 22 (22-29) mmol/L Anion Gap 11 L (12-20) BUN 16 (9-16) mg/dL Creatinine 0.67 (0.5-1.4) mg/dL Estim Creat Clear Calc 46.7 Estimated GFR > 60 Random Glucose 101 (60-115) mg/dL Calcium 9.2 (8.4-10.2) mg/dL Magnesium 2.1 (1.6-2.6) mg/dL Total Bilirubin 0.6 (0.0-1.0) mg/dL AST 17 (5-31) U/L ALT 8 (0-31) U/L Alkaline Phosphatase 60 (39-117) U/L Total Protein 6.4 L (6.5-8.0) g/dL Albumin 3.5 (3.5-5.0) g/dL Influenza Type A (PCR) NEGATIVE (Negative) Influenza Type B (PCR) NEGATIVE (Negative) RSV RNA Qual (PCR) NEGATIVE (Negative) SARS-CoV-2 RNA (RT-PCR) NEGATIVE (Negative) Discharge Plan Discharge Clinical Impression: Pneumonia Patient Disposition: Home, Self-Care Instructions: Community Acquired Pneumonia (ED) Additional Instructions: You were found to have concern for an early pneumonia within the right lung, we are adding additional antibiotic coverage. Take the Augmentin as directed, use a probiotic to help prevent diarrhea. Be sure to complete the course of antibiotic. Follow up with your primary care provider next week. Prescriptions: No Action ipratropium-albuterol 0.5 mg-3 mg(2.5 mg base)/3 mL solution for nebulization 3 ml inhalation BID PRN (Reason: wheezing) Qty: 180 2RF buspirone 10 mg tablet 15 mg PO BID 30 Days Qty: 90 2RF quetiapine [Seroquel] 25 mg tablet 25 mg PO BEDTIME Qty: 90 3RF valacyclovir 500 mg tablet 500 mg PO DAILY Qty: 90 3RF azithromycin 500 mg tablet 500 mg PO .COMPLEX 30 Days Qty: 14 12RF Rx Instructions: Frequency: Friday metoprolol tartrate 25 mg tablet 25 mg PO DAILY Qty: 90 0RF prednisone 10 mg tablet 30 mg PO DAILY Qty: 30 0RF lorazepam 0.5 mg tablet 0.5 mg PO DAILY PRN (Reason: anxiety) 30 Days Qty: 30 0RF Xarelto 20 mg tablet 20 mg PO DAILY Qty: 30 3RF Rx Instructions: must administer with evening meal levofloxacin 750 mg tablet 750 mg PO Q24H 7 Days Qty: 7 0RF cetirizine 10 mg tablet 10 mg PO DAILY PRN (Reason: Allergic Reaction) azelastine 137 mcg (0.1 %) aerosol,spray 1 spray intranasal .daily x1 Rx Instructions: administer into each nostril albuterol sulfate 2.5 mg /3 mL (0.083 %) solution for nebulization 2.5 mg inhalation Q4-6H PRN (Reason: Wheezing) rifampin 300 mg capsule 600 mg PO .COMPLEX 30 Days Qty: 14 12RF Rx Instructions: Frequency: Fridayday Fri ethambutol 400 mg tablet 1 g PO 3XW Qty: 35 12RF megestrol 20 mg tablet 20 mg PO BID 30 Days Qty: 60 0RF metoprolol succinate 50 mg tablet extended release 24 hr 50 mg PO BID 30 Days Qty: 60 2RF escitalopram oxalate 10 mg tablet 20 mg PO DAILY albuterol sulfate 90 mcg/actuation HFA aerosol inhaler 2 puff inhalation QID 30 Days Qty: 8.5 4RF montelukast [Singulair] 10 mg tablet 10 mg PO DAILY Qty: 30 6RF Trelegy Ellipta 200-62.5-25 mcg blister with device 1 inh inhalation DAILY Qty: 60 6RF Dupixent Pen 300 mg/2 mL pen injector 300 mg subcut Q2W Qty: 4 12RF Rx Instructions: Initial dose 600 mg, then 300 mg every 2 weeks subcutaneously Interventions: ED Discharge Assessment Last Done: 02/11/25 20:30 Discharge Date/Time: 02/11/25 20:33 Print Language: Swazi
[2025-02-11 20:03] LABS: Influenza A PCR NEGATIVE (Negative); Influenza B PCR NEGATIVE (Negative); Resp Syncy Virus RNA Qual PCR NEGATIVE (Negative); SARS COV2 PCR INHOUSE NEGATIVE (Negative)
[2025-02-11] MEDS: Amoxicillin/Potassium Clav 875 MG TABLET PO (20:29)
[2025-02-11 20:30] VITALS: BP 97/62; PULSE 74; RESP 16; TEMP 36.9; O2SAT 96
== END 2025-02-11 20:33 | disposition home or self-care (01) ==
PROVIDERS: Physician Assistant Medical; Emergency Provider Emergency Medicine; PCP Family Medicine
DX: J18.9 Pneumonia, unspecified organism (principal); R06.02 Shortness of breath; F41.9 Anxiety disorder, unspecified; Z79.899 Other long term (current) drug therapy; Z03.818 Encounter for observation for suspected exposure to other biological agents ruled out
CPT/HCPCS: 0241U; 36415; 71046; 80053; 83735; 85025; 93005; 99283; 99284

== ENCOUNTER → 2025-02-11 18:15 | Outpatient (BNV) | payer MEDICARE, SELFPAY | PROVIDERS: Emergency Provider Emergency Medicine; PCP Family Medicine; Visit Provider Internal Medicine | DX: R06.02 Shortness of breath (principal) | CPT/HCPCS: 93010 ==

== ENCOUNTER → 2025-02-11 18:20 | Outpatient (BNV) | payer MEDICARE, SELFPAY | PROVIDERS: Emergency Provider Emergency Medicine; PCP Family Medicine; Visit Provider Specialist | DX: R91.8 Other nonspecific abnormal finding of lung field (principal) | CPT/HCPCS: 71046 ==

== ENCOUNTER 2025-02-22 13:14 | Emergency (ER) | payer MEDICARE, SELFPAY ==
--- NOTE | ~2025-02-22 | XR_ITS ---
EXAMINATION: XR CHEST CLINICAL INFORMATION: SOB COMPARISON: None available. TECHNIQUE: 2 views of the chest were obtained. FINDINGS: Heart size is within normal limits. Hilar structures are unremarkable. Again seen are coarse markings in the right apex. Again seen is dense masslike cavitated opacity in the left apex, unchanged. Stable mild blunting of posterior costophrenic angles remains unchanged. XR/XR chest 2V IMPRESSION: Stable chronic biapical disease raises question of chronic granulomatous disease such as TB. No acute disease. Electronically signed by: Collins Martinez MD 02/22/2025 02:35 PM EDT
[2025-02-22 13:26] VITALS: BP 100/65; BP 118/63; PULSE 80; PULSE 82; RESP 16; TEMP 36.3; O2SAT 98; O2SAT 99; BMI 14.9
[2025-02-22 13:33] VITALS: BP 118/63; PULSE 82; RESP 16; TEMP 36.3; O2SAT 96
--- NOTE | 2025-02-22 13:37 | PC.NURSE ---
Patient A&O x 3. Patient presents to ED c/o SOB. Patient just finished ABX for PNA. 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 Patient has productive cough, producing yellow phlegm. O2 98% RA 17RR. Patient states I finished my abx and i still feel SOB Patient used updraft treatment this morning with no effect. Denies pain, fevers, n/v, sick contacts. VSS and up to date
[2025-02-22 14:40] LABS: MANUAL DIFF FLAG NO
[2025-02-22 14:41] LABS: Basophils Absolute Auto 0.1 X10*3/uL (0.0-0.2); Basophils Percent Auto 0.6 % (0-2); Eosinophils Absolute Auto 0.3 X10*3/uL (0.0-0.4); Eosinophils Percent Auto 2.8 % (0-4); Hematocrit 42.4 % (37.0-47.0); Hemoglobin 14.7 g/dl (12.0-16.0); Imm Gran Abs Auto 0.06 X10*3/uL (0.00-0.03); Imm Gran Pct Auto 0.5 % (0.0-0.4); Lymphocytes Absolute Auto 1.3 X10*3/uL (1.2-4.9); Lymphocytes Percent Auto 11.2 % (20-40); Mean Corpuscular HGB Conc 34.7 g/dl (31.0-35.0); Mean Corpuscular Hemoglobin 32.4 pg (27.0-33.0); Mean Corpuscular Volume 93.4 fL (80.0-98.0); Monocytes Absolute Auto 0.6 X10*3/uL (0.1-1.2); Monocytes Percent Auto 5.5 % (2-11); Neutrophils Absolute Auto 9.2 x10*3/uL (2.0-8.3); Neutrophils Percent Auto 79.4 % (45-73); Platelet Count 347 X10*3/uL (160-400); Red Blood Count 4.54 X10*6/uL (4.20-5.50); Red Cell Distribution Width 13.7 % (11.0-16.0); White Blood Count 11.6 X10*3/uL (4.8-10.8)
[2025-02-22 14:56] LABS: Alanine Aminotransferase 8 U/L (0-31); Albumin Level 4.1 g/dL (3.5-5.0); Alkaline Phosphatase 71 U/L (39-117); Anion Gap 12 (12-20); Aspartate Amino Transferase 18 U/L (5-31); Bilirubin Total 0.2 mg/dL (0.0-1.0); Blood Urea Nitrogen 15 mg/dL (9-16); Calcium 9.5 mg/dL (8.4-10.2); Carbon Dioxide 23 mmol/L (22-29); Chloride 110 mmol/L (96-108); Creatinine Clr Calc Pharmacy 48.5; Estimated Glomerular Filt Rate > 60; Glucose Random 113 mg/dL (60-115); Magnesium 2.2 mg/dL (1.6-2.6); Potassium 3.8 mmol/L (3.3-5.1); Sodium 141 mmol/L (135-145); Total Protein 6.9 g/dL (6.5-8.0)
--- NOTE | 2025-02-22 15:09 | ED.GENADULT ---
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 She reports that she feels anxiety played a component in her symptoms today. She denies chest pain, palpitations, dizziness or lightheadedness. Denies fevers. Reports yesterday she began coughing up yellow sputum. She called Dr. Chavarria today and he called her in a prescription for Levaquin. complaint: shortness of breath Related Data Home Medications ?Medication ?Instructions ?Recorded ?Confirmed albuterol sulfate 2.5 mg/3 mL 2.5 mg inhalation Q4-6H PRN 12/16/23 02/04/25 (0.083 %) solution for nebulization Wheezing azelastine 137 mcg (0.1 %) nasal 1 spray intranasal .daily x1 12/16/23 02/04/25 spray cetirizine 10 mg tablet 10 mg PO DAILY PRN Allergic 12/16/23 02/04/25 Reaction escitalopram oxalate 10 mg tablet 20 mg PO DAILY 07/28/24 02/04/25 Previous Rx's ?Medication ?Instructions ?Recorded ipratropium 0.5 mg-albuterol 3 mg 3 ml inhalation BID PRN wheezing 02/25/24 (2.5 mg base)/3 mL nebulization #180 mL soln ethambutol 400 mg tablet 1 g (2.5 x 400 mg) PO 3XW #35 tabs 06/17/24 buspirone 10 mg tablet 15 mg (1.5 x 10 mg) PO BID 30 days 06/20/24 #90 tabs quetiapine 25 mg tablet (Seroquel) 25 mg PO BEDTIME #90 tabs 07/20/24 albuterol sulfate 90 mcg/actuation 2 puff inhalation QID 30 days #8.5 07/28/24 aerosol inhaler grams valacyclovir 500 mg tablet 500 mg PO DAILY #90 tabs 08/13/24 rifampin 300 mg capsule 600 mg (2 x 300 mg) PO .Friday08/27/24Friday days #14 caps fluticasone fur. 200 mcg-umeclid 1 inh inhalation DAILY #60 ea 09/23/24 62.5 mcg-vilant 25 mcg inhalat.powder (Trelegy Ellipta) montelukast 10 mg tablet 10 mg PO DAILY #30 tabs 09/23/24 (Singulair) azithromycin 500 mg tablet 500 mg PO .Friday11/11/24 days #14 tabs dupilumab 300 mg/2 mL subcutaneous 300 mg (2 mL) subcut Q2W #4 mL 11/16/24 pen injector (Dupixent) metoprolol tartrate 25 mg tablet 25 mg PO DAILY #90 tabs 12/20/24 prednisone 10 mg tablet 30 mg (3 x 10 mg) PO DAILY #30 tabs 12/31/24 lorazepam 0.5 mg tablet 0.5 mg PO DAILY PRN anxiety 30 01/03/25 days #30 tabs rivaroxaban 20 mg tablet (Xarelto) 20 mg PO DAILY #30 tabs 01/26/25 megestrol 20 mg tablet 20 mg PO BID 30 days #60 tabs 02/04/25 metoprolol succinate 50 mg 50 mg PO BID 30 days #60 tabs 02/04/25 tablet,extended release 24 hr levofloxacin 750 mg tablet 750 mg PO Q24H 7 days #7 tabs 02/22/25 Allergies Allergy/AdvReac Type Severity Reaction Status Date / Time banana Allergy headaches Verified 02/22/25 13:28 chocolate Allergy hives Verified 02/22/25 13:28 codeine Allergy runny nose Verified 02/22/25 13:28 Influenza Virus Vaccines Allergy guillain-ba Verified 02/22/25 13:28 rre latex Allergy itching, Verified 02/22/25 13:28 rash sertraline [From Zoloft] Allergy Dizziness Verified 02/22/25 13:28 soy Allergy swelling/ed Verified 02/22/25 13:28 tritsa beef Allergy headaches Uncoded 02/22/25 13:28 cucumber Allergy rhinitis Uncoded 02/22/25 13:28 demerol Allergy unknown Uncoded 02/22/25 13:28 pork Allergy intolerant Uncoded 02/22/25 13:28 Review of Systems Review of Systems: As per HPI Yes all other systems are reviewed and are negative Constitutional: Constitutional: Reports as per HPI [facility] Past Medical History Medical History (Updated 02/22/25 @ 16:04 by Tamika Albarado NP) 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 Osteoporosis Multinodular thyroid History of cervical cancer Nicotine dependence, cigarettes, uncomplicated History of right breast cancer COPD (chronic obstructive pulmonary disease) Surgical History (Updated 11/03/24 @ 10:51 by Rashmi Sommer) History of partial mastectomy of right breast History of bronchoscopy History of hysterectomy History of breast augmentation History of appendectomy Family History Family History (System 11/03/24 @ 10:51 by Rashmi Sommer) Father Prostate CA Social History Social History (System 11/03/24 @ 10:51 by Rashmi Sommer) Household Members: None Housing: House Alcohol intake: current Alcohol intake frequency: holidays/special occasions only Alcohol type: wine Patient Tobacco Use Status: Current everyday Tobacco user Cigarette Packs Per Day: 0.5 Cigarettes Per Day: 5 Years Smoked: 35 e-Cigarette/Vaping Use: Never Used service: No Current occupational status: employed and retired Cognitive needs: No Hearing needs: No Vision needs: Yes Physical Exam ED Vital Signs: Vital Signs - 24 hr 02/22/25 13:26 02/22/25 13:33 02/22/25 15:30 Temperature 97.4 F 97.4 F 98.0 F Pulse Rate 82 82 71 Respiratory Rate 16 16 14 Blood Pressure 118/63 118/63 99/55 L Pulse Oximetry 98 96 96 Oxygen Delivery Method Room Air Room Air Room Air 02/22/25 16:00 Temperature 98.0 F Pulse Rate 71 Respiratory Rate 14 Blood Pressure 99/55 L Pulse Oximetry 96 Oxygen Delivery Method Room Air BMI result Body Mass Index 14.9 Vital signs have been reviewed and appear to be correct. Blood pressure normal. Heart rate normal. Respiratory rate normal. Temperature normal. Oxygen saturation normal. Const General: cooperative, healthy appearing and no acute distress Orientation/consciousness: oriented to person, oriented to place, oriented to time and patient oriented x3 Limitations: no limitations HENMT Head: Yes normocephalic and Yes atraumatic Ears: external ears normal General nose exam: Normal external nose present Face and sinus: Yes face symmetric Mouth: oropharynx normal and moist mucous membranes Throat: Yes uvula midline Eyes Pupils: Equal, round and reactive pupils present Neck Neck: Yes normal visual inspection and Yes supple Resp Effort & Inspection: normal respiratory effort and able to speak in complete sentences Auscultation: no crackles, no rhonchi, no wheezes and diminished lung sounds diffuse Cardio Rate: regular rate Rhythm: regular rhythm Heart sounds: S1 normal heart sound present and S2 normal heart sound present GI Palpation (GI): Soft to palpation and nontender Auscultation: normoactive bowel sounds General: Yes no CVA tenderness Back/Spine/Pelvis Back: no CVA tenderness Skin General skin exam: elasticity normal and turgor normal Neuro General: oriented to person, oriented to place, oriented to time, patient oriented x3, moves all extremities, no focal motor deficits and CN's II-XI intact bilaterally Cranial nerves: Yes Equal, round and reactive pupils present Cognition (Neuro): normal cognition Extrem General: Yes full ROM, Yes no pedal edema and Yes no calf tenderness Psych Mental Status: mental status grossly normal Affect: normal affect Thought process: Normal thought process present Medical Decision Making Medical Decision Making MDM Narrative: Patient is a 74-year-old female with history of asthma-COPD overlap syndrome and BAL cultures growing MAC, right breast CA, smoker, history of Guillan Groom due to influenza immunization presenting to the emergency department with Complaint of episode of shortness of breath while sitting on the couch at home. On exam patient is awake, A+Ox3, VS WNL, afebrile, normal neurological exam without focal deficits, physical exam findings as above. Given reported symptoms and physical exam findings, initial differential includes but is not limited to asthma/COPD exacerbation, bronchitis, pneumonia, viral illness. Labs notable for Slight leukocytosis, no anemia, no significant electrolyte abnormalities. viral panel negative. X-ray chest notable for no acute disease. My interpretation is in agreement with the radiologist's interpretation. Patient requesting discharge at this time, feel patient is stable. Advised her to mushroom picker the Levaquin prescribed by Dr. Chavarria in to begin taking it tonight. Return precautions discussed at bedside. Patient verbalized understanding of and agreement with plan. Differential Diagnosis Differential Diagnoses: The differential diagnosis associated with the presentation includes as per [facility] Admission/Observation Consideration of admission/observation: Escalation of care including admission/observation considered Patient would have been admitted to the hospital had their work up had any findings where hospital admission was appropriate and their clinical presentation warranted hospital admission. Lab Data [facility] Lab Attestation statement: I reviewed the patient's lab results. as per [facility] 02/22/25 14:36 02/22/25 14:36 Labs: Lab Results 02/22/25 02/22/25 Range/Units 14:28 14:36 WBC 11.6 H (4.8-10.8) X10*3/uL RBC 4.54 (4.20-5.50) X10*6/uL Hgb 14.7 (12.0-16.0) g/dl Hct 42.4 (37.0-47.0) % MCV 93.4 (80.0-98.0) fL MCH 32.4 (27.0-33.0) pg MCHC 34.7 (31.0-35.0) g/dl RDW 13.7 (11.0-16.0) % Plt Count 347 D (160-400) X10*3/uL MPV 9.0 L (9.4-12.3) fL Immature Gran % (Auto) 0.5 H (0.0-0.4) % Neut % (Auto) 79.4 H (45-73) % Lymph % (Auto) 11.2 L (20-40) % Roberts % (Auto) 5.5 (2-11) % Eos % (Auto) 2.8 (0-4) % Baso % (Auto) 0.6 (0-2) % Lymph # (Auto) 1.3 (1.2-4.9) X10*3/uL Roberts # (Auto) 0.6 (0.1-1.2) X10*3/uL Eos # (Auto) 0.3 (0.0-0.4) X10*3/uL Baso # (Auto) 0.1 (0.0-0.2) X10*3/uL Abs Immat Gran (auto) 0.06 H (0.00-0.03) X10*3/uL Absolute Neuts (auto) 9.2 H (2.0-8.3) x10*3/uL Absolute Nucleated RBC 0.000 (0.0-0.012) X10*3/uL Nucleated RBC % (auto) 0.0 (0.0-0.2) /100WBC Sodium 141 (135-145) mmol/L Potassium 3.8 (3.3-5.1) mmol/L Chloride 110 H (96-108) mmol/L Carbon Dioxide 23 (22-29) mmol/L Anion Gap 12 (12-20) BUN 15 (9-16) mg/dL Creatinine 0.67 (0.5-1.4) mg/dL Estim Creat Clear Calc 48.5 Estimated GFR > 60 Random Glucose 113 (60-115) mg/dL Calcium 9.5 (8.4-10.2) mg/dL Magnesium 2.2 (1.6-2.6) mg/dL Total Bilirubin 0.2 (0.0-1.0) mg/dL AST 18 (5-31) U/L ALT 8 (0-31) U/L Alkaline Phosphatase 71 (39-117) U/L Total Protein 6.9 (6.5-8.0) g/dL Albumin 4.1 (3.5-5.0) g/dL Influenza Type A (PCR) NEGATIVE (Negative) Influenza Type B (PCR) NEGATIVE (Negative) RSV RNA Qual (PCR) NEGATIVE (Negative) SARS-CoV-2 RNA (RT-PCR) NEGATIVE (Negative) Independent Interpretation I performed an independent interpretation of an: Plain X-Ray Interpretation: No evidence of acute pneumonia on chest xray Radiology Impression Discussion of test interpretation with radiology: I have reviewed the radiologist's reading. Radiologist Impression: XR/XR chest 2V IMPRESSION: Stable chronic biapical disease raises question of chronic granulomatous disease such as TB. No acute disease. External Record Review External record reviewed: Inpatient record, Office record and Outpatient record Discharge Plan Discharge Clinical Impression: Asthma-COPD overlap syndrome Patient Disposition: Home, Self-Care Instructions: COPD (Chronic Obstructive Pulmonary Disease) (DC) Additional Instructions: You were evaluated in the emergency department today for an episode of shortness of breath. Your labs and chest x-ray are reassuring. Start taking the Levaquin prescribed by Dr. Aura osborne. Follow up with him this week. Return to the emergency department if you develop chest pain, worsening shortness of breath, fever, dizziness or lightheadedness or any other new or concerning symptoms. Prescriptions: No Action ipratropium-albuterol 0.5 mg-3 mg(2.5 mg base)/3 mL solution for nebulization 3 ml inhalation BID PRN (Reason: wheezing) Qty: 180 2RF buspirone 10 mg tablet 15 mg PO BID 30 Days Qty: 90 2RF quetiapine [Seroquel] 25 mg tablet 25 mg PO BEDTIME Qty: 90 3RF valacyclovir 500 mg tablet 500 mg PO DAILY Qty: 90 3RF azithromycin 500 mg tablet 500 mg PO .Friday 30 Days Qty: 14 12RF metoprolol tartrate 25 mg tablet 25 mg PO DAILY Qty: 90 0RF prednisone 10 mg tablet 30 mg PO DAILY Qty: 30 0RF lorazepam 0.5 mg tablet 0.5 mg PO DAILY PRN (Reason: anxiety) 30 Days Qty: 30 0RF Xarelto 20 mg tablet 20 mg PO DAILY Qty: 30 3RF Rx Instructions: must administer with evening meal levofloxacin 750 mg tablet 750 mg PO Q24H 7 Days Qty: 7 0RF cetirizine 10 mg tablet 10 mg PO DAILY PRN (Reason: Allergic Reaction) azelastine 137 mcg (0.1 %) aerosol,spray 1 spray intranasal .daily x1 Rx Instructions: administer into each nostril albuterol sulfate 2.5 mg /3 mL (0.083 %) solution for nebulization 2.5 mg inhalation Q4-6H PRN (Reason: Wheezing) rifampin 300 mg capsule 600 mg PO .Friday 30 Days Qty: 14 12RF ethambutol 400 mg tablet 1 g PO 3XW Qty: 35 12RF megestrol 20 mg tablet 20 mg PO BID 30 Days Qty: 60 0RF metoprolol succinate 50 mg tablet extended release 24 hr 50 mg PO BID 30 Days Qty: 60 2RF escitalopram oxalate 10 mg tablet 20 mg PO DAILY albuterol sulfate 90 mcg/actuation HFA aerosol inhaler 2 puff inhalation QID 30 Days Qty: 8.5 4RF montelukast [Singulair] 10 mg tablet 10 mg PO DAILY Qty: 30 6RF Trelegy Ellipta 200-62.5-25 mcg blister with device 1 inh inhalation DAILY Qty: 60 6RF Dupixent Pen 300 mg/2 mL pen injector 300 mg subcut Q2W Qty: 4 12RF Rx Instructions: Initial dose 600 mg, then 300 mg every 2 weeks subcutaneously Interventions: ED Discharge Assessment Last Done: 02/22/25 16:00 Print Language: Micronesian
[2025-02-22 15:27] LABS: Influenza A PCR NEGATIVE (Negative); Influenza B PCR NEGATIVE (Negative); Resp Syncy Virus RNA Qual PCR NEGATIVE (Negative); SARS COV2 PCR INHOUSE NEGATIVE (Negative)
[2025-02-22 15:30] VITALS: BP 99/55; PULSE 71; RESP 14; TEMP 36.7; O2SAT 96
[2025-02-22 16:00] VITALS: BP 99/55; PULSE 71; RESP 14; TEMP 36.7; O2SAT 96
--- OUTSIDE RECORDS SUMMARY | 2025-02-22 16:20 | XMS_ITS | Clinical Summary ---
Author Organization [facility] ity Address [address] [place] [address] Care Team Providers Care French Teacher Name Role Phone Elyssa García DO Primary Care Provider [phone] Surgical History Surgery Date Site/Laterality Comments APPENDECTOMY [...] aneurysm 07/28/2018 DX:Brain aneurys m History of Guillain-Scotia sy ndrome due to influenza immunization 11/13/2018 DX:History of Guillain-B arre syndrome due to influenza immunization; COMMENT: 2016 Covid-19 12/21/2020 DX:COVID-19; COM MENT: 10/30 Gallstones DX:Gallstones COPD (chronic obstructive pu lmonary disease) ([facility]/HCC V24, [facility]/HCC V28) DX:COPD (chronic o bstructive pulmonary disease) ([facility]) Family History Medical History Relation Name Comments Prostate cancer Father mets to the bone Dementia Mother Other: cyst of brain Son Lung cancer Neg Hx Relation Name Status Comments Brother Father Mother Son Alive Social History Tobacco Use Types Packs/Day Years Used Date Smoking Tobacco: Every Day Cigarettes 0.5 52.5 Started: 09/08/1972 Smokeless Tobacco: Never Alcohol Use [...] should be classified as having osteoporosis. The [facility] Department of Internal Medicine recommends using [...] Sandoval should beclassified as having osteoporosis. The [facility] Department of Internal Medicine recommendsusing National [...] AM EDT Narrative 06/27/2023 6:12 AM EDT [facility] Diagnostic Imaging Department [address] [place] [address] Patient: ??CAROLE SANDOVAL ?/Age/Sex: 1950 - 72 - F Unit#: ??[id number] ? Location/Status: ??SPDICATLS/REG CLI ? Mnemonic/Ordering Site: [...] Procedure Note Eli Dowling MD - 10/14/2023 [facility] Diagnostic Imaging Department [address] [place] [id number] Patient: CAROLE SANDOVAL /Age/Sex: 1950 - 72 - F Unit#: [id number] Location/Status: SPDICATLS/REG CLI Mnemonic/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
== END 2025-02-22 16:13 | disposition home or self-care (01) ==
PROVIDERS: Emergency Provider Emergency Medicine; PCP Family Medicine
DX: J45.909 Unspecified asthma, uncomplicated (principal); R06.02 Shortness of breath; Z03.818 Encounter for observation for suspected exposure to other biological agents ruled out; F17.210 Nicotine dependence, cigarettes, uncomplicated
CPT/HCPCS: 0241U; 71046; 80053; 83735; 85025; 99283; 99284

== ENCOUNTER → 2025-02-22 14:15 | Outpatient (BNV) | payer MEDICARE, SELFPAY | PROVIDERS: Emergency Provider Emergency Medicine; PCP Family Medicine; Visit Provider Radiology Diagnostic Radiology | DX: R06.02 Shortness of breath (principal) | CPT/HCPCS: 71046 ==

== ENCOUNTER 2025-03-03 09:46 | Outpatient (REF) | payer MEDICARE, SELFPAY ==
--- OUTSIDE RECORDS SUMMARY | 2025-03-03 11:01 | XMS_ITS | Clinical Summary ---
Author Organization [facility] ity Address [address] [place] [address] Care Team Providers Care Tumbling Instructor Name Role Phone Elyssa García DO Primary Care Provider [phone] Surgical History Surgery Date Site/Laterality Comments APPENDECTOMY [...] aneurysm 07/28/2018 DX:Brain aneurys m History of Guillain-Priddy sy ndrome due to influenza immunization 11/13/2018 DX:History of Guillain-B arre syndrome due to influenza immunization; COMMENT: 2016 Covid-19 12/21/2020 DX:COVID-19; COM MENT: 10/30 Gallstones DX:Gallstones COPD (chronic obstructive pu lmonary disease) ([facility]/HCC V24, [facility]/HCC V28) DX:COPD (chronic o bstructive pulmonary disease) ([facility]) Family History Medical History Relation [...] reviewed with CAD and compared to previous. Both standard and implant displaced views were obtained bilaterally. Bilateral subpectoral silicone implants remain appropriately positioned and configured. The breasts are composed of fatty and fibroglandular tissue. No suspicious mass, architectural distortion or suspicious calcifications [...] Narrative 08/20/2023 3:52 PM EST BONE DENSITY Lumbar Spine T-score is -3.0 [...] fracture risk by FRAX. Elyssa García DO IM DXA PROCEDURES Final Result * CT LUNG SCREENING LOW DOSE (06/27/2023 6:12 AM EDT) Anatomical Region Laterality Modality Computed Tomogra phy 06/25/2023 11:1 0 AM EDT Narrative 06/27/2023 6:12 AM EDT [facility] Diagnostic Imaging Department [address] [place] [address] Patient: CAROLE SANDOVAL /Age/Sex: 1950 - 72 - F Unit#: [id number] Location/Status: CHRISTINE/DEMAR I Mnemonic/Ordering Site: [facility] Ordering Physician: JAREK PERKINS MD CT Lung Screening Low Dose - 06/25/23 - 1125 Report Status:Signed Indication: Greater than 20 total pack-year smoking history, asymptomatic current smoker Technique: Low-dose CT scan of the chest obtained as a lung cancer screening study. Multiplanar reformatted images were obtained. Dose reduction technique: ASIR (Adaptive statistical iterative reconstruction) and/or AEC (automated exposure control) COMPARISON: 2021. FINDINGS: Lack of intravenous contrast limits evaluation of the antonio, vascular structures and visualized abdominal viscera. Lungs/airways: Secretions are seen in the trachea and right mainstem bronchus with bronchial wall thickening. Emphysematous changes. Calcified granuloma New spiculated 3.4 x 1.2 x 2.7 cm mass left upper lobe (series 3, image 70; series 601, image 67) Other scattered sub-5 mm pulmonary nodules are similar to prior. Base of the neck, mediastinum, heart, chest wall, vessels: No enlarged mediastinal lymphadenopathy. Hilar lymphadenopathy cannot be assessed due to lack of IV contrast. Thoracic aortic and coronary artery calcifications. Trace pericardial effusion/thickening. Bilateral breast implants. Upper abdomen: This study was performed without contrast and with lower than standard dose. These factors reduce the sensitivity for detection of small lesions in the upper abdomen. 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
[2025-03-03 11:32] LABS: MANUAL DIFF FLAG NO
[2025-03-03 11:38] LABS: Basophils Absolute Auto 0.1 X10*3/uL (0.0-0.2); Basophils Percent Auto 0.6 % (0-2); Eosinophils Absolute Auto 0.1 X10*3/uL (0.0-0.4); Eosinophils Percent Auto 0.5 % (0-4); Hematocrit 41.6 % (37.0-47.0); Hemoglobin 13.6 g/dl (12.0-16.0); Imm Gran Abs Auto 0.14 X10*3/uL (0.00-0.03); Imm Gran Pct Auto 1.2 % (0.0-0.4); Lymphocytes Absolute Auto 1.4 X10*3/uL (1.2-4.9); Lymphocytes Percent Auto 12.2 % (20-40); Mean Corpuscular HGB Conc 32.7 g/dl (31.0-35.0); Mean Corpuscular Hemoglobin 31.5 pg (27.0-33.0); Mean Corpuscular Volume 96.3 fL (80.0-98.0); Mean Platelet Volume 10.5 fL (9.4-12.3); Monocytes Absolute Auto 0.3 X10*3/uL (0.1-1.2); Monocytes Percent Auto 2.7 % (2-11); Neutrophils Absolute Auto 9.4 x10*3/uL (2.0-8.3); Neutrophils Percent Auto 82.8 % (45-73); Platelet Count 242 X10*3/uL (160-400); Red Blood Count 4.32 X10*6/uL (4.20-5.50); White Blood Count 11.4 X10*3/uL (4.8-10.8)
[2025-03-03 12:04] LABS: Alanine Aminotransferase 9 U/L (0-31); Albumin Level 3.9 g/dL (3.5-5.0); Alkaline Phosphatase 59 U/L (39-117); Anion Gap 11 (12-20); Aspartate Amino Transferase 17 U/L (5-31); Bilirubin Total 0.5 mg/dL (0.0-1.0); Blood Urea Nitrogen 14 mg/dL (9-16); Calcium 9.1 mg/dL (8.4-10.2); Carbon Dioxide 22 mmol/L (22-29); Chloride 109 mmol/L (96-108); Estimated Glomerular Filt Rate > 60; Glucose Fasting 123 mg/dL (60-99); Potassium 3.9 mmol/L (3.3-5.1); Sodium 138 mmol/L (135-145); Total Protein 6.3 g/dL (6.5-8.0)
[2025-03-03 12:18] LABS: Vitamin D 25-OH Total 42.4 ng/mL (>30)
[2025-03-03 12:26] LABS: Folate 7.6 ng/mL (> or = 4.0); Vitamin B12 1077 pg/mL (200-900)
== END 2025-03-03 09:47 | disposition home or self-care (01) ==
LOC: HO.WFDLDS 09:46
PROVIDERS: Visit Provider Family Medicine
DX: Z00.00 Encounter for general adult medical examination without abnormal findings (principal); R79.89 Other specified abnormal findings of blood chemistry; R63.0 Anorexia; E53.8 Deficiency of other specified B group vitamins; R63.6 Underweight; E55.9 Vitamin D deficiency, unspecified
CPT/HCPCS: 36415; 80053; 82306; 82607; 82746; 85025

== ENCOUNTER 2025-03-09 17:25 | Outpatient (REF) | payer MEDICARE, SELFPAY ==
--- OUTSIDE RECORDS SUMMARY | 2025-03-09 17:27 | XMS_ITS | Clinical Summary ---
Author Organization [facility] ity Address [address] [place] [address] Care Team Providers Care Temperature Regulator Pyrometer Name Role Phone Elyssa García DO Primary Care Provider [phone] Surgical History Surgery Date Site/Laterality Comments APPENDECTOMY [...] aneurysm 07/28/2018 DX:Brain aneurys m History of Guillain-Sylvester sy ndrome due to influenza immunization 11/13/2018 DX:History of Guillain-B arre syndrome due to influenza immunization; COMMENT: 2016 Covid-19 12/21/2020 DX:COVID-19; COM MENT: 10/30 Gallstones DX:Gallstones COPD (chronic obstructive pu lmonary disease) ([facility]/HCC V24, [facility]/HCC V28) DX:COPD (chronic o bstructive pulmonary disease) ([facility]) Family History Medical History Relation Name Comments [...] should be classified as having osteoporosis. [facility] Department of Internal Medicine recommends using [...] Sandoval should beclassified as having osteoporosis. The [facility] Department of Internal Medicine recommendsusing National [...] AM EDT Narrative 06/27/2023 6:12 AM EDT [facility] Diagnostic Imaging Department [address] [place] [address] Patient: CAROLE SANDOVAL /Age/Sex: 1950 - 72 - F Unit#: [id number] Location/Status: CHRISTINE/DEMAR I Mnemonic/Ordering Site: 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
[2025-03-09 17:40] LABS: Appearance Urine Clear; Glucose Urine UA 250 mg/dL (Negative); PH 5.5 (5.0-9.0); Specific Gravity - Urine >= 1.030 (1.005-1.025); UMIC TRIGGER UACC YES
[2025-03-09 18:11] LABS: Microalbum/Creatinine Ratio Ur 6.0 ug/mg cr (<30)
== END 2025-03-09 17:26 | disposition home or self-care (01) ==
LOC: HO.LNP 17:25
PROVIDERS: Visit Provider Family Medicine
DX: I10 Essential (primary) hypertension (principal)
CPT/HCPCS: 81001; 82043; 82570

== ENCOUNTER 2025-04-05 10:33 | Outpatient (AMB) | payer MEDICARE, SELFPAY ==
--- NOTE | 2025-04-05 10:55 | A.OFFPC_ITS ---
Vital Signs 04/05/25 10:57 Height 5 ft 6 in Weight 87 lb 2 oz BMI 14.1 BP 100/60 Blood Pressure Location Lt brachial Position Sitting Respiration 12 Pulse 78 Pulse Source Pulse Oximeter Temp 97.9 F Temp Source Oral Pulse Oximetry (%) 94 Oxygen Delivery Method Room Air Intake Visit Reasons: ed follow up/breathing issues/gipson/bloodwork Intake Note: patient is scheduled for ed follow up Sample Tester Required: No Allergies banana Allergy (Verified 04/05/25 10:55) headaches chocolate Allergy (Verified 04/05/25 10:55) hives codeine Allergy (Verified 04/05/25 10:55) runny nose Influenza Virus Vaccines Allergy (Verified 04/05/25 10:55) guillain-barre latex Allergy (Verified 04/05/25 10:55) itching, rash sertraline (From Zoloft) Allergy (Verified 04/05/25 10:55) Dizziness soy Allergy (Verified 04/05/25 10:55) swelling/edema beef Allergy (Uncoded 03/10/25 15:35) headaches cucumber Allergy (Uncoded 03/10/25 15:35) rhinitis demerol Allergy (Uncoded 03/10/25 15:35) unknown pork Allergy (Uncoded 03/10/25 15:35) intolerant Medication List - Last Reconciled 04/05/25 by Yusuf Motley MD albuterol sulfate 90 mcg/actuation 2 puffs inhalation QID 30 days albuterol sulfate 2.5 mg inhalation Q4-6H PRN azelastine 1 spray intranasal .daily x1 azithromycin Frequency: Friday 30 days hjiphfnewy-ltdgmheg-clxghvesai 160-9-4.8 mcg/actuation (Breztri Aerosphere) 2 inhalations inhalation BID 30 days buspirone 15 mg (1.5 x 10 mg) PO BID 30 days cetirizine 10 mg PO DAILY PRN cyproheptadine 2 mg (1/2 x 4 mg) PO TID PRN 30 days dupilumab (Dupixent) 300 mg (2 mL) subcut Q2W escitalopram oxalate 20 mg PO DAILY ethambutol 1 g (2.5 x 400 mg) PO 3XW ywopyfbuwfc-jbucspihh-kcfpwgkk 200-62.5-25 mcg (Trelegy Ellipta) 1 ea inhalation DAILY ipratropium-albuterol 0.5 mg-3 mg(2.5 mg base)/3 mL 3 mL inhalation BID PRN levofloxacin 750 mg PO Q24H 7 days lorazepam 0.5 mg PO DAILY PRN 30 days metoprolol succinate ER 50 mg PO BID 30 days montelukast 10 mg PO DAILY prednisone 10 mg PO DAILY propranolol 10 mg PO BID PRN quetiapine (Seroquel) 25 mg PO BEDTIME rifampin Frequency: Friday 30 days rivaroxaban (Xarelto) 20 mg PO DAILY valacyclovir 500 mg PO DAILY Tobacco use date assessed: 02/04/25 Dental Screening Dental Screen Date: 02/04/25 HPI ed follow up/breathing issues/gipson/bloodwork HPI Details 74 y/o female presents to f/u ED visit . Had presented with difficulty breathing. Exam negative for acute PE. Moderate to severe emphysema. New 1.7cm irregular nodule in R upper lobe. Unchanged 0.8cm L lower lobe nodule. Pt notes breathing seems to be a bit better. She reports she is still coughing yellow phleghm. 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 Osteoporosis Multinodular thyroid History of cervical cancer Nicotine dependence, cigarettes, uncomplicated History of right breast cancer COPD (chronic obstructive pulmonary disease) Surgical History (Updated 11/03/24 @ 10:51 by Rashmi Sommer) History of partial mastectomy of right breast History of bronchoscopy History of hysterectomy History of breast augmentation History of appendectomy Family History (System 11/03/24 @ 10:51 by Rashmi Sommer) Father Prostate CA Social History (Updated 03/10/25 @ 15:34 by Mirlande Hernandez) Household Members: None Housing: House Alcohol intake: current Alcohol intake frequency: holidays/special occasions only Alcohol type: wine Patient Tobacco Use Status: Current everyday Tobacco user Cigarette Packs Per Day: 0.5 Cigarettes Per Day: 5 Years Smoked: 35 e-Cigarette/Vaping Use: Never Used service: No Current occupational status: employed and retired Cognitive needs: No Hearing needs: No Vision needs: Yes Questionnaire PHQ-9 Over the last 2 weeks, how often have you been bothered by any of the following problems? 1. Little interest or pleasure in doing things: not at all 2. Feeling down, depressed, or hopeless: not at all 4. Feeling tired or having little energy: not at all 5. Poor appetite or overeating: not at all 6. Feeling bad about yourself - or that you are a failure or have let yourself or your family down: not at all 7. Trouble concentrating on things, such as reading the newspaper or watching television: not at all 8. Moving or speaking so slowly that other people could have noticed. Or the opposite - being so fidgety or restless that you have been moving around a lot more than usual: not at all 9. Thoughts that you would be better off or of hurting yourself in some way: not at all Source: Developed by Drs. Diaz Elizabeth, Nicolasa Nogueira, Kelton Andersen and colleagues, with an educational izabela from [employer]. Thrive Questionnaire Date Thrive assessed: 02/04/25 I am a: Patient What is your living situation today?: I have a steady place to live Within the past 12 months, did the food you bought not last and you didn't have the money to get more?: Sometimes True Within the past 12 months, did you worry whether your food would run out before you got money to buy more?: Sometimes True Do you have trouble paying for medicines?: No Do you have trouble getting transportation to medical appointments?: No Do you have trouble paying your heating and electricity bill?: No Do you have trouble taking care of your child, family member or friend?: No Do you have trouble with day-to-day activities such as bathing, preparing meals, shopping, managing finances, etc.?: No Are you currently unemployed and looking for a job?: No Are you interested in more education?: No Please select the resources that you would like help with: Food Currently or been in a relationship where the following occur: No concerns reported THRIVE Score: 2 AUDIT C Alcohol Use Questionnaire (AUDIT-C) 1. How often do you have a drink containing alcohol?: Monthly or less 2. How many drinks containing alcohol do you have on a typical day when you are drinking?: 1 or 2 3. How often do you have six or more drinks on one occasion?: Never Total Score: 1 LAWRENCE-7 AMB Questionnaire LAWRENCE-7 Date LAWRENCE - 7 assessed: 02/04/25 Feeling nervous, anxious, or on edge: 3 = Nearly every day Not being able to stop or control worryin = Nearly every day Worrying too much about different things: 3 = Nearly every day Trouble relaxin = Nearly every day Being so restless that it is hard to sit still: 3 = Nearly every day Becoming easily annoyed or irritable: 0 = Not at all Feeling afraid as if something awful might happen: 3 = Nearly every day Total LAWRENCE-7 score (0-4 normal; 5-9 mild; 10-14 moderate; 15-21 severe): 18 Source: Developed by Drs. Diaz Elizabeth, Nicolasa Nogueira, Kelton Andersen and colleagues, with an educational izabela from [employer]. Review of Systems Const Denies chills, Denies fatigue, Denies fever(s), Denies headache(s) and Denies weakness ENT Denies dizziness and Denies headache(s) Card Denies chest pain, Denies lightheadedness, Denies dyspnea and Denies other (Palpitations) Resp Denies cough, Denies dyspnea, Denies wheezing and Denies other ( shortness of breath) Musc Denies numbness and Denies tingling Neuro Denies dizziness, Denies headache(s), Denies numbness, Denies tingling, Denies paresthesias and Denies weakness Psych Denies anxiety and Denies depression Endo Denies fatigue Aller/Immun Denies wheezing Physical exam (Primary Care) Vital Signs: Last Vital Signs Temp 97.9 F 04/05/25 10:57 Pulse 78 04/05/25 10:57 Resp 12 04/05/25 10:57 BP 100/60 04/05/25 10:57 Pulse Ox 94 04/05/25 10:57 Oxygen Delivery Method Room Air 04/05/25 10:57 BMI result Body Mass Index 14.1 Tobacco/Smoking Status: Tobacco use Status Tobacco use date assessed 02/04/25 04/05/25 11:00 Patient Tobacco Use Status Current everyday Tobacco 04/05/25 11:00 e-Cigarette/Vaping Use Never Used 04/05/25 11:00 Thrive Assessment: Date of Thrive Assessment Date Thrive assessed 02/04/25 04/05/25 11:00 Currently or been in a relationship where the following occur: No concerns reported Const General: no acute distress and well developed Nutritional Appearance: well nourished Orientation/consciousness: patient oriented x3 [facility] Head: Yes normocephalic and Yes atraumatic Eyes General: appearance normal, both eyes and all related structures Pupils: Equal, round and reactive pupils present EOM: EOMs intact bilaterally Resp Effort & Inspection: normal respiratory effort Auscultation: clear to auscultation bilaterally Cardio Rate: regular rate Rhythm: regular rhythm Heart sounds: S1 normal heart sound present, S2 normal heart sound present, no gallops, no murmurs and no rubs Neuro General: patient oriented x3 and gait normal Cranial nerves: Yes Equal, round and reactive pupils present Psych Affect: normal affect Coding Level of Care Code Est Pt Level 4 (31064) Diagnoses COPD (chronic obstructive pulmonary disease) J44.9 Shortness of breath R06.02 Lung nodules R91.8 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 Anxiety F41.9 Assessment & Plan Assessment & Plan (1) COPD (chronic obstructive pulmonary disease): Code(s): J44.9 - Chronic obstructive pulmonary disease, unspecified Category: Medical (2) Shortness of breath: Code(s): R06.02 - Shortness of breath Category: Medical (3) Lung nodules: Code(s): R91.8 - Other nonspecific abnormal finding of lung field Category: Medical (4) Mycobacterium avium complex: Code(s): A31.0 - Pulmonary mycobacterial infection Category: Medical (5) Anxiety: Code(s): F41.9 - Anxiety disorder, unspecified Category: Medical Plan Several of ED visits for worsening shortness of breath likely secondary to COPD exacerbation with dehydration. Patient also has history of MAC infection and lung nodules with new 1.7 cm nodule at right upper lung ortiz incidentally seen on imaging at [facility] in early March. Patient has been given a prednisone taper and continues her inhaled medications. Breathing has improved. She has an upcoming appointment with her head worker. She continues ethambutol, rifampin and azithromycin for MAC. She has an upcoming appointment with Hematology-Oncology and imaging and biopsies for the above nodule. Dehydration has resolved. Patient notes that her appetite is much improved with cyproheptadine I started earlier this month. Encouraged her to hydrate well and continue high-calorie high-protein foods and supplements. Ongoing anxiety: She is on escitalopram and has a psychiatrist. Psychiatrist just started Ativan b.i.d. which is helping. Encouraged her to continue the above medication regimen and follow-up with her psychiatrist.
[2025-04-05 10:57] VITALS: BP 100/60; PULSE 78; RESP 12; TEMP 36.6; O2SAT 94; BMI 14.1
--- OUTSIDE RECORDS SUMMARY | 2025-04-05 11:35 | XMS_ITS | Data Portability ---
Author Organization [place] - Included [facility] , [employer] [facility] Address [address] [place] [address] Assessment Encounter Date Assessment Date Assessment LastModified [...] follow up PCP. Review meds, dosages. Suggest sales service promoter for closer evaluation. Calories/Protein consumed daily. Eating [...] By Organization Details Last Modified Time 03/12/2025 [id number] abnormal weight loss: care instructions [email or web address] Not available 03/12/2025 13:01:09 abnormal weight loss: care instructions [email or web address] Not available 03/12/2025 13:01:09 Reason for Referral None Reported. Problems Name Problem SNOMED Code Status Onset Date Resolution Date Notes Provider Name and Address Organization Details Recorded Time Anxiety 44160147 Active TAMELA Jackson - Included [facility] 4 10:26:28 Seasonal allergy 567326888 Active allergic rhinitis Estela najera [place] - Included [facility] 4 10:27:00 Tachycardi a 1727521 Active Estela najera [place] - Included [facility] 4 10:27:13 Notes:underdeveloped frontal lobe since Bacterial blood ingection-follows Oncology Hx Blood clots Problem Notes None recorded. Medical Equipment None Reported. Allergies Allergen ID Allergen Name Allergen Category Reaction Reaction Severity Criticality Documentation Date Start Date Code Code System Note Provider Name and Address Organization Details Recorded Time codeine medicatio n Not available Not available Not available 07/16/2024 2670 RxNorm Not Available Included [facility] 4 09:19:07 38114 Zoloft medicatio n Not available Not available Not available 07/16/2024 92195 RxNorm Not Available Included [facility] 5 12:33:23 Medications Name Sig Start Date [...] Day Smoker unknown TAMELA Jackson - Included [facility] 08/03/2024 10:31:03 How Much Tobacco Do You Smoke? 0.5 PPD [email or web address] Information not available 08/03/2024 Sex: Unknown Functional Status Question Answer Note LastModified by Organizat ion Details LastModified Time Do you use any illicit or recreational drugs? No [email or web address] Information not available 08/03/2024 Do you or have you ever used any other forms of tobacco or nicotine? No Information not available 08/03/2024 What is your level of alcohol consumption? None [email or web address] Information not available 08/03/2024 Mental Status None recorded. Family History Relationship Description Onset Age of this Age Resolved Age Notes LastModified by Organization Details LastModified Time Father No current problems or disability [email or web address] Not available 07/10 10:29:23 Mother No current problems or disability [email or web address] Not available 07/10 10:29:23 Medical History No medical history recorded. Gynecological HistoryNo gynecological history recorded. Obstetrics History GPAL:G 0 P 0 0 0 0 Past Encounters Encounter ID Performer Location Encounter Start Date Encounter Closed Date Diagnosis/Indication Diagnosis SNOMED-CT Code Diagnosis ICD10 Code Diagnosis Note [id number] IESHA Escobar [address] [address] 03/12/2025 12:42:43 03/12/2025 13:14:20 Weight decreased 210632087 R63.4 Unintentio nal weight loss 813361461 R63.4 Health Concerns Section Related Observation LastModified [...] 1 *SELF PAY* Vida Alva 07/24/2024 2 [facility] MEDICARE [id number] Carole Alva [id number] Carole Alva 03/12/2025 1 [facility] [place] [address] Carole Alva [id number] Carole Alva 03/12/2025 [employer] [id number] Carole Alva [id number] Carole Alva OBGyn Episode No OBEpisode recorded.
--- OUTSIDE RECORDS SUMMARY | 2025-04-05 11:35 | XMS_ITS | Clinical Summary ---
Author Organization 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; COMMENT: 2016 Covid-19 12/21/2020 DX:COVID-19; COM MENT: 10/30 Gallstones DX:Gallstones COPD (chronic obstructive pu lmonary disease) ([facility]/HCC V24, [facility]/HCC V28) DX:COPD (chronic o bstructive pulmonary disease) ([facility]) Family History Medical History Relation Name Comments Prostate cancer Father mets to the bone Dementia Mother Other: cyst of brain Son Lung cancer Neg Hx Relation Name Status Comments Brother Father Mother Son Alive Social History Tobacco Use Types Packs/Day Years Used Date Smoking Tobacco: Every Day Cigarettes 0.5 52.6 Started: 09/08/1972 Smokeless Tobacco: Never Alcohol Use [...] series) 2012 Colorectal Cancer Screening: Colonoscopy 08/17/2022 Falls Risk Assessment 08/17/2022 Hepatitis C Screening 08/17/2022 Social Influencers of Health Screening 08/17/2022 COVID-19 Vaccine ( season) 2024 01/29/2022, 06/28/2021, 06/09/2021, Additional history exists Depression Screening 09/08/2024 Influenza Vaccine (#1) 2025 Breast Cancer Screening [...] should be classified as having osteoporosis. The [facility] Department of Internal Medicine [...] Sandoval should beclassified as having osteoporosis. The [facility] Department of Internal Medicine [...] AM EDT Narrative 06/27/2023 6:12 AM EDT [facility] Diagnostic Imaging Department [address] [place] [address] Patient: CAROLE SANDOVAL /Age/Sex: 1950 - 72 - F Unit#: [id number] Location/Status: CHRISTINE/DEMAR I Mnemonic/Ordering Site: [facility] Ordering Physician: JAREK PERKINS MD CT [...] Procedure Note Eli Dowling MD - 10/14/2023 [facility] Diagnostic Imaging Department [address] [place] [address] Patient: LORICAROLE./Age/Sex: 1950 - 72 - F Unit#: [id number] Location/Status: SPDICATLS/REG CLI Mnemonic/Ordering Site: [facility]/SPCT Ordering Physician: JAREK PERKINS MD CT Lung [...] Documents on File Type Date Recorded Patient Application Tester Expl anation Health Care Decision (hx) 07/15/2023 AD SANTAMARIA DIRECTIVE Health Care Decision (hx) 07/15/2023 AD SANTAMARIA DIRECTIVE Health Care Decision (hx) 07/15/2023 AD SANTAMARIA DIRECTIVE Health Care Decision (hx) 07/15/2023 AD SANTAMARIA DIRECTIVE Health Care Decision (hx) 07/15/2023 AD SANTAMARIA DIRECTIVE Care Teams International Accountant Relationship Specialty Start Date End Date Elyssa García DO PCP - General Internal Medicine 09/06/21
== END 2025-04-05 11:29 | disposition home or self-care (01) ==
LOC: HO.HMCFM 10:33
PROVIDERS: PCP Family Medicine; Visit Provider Family Medicine
DX: J44.9 Chronic obstructive pulmonary disease, unspecified (principal); R06.02 Shortness of breath; R91.8 Other nonspecific abnormal finding of lung field; A31.0 Pulmonary mycobacterial infection; F41.9 Anxiety disorder, unspecified

== ENCOUNTER → 2025-04-05 10:33 | Outpatient (BNVA) | payer MEDICARE, SELFPAY | PROVIDERS: PCP Family Medicine; Visit Provider Family Medicine | DX: J44.9 Chronic obstructive pulmonary disease, unspecified (principal); R06.02 Shortness of breath; R91.8 Other nonspecific abnormal finding of lung field; A31.0 Pulmonary mycobacterial infection; F41.9 Anxiety disorder, unspecified | CPT/HCPCS: 99212 ==

== ENCOUNTER 2025-04-18 08:34 | Day surgery (SDC) | payer MEDICARE, SELFPAY ==
--- OUTSIDE RECORDS SUMMARY | 2025-03-24 15:31 | XMS_ITS | Clinical Summary ---
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 The [facility] Department of Internal Medicine recommends [...] Sandoval should beclassified as having osteoporosis. The [facility] Department of Internal Medicine recommendsusing [...] AM EDT Narrative 06/27/2023 6:12 AM EDT [facility] Diagnostic Imaging Department [address] [place] [address] Patient: CAROLE SANDOVAL /Age/Sex: 1950 - 72 - F Unit#: [id number] Location/Status: CHRISTINE/DEMAR I Mnemonic/Ordering Site: [facility] Ordering Physician: JAREK PERKINS MD CT [...] Procedure Note Eli Dowling MD - 10/14/2023 [facility] Diagnostic Imaging Department [address] [place] [address] Patient: LORICAROLE./Age/Sex: 1950 - 72 - F Unit#: [id number] Location/Status: SPDICATLS/REG CLI Mnemonic/Ordering Site: [facility]/SPCT Ordering Physician: JAREK PERKINS MD CT [...] Documents on File Type Date Recorded Patient Shear Tender Expl anation Health Care Decision (hx) 07/15/2023 AD SANTAMARIA DIRECTIVE Health Care Decision (hx) 07/15/2023 AD SANTAMARIA DIRECTIVE Health Care Decision (hx) 07/15/2023 AD SANTAMARIA DIRECTIVE Health Care Decision (hx) 07/15/2023 AD SANTAMARIA DIRECTIVE Health Care Decision (hx) 07/15/2023 AD SANTAMARIA DIRECTIVE Care Teams Medical Staff Credentialing Coordinator Relationship Specialty Start Date End Date Elyssa García DO PCP - General Internal Medicine 09/06/21
--- OUTSIDE RECORDS SUMMARY | 2025-03-24 15:32 | XMS_ITS | Data Portability ---
Author Organization [place] - Included [facility] , [employer] [facility] Address [address] [place] [address] Assessment Encounter Date Assessment Date Assessment LastModified by Organization Details LastModified Time 03/12/2025 03/12/2025 Abnormal weight loss vs Medication side effects Assessment: patient with abnormal weight loss. Has had bacterial work up done and followed with Oncology, although cleared and still loosing weight. Does have PCP appointment next week. Diagnosis and treatment plan discussed with patient using shared decision making. Patient voices understanding and agrees with treatment plan. PLAN: Suggest follow up PCP. Review meds, dosages. Suggest profile saw operator for closer evaluation. Calories/Protein consumed daily. Eating more frequently. Slowly begin to eat 5 to 6 smaller meals during the day. Choosing food with lots of nutrients. Try smoothies and shakes.Follow up with PMD 24-48 hours or DOD if needed. Report to ED with worsening of symptoms, increased work of breathing, decreased oral intake, or any other issues or concerns. [email or web address] Not available 03/12/2025 12:54:25 Plan of Treatment Reminders Order Date Submit Date Provider Last Modified By Organization Details Last Modified Time Details Appointments None record ed. Lab None record ed. Referral None record ed. Procedures None record ed. Surgeries None record ed. Imaging None record ed. Medication Orders None record ed. Patient TargetsNo targets recorded. Patient Instructions Encounter Date Encounter Id Patient Instructions Last Modified By Organization Details Last Modified Time 03/12/2025 [id number] abnormal weight loss: care instructions [email or web address] Not available 03/12/2025 13:01:09 abnormal weight loss: care instructions [email or web address] Not available 03/12/2025 13:01:09 Reason for Referral None Reported. Problems Name Problem SNOMED Code Status Onset Date Resolution Date Notes Provider Name and Address Organization Details Recorded Time Anxiety 41570200 Active TAMELA Jackson - Included [facility] 4 10:26:28 Seasonal allergy 282737699 Active allergic rhinitis Estela najera [place] - Included [facility] 4 10:27:00 Tachycardi a 5046146 Active Estela najera [place] - Included [facility] 4 10:27:13 Notes:underdeveloped frontal lobe since Bacterial blood ingection-follows Oncology Hx Blood clots Problem Notes None recorded. Medical Equipment None Reported. Allergies Allergen ID Allergen Name Allergen Category Reaction Reaction Severity Criticality Documentation Date Start Date Code Code System Note Provider Name and Address Organization Details Recorded Time codeine medicatio n Not available Not available Not available 07/16/2024 2670 RxNorm Not Available Included [facility] 4 09:19:07 65852 Zoloft medicatio n Not available Not available Not available 07/16/2024 45405 RxNorm Not Available Included [facility] 5 12:33:23 Medications Name Sig Start Date Stop Date Status Note LastModified by Organization Details LastModified Time azithromycin active Not Available Not Available Not Available rifampin active Not Available Not Avai lable Not Available metoprolol tartrate active Not Available Not Available Not Available fludrocortis one active Not Available Not Available Not Available Megace active Not Available Not Availa ble Not Available buspirone active Not Available Not Sari ilable Not Available Adult Low Dose Aspirin active Not Available Not Available Not Available UNLISTED MEDICATION [Migrated medication name:] SEROquel::2 5 active Not Available Not Available No t Available Xarelto active Not Available Not Avail able Not Available Vitals None Recorded Social History Question Answer Notes LastModified by Organizat ion Details LastModified Time Tobacco Smoking Status Current Every Day Smoker unknown TAMELA Jackson - Included [facility] 08/03/2024 10:31:03 How Much Tobacco Do You Smoke? 0.5 PPD Information not available 08/03/2024 Sex: Unknown Functional Status Question Answer Note LastModified by Organizat ion Details LastModified Time Do you use any illicit or recreational drugs? No [email or web address] Information not available 08/03/2024 Do you or have you ever used any other forms of tobacco or nicotine? No [email or web address] Information not available 08/03/2024 What is your level of alcohol consumption? None [email or web address] Information not available 08/03/2024 Mental Status None recorded. Family History Relationship Description Onset Age of this Age Resolved Age Notes LastModified by Organization Details LastModified Time Father No current problems or disability [email or web address] Not available 07/10 10:29:23 Mother No current problems or disability [email or web address] Not available 07/10 10:29:23 Medical History No medical history recorded. Gynecological HistoryNo gynecological history recorded. Obstetrics History GPAL:G 0 P 0 0 0 0 Past Encounters Encounter ID Performer Location Encounter Start Date Encounter Closed Date Diagnosis/Indication Diagnosis SNOMED-CT Code Diagnosis ICD10 Code Diagnosis Note [id number] IESHA Escobar [address] [address] 03/12/2025 12:42:43 03/12/2025 13:14:20 Weight decreased 662634282 R63.4 Unintentio nal weight loss 378179187 R63.4 Health Concerns Section Related Observation LastModified by Organization Detai ls LastModified Time None Recorded Concern Status LastModified by Organization Details LastModified Time None Recorded Advance Directives Directive None Recorded Payers Insurance Date Sequence Insurance Name Policy Number Policy Desai Covered Member ID Desai Member ID Guarantor Name 03/12/2025 3 *SELF PAY* Carole Alva [place] Carole Alva 07/16/2024 1 *SELF PAY* Vida Alva 07/24/2024 2 [facility] MEDICARE [id number] Carole Alva [id number] Carole Alva 03/12/2025 1 [facility] [id number] Carole Alva [id number] Carole Alva 03/12/2025 [employer] [id number] Carole Alva [id number] Carole Alva Notes Date Note Type Note Provider Name and Address Organization Details Recorded Time 03/12/2025 text/html Call connected, patient greeted. Patient name, , telephone number and location verified verbally with the patient. Telemedicine limitations reviewed and verbal consent obtained to treat. Clinician attests they are physically located in the following state at the time of visit: [place]. CC: Abnormal weight loss HPI: Patient is a 74 year old female with increased weight loss hx, about 15 pounds over the last 2 months. Has recently had a bacterial illness, and followed with Oncology although medically cleared, Does have PCP follow up in 2 weeks. Amy Carr, [facility] [address] [facility] [address], [place], [address], [facility] - [facility] 03/12/2025 13:09:19 OBGyn Episode No OBEpisode recorded.
--- NOTE | 2025-04-14 19:11 | PC.NURSE ---
Pre-procedure instructions-called pt with instructions-arrival time 9am/ npo afternight 04/18/needs a ride to and from [facility]. Xarelto LD 04/15 Pm dose hold for two whole day (4 doses). Pt verbalize instructions.
[2025-04-18] VITALS (12 sets, daily range): BP systolic 84–123; BP diastolic 58–95; PULSE 68–77; RESP 10–22; TEMP 36.5–37; O2SAT 96–100; BMI 14.9
--- NOTE | ~2025-04-18 | XR_ITS ---
EXAMINATION: XR CHEST 1 VIEW HISTORY: post lung biopsy r/o pneumothorax COMPARISON: Comparison is made with the prior examination dated 02/22/2025. FINDINGS: Two AP portable views of the chest performed at 12:00 PM are submitted. The lungs remain hyperinflated, consistent with COPD. A masslike opacity is again seen at the left lung apex. No pneumothorax is seen. There is no pleural effusion or pulmonary vascular congestion. The heart is normal in size. The bones are intact. XR/XR chest 1V IMPRESSION: Right upper lobe mass as seen previously. No pneumothorax. Electronically signed by: Diaz Dominguez MD 04/18/2025 12:43 PM EDT
--- NOTE | ~2025-04-18 | CT_ITS ---
PROCEDURE: CT GUIDED BIOPSY, LUNG CLINICAL INFORMATION: Left upper lobe mass. COMPARISON: None available. TECHNIQUE: Following explaining CT fluoroscopy guided left upper lobe mass biopsy procedure, benefits and risk, a written consent was obtained. Patient was placed supine and prone in the CT imaging was obtained through the upper chest. An optimal axial image was obtained and markers placed along the left anterior chest wall and repeat CT imaging was performed. An optimal lead marker was selected and marked on the skin site. The marked skin site was cleaned and draped in usual sterile manner. 1% lidocaine was injected at puncture site. A 18-gauge guide needle was advanced from the skin and through the pleura into the left upper lobe consolidation/mass. Coaxially spring-loaded needle was advanced through the guide needle and a 3 pass core biopsy was performed. Postprocedure the guide needle was removed and complete hemostasis achieved at puncture site. Repeat CT imaging was performed. Conscious sedation was administered during exam and patient monitored by our nursing. This CT examination was performed using dose optimization techniques as appropriate, variously including the following: *Automated exposure control *Adjustment of mA and/or kV according to patient size (this includes techniques or standardized protocols for targeted exams where dose is matched to indication/reason for exam; i.e. extremities or head) *Use of iterative reconstruction technique DLP: 112 mGy/cm. FINDINGS: On preliminary CT imaging there is a left upper lobe consolidation with air bronchograms or cavitation. There is smaller consolidation/atelectasis/scarring in right upper lobe which has progressed since the last CT exam 12/20/2024. There is underlying severe emphysema. A [address] fluoroscopy guided core biopsy was performed. Post biopsy repeat CT imaging revealed no pneumothorax CT/CT biopsy lung LT IMPRESSION: Diffuse emphysema with left upper lobe consolidation and likely cavitation air bronchogram. New right upper lobe scarring and/or atelectasis. Successful CT fluoroscopy guided percutaneous left upper lobe mass biopsy performed. Fluoroscopy time: 112 mGy/cm. Electronically signed by: Clifton Choi MD 04/20/2025 03:07 PM EDT
[2025-04-18 09:30] LABS: INTERNATIONAL NORM RATIO 0.9 (0.9-1.1); Prothrombin Time 10.5 SEC (10.9-12.4)
== END 2025-04-18 14:00 | disposition home or self-care (01) ==
PROVIDERS: Radiology Diagnostic Radiology; PCP Family Medicine; Visit Provider Internal Medicine Medical Oncology
DX: J98.4 Other disorders of lung (principal); J85.0 Gangrene and necrosis of lung; A31.0 Pulmonary mycobacterial infection; R63.4 Abnormal weight loss; R53.83 Other fatigue; J44.9 Chronic obstructive pulmonary disease, unspecified; Z85.3 Personal history of malignant neoplasm of breast; Z92.3 Personal history of irradiation; Z85.41 Personal history of malignant neoplasm of cervix uteri; Z90.710 Acquired absence of both cervix and uterus; Z98.890 Other specified postprocedural states; Z79.51 Long term (current) use of inhaled steroids; F17.210 Nicotine dependence, cigarettes, uncomplicated
CPT/HCPCS: 32408; 36415; 71045; 85610; 88305; 88312; 99152; J2003; J2250; J3010

== ENCOUNTER → 2025-04-18 12:01 | Outpatient (BNV) | payer MEDICARE, SELFPAY | PROVIDERS: PCP Family Medicine; Visit Provider Radiology Diagnostic Radiology | DX: J44.9 Chronic obstructive pulmonary disease, unspecified (principal) | CPT/HCPCS: 71045 ==

== ENCOUNTER 2025-04-19 13:13 | Outpatient (AMB) | payer MEDICARE, SELFPAY ==
[2025-04-19 13:29] VITALS: BP 102/60; PULSE 81; O2SAT 96; BMI 14.4
--- NOTE | 2025-04-19 13:29 | A.OFFVIS_ITS ---
Vital Signs 04/19/25 13:29 Height 5 ft 6 in Weight 89 lb BMI 14.4 BP 102/60 Blood Pressure Location Lt brachial Position Sitting Pulse 81 Pulse Source Pulse Oximeter Pulse Oximetry (%) 96 Oxygen Delivery Method Room Air Intake Visit Reasons: Shortness of breath Allergies banana Allergy (Verified 04/19/25 13:36) headaches chocolate Allergy (Verified 04/19/25 13:36) hives codeine Allergy (Verified 04/19/25 13:36) runny nose Influenza Virus Vaccines Allergy (Verified 04/19/25 13:36) guillain-barre latex Allergy (Verified 04/19/25 13:36) itching, rash meperidine (From Demerol) Allergy (Verified 04/19/25 13:36) Unknown sertraline (From Zoloft) Allergy (Verified 04/19/25 13:36) Dizziness soy Allergy (Verified 04/19/25 13:36) swelling/edema beef Allergy (Uncoded 04/18/25 08:58) headaches cucumber Allergy (Uncoded 04/18/25 08:58) rhinitis demerol Allergy (Uncoded 04/18/25 08:58) unknown pork Allergy (Uncoded 04/18/25 08:58) intolerant HPI HPI Shortness of breath: Details: 74-year-old lady with underlying COPD and BAL cultures growing MAC, symptomatic with worsening cough. Continues on baseline COPD regimen of Trelegy, duo nebs, and albuterol MDI. Patient has been taken TIW azithromycin, rifampin, and ethambutol and is able to tolerate this regimen without side effects. Secondary to allergic component to her symptoms she was started on Dupixent with at least personal response. She denies recent exacerbations. She did have left upper lobe nodule percutaneous biopsy ordered by Oncology on 04/18/2025 with results pending. 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 Osteoporosis Multinodular thyroid History of cervical cancer Nicotine dependence, cigarettes, uncomplicated History of right breast cancer COPD (chronic obstructive pulmonary disease) Surgical History (Updated 11/03/24 @ 10:51 by Rashmi Sommer) History of partial mastectomy of right breast History of bronchoscopy History of hysterectomy History of breast augmentation History of appendectomy Family History (System 11/03/24 @ 10:51 by Rashmi Sommer) Father Prostate CA Social History (Updated 03/10/25 @ 15:34 by Mirlande Hernandez) Household Members: None Housing: House Are you a primary child care supervisor to a significant other at home: No Do you presently have visiting nurse or other home services: No Alcohol intake: current Alcohol intake frequency: holidays/special occasions only Alcohol type: wine Patient Tobacco Use Status: Current everyday Tobacco user Tobacco use type: Cigarette Cigarette Packs Per Day: 0.5 Cigarettes Per Day: 5 Years Smoked: 35 e-Cigarette/Vaping Use: Never Used service: No Current occupational status: employed and retired Cognitive needs: No Hearing needs: No Vision needs: Yes Review of Systems Const Denies daytime sleepiness, Denies excessive sweating, Denies fatigue, Denies fever(s), Denies lethargy, Denies malaise, Denies night sweats, Denies snoring and Denies weight loss Eyes Denies blurry vision and Denies itchy eyes ENT Denies nasal congestion, Denies post nasal drip, Denies sinus pain, Denies sinus pressure and Denies other ( Thrush) Card Denies chest pain, Denies pedal edema, Denies dyspnea, Denies orthopnea and Denies paroxysmal nocturnal dyspnea Resp Reports cough, Denies hemoptysis, Denies excessive phlegm production, Denies dyspnea, Denies snoring and Denies wheezing GI Denies abdominal pain and Denies heartburn Musc Denies myalgias, Denies arthralgias and Denies joint swelling Skin/Breast Denies rash Neuro Denies memory loss and Denies seizure-like activity Psych Denies abnormal sleep pattern, Denies anxiety and Denies memory loss Endo Denies excessive sweating, Denies fatigue and Denies heat intolerance Estuardo/Lymph Denies easy bruising Aller/Immun Denies itchy eyes, Denies seasonal rhinorrhea and Denies wheezing Physical Exam Vital Signs: Last Vital Signs Pulse 81 04/19/25 13:29 BP 102/60 04/19/25 13:29 Pulse Ox 96 04/19/25 13:29 Oxygen Delivery Method Room Air 04/19/25 13:29 BMI result Body Mass Index 14.4 Const General: no acute distress and alert Nutritional Appearance: thin Orientation/consciousness: Other orientation findings ( oriented) HEENT Head: Yes atraumatic Eyes General: appearance normal, both eyes and all related structures Sclerae: sclerae normal EOM: EOMs intact bilaterally Neck Neck: Yes supple Lymphatic: no lymphadenopathy noted Resp Effort & Inspection: normal respiratory effort and no use of accessory muscles Auscultation: clear to auscultation bilaterally Cardio Rate: regular rate Rhythm: regular rhythm Heart sounds: no gallops, no murmurs and no rubs Skin General skin exam: other ( warm) Extrem General: No clubbing, No cyanosis and No edema Assessment & Plan Assessment & Plan (1) Asthma-COPD overlap syndrome: Code(s): J44.89 - Other specified chronic obstructive pulmonary disease Category: Medical Plan: Reasonable control on Breztri, prednisone 10 mg daily, duo nebs, Dupixent, and albuterol MDI. Continue current regimen. (2) Mycobacterium avium complex: Code(s): A31.0 - Pulmonary mycobacterial infection Category: Medical Plan: Continues on 3 drug regimen including azithromycin ethambutol, and rifampin, to complete 15 months of therapy. (3) Environmental allergies: Code(s): Z91.09 - Other allergy status, other than to drugs and biological substances Category: Medical Plan: Improved control on Dupixent. Continue current regimen. Coding Level of Care Code Est Pt Level 4 (48633) Complex EM visit Add On G2211 Diagnoses Asthma-COPD overlap syndrome J44.89 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 Environmental allergies Z91.09
--- OUTSIDE RECORDS SUMMARY | 2025-04-19 14:02 | XMS_ITS | Clinical Summary ---
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 The [facility] Department of Internal Medicine recommends [...] Sandoval should beclassified as having osteoporosis. The [facility] Department of Internal Medicine recommendsusing [...] AM EDT Narrative 06/27/2023 6:12 AM EDT [facility] Diagnostic Imaging Department [address] [place] [address] Patient: CAROLE SANDOVAL /Age/Sex: 1950 - 72 - F Unit#: [id number] Location/Status: CHRISTINE/DEMAR I Mnemonic/Ordering Site: [facility] Ordering Physician: JAREK PERKINS MD [...] Procedure Note Eli Dowling MD - 10/14/2023 [facility] Diagnostic Imaging Department [address] [place] [address] Patient: LORICAROLE./Age/Sex: 1950 - 72 - F Unit#: [id number] Location/Status: SPDICATLS/REG CLI Mnemonic/Ordering Site: [facility] Ordering Physician: JAREK PERKINS MD CT [...] Documents on File Type Date Recorded Patient 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
== END 2025-04-19 13:51 | disposition home or self-care (01) ==
LOC: HO.HPS 13:14
PROVIDERS: PCP Family Medicine; Visit Provider Internal Medicine Pulmonary Disease
DX: J44.89 Other specified chronic obstructive pulmonary disease (principal); A31.0 Pulmonary mycobacterial infection; Z91.09 Other allergy status, other than to drugs and biological substances
CPT/HCPCS: 99214; G2211

== ENCOUNTER → 2025-04-19 13:13 | Outpatient (BNVA) | payer MEDICARE, SELFPAY | PROVIDERS: PCP Family Medicine; Visit Provider Internal Medicine Pulmonary Disease | DX: R06.02 Shortness of breath (principal); J44.89 Other specified chronic obstructive pulmonary disease; A31.0 Pulmonary mycobacterial infection; Z91.09 Other allergy status, other than to drugs and biological substances | CPT/HCPCS: 99212 ==

== ENCOUNTER 2025-06-08 09:05 | Outpatient (AMB) | payer MEDICARE, SELFPAY ==
--- NOTE | 2025-06-08 09:13 | A.OFFPC_ITS ---
Vital Signs 06/08/25 09:21 Height 5 ft 6 in Weight 93 lb 6 oz BMI 15.1 BP 100/54 L Blood Pressure Location Lt brachial Position Sitting Respiration 17 Pulse 70 Pulse Source Pulse Oximeter Temp 97.9 F Temp Source Temporal Artery Scan Pulse Oximetry (%) 97 Oxygen Delivery Method Room Air Intake Visit Reasons: f/u chronic conditions Intake Note: Carole presents in the office today for a follow up to her chronic conditions. Allergies banana Allergy (Verified 06/08/25 09:16) headaches chocolate Allergy (Verified 06/08/25 09:16) hives codeine Allergy (Verified 06/08/25 09:16) runny nose Influenza Virus Vaccines Allergy (Verified 06/08/25 09:16) guillain-barre latex Allergy (Verified 06/08/25 09:16) itching, rash meperidine (From Demerol) Allergy (Verified 06/08/25 09:16) Unknown sertraline (From Zoloft) Allergy (Verified 06/08/25 09:16) Dizziness soy Allergy (Verified 06/08/25 09:16) swelling/edema beef Allergy (Uncoded 06/08/25 09:16) headaches cucumber Allergy (Uncoded 06/08/25 09:16) rhinitis demerol Allergy (Uncoded 06/08/25 09:16) unknown pork Allergy (Uncoded 06/08/25 09:16) intolerant Tobacco use date assessed: 06/08/25 Fall risk assessment: No Falls in past year Last assessed Fall Risk: 06/08/25 Dental Screening Dental Screen Date: 06/08/25 Did you have a dental visit in the last 12 months?: No Did you have a dental problem in the last 6 months where you did not have access to dental care?: No Was dental information given to patient?: Patient declined HPI f/u chronic conditions HPI Details 74 y/o female presents to f/u chronic co nditions. Hx of breast cancer. Has been following up with Dr. José Miguel Arita. Recent results have come back negative. Has gained a bit of weight since March. Pt notes she does feel improved. She continues antibiotic therapy for mycobacterial infection. 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 Osteoporosis Multinodular thyroid History of cervical cancer Nicotine dependence, cigarettes, uncomplicated History of right breast cancer COPD (chronic obstructive pulmonary disease) Surgical History (Updated 11/03/24 @ 10:51 by Rashmi Sommer) History of partial mastectomy of right breast History of bronchoscopy History of hysterectomy History of breast augmentation History of appendectomy Family History (Updated 06/08/25 @ 09:21 by Demetria Clark [facility]) Father Prostate CA Mother FH: mental illness Bipolar 1 disorder Sister Substance abuse Drug abuse Social History (Updated 06/08/25 @ 09:21 by Demetria Clark [facility]) Household Members: None Housing: House Are you a primary resident care manager rn to a significant other at home: No Do you presently have visiting nurse or other home services: No Alcohol intake: current Alcohol intake frequency: holidays/special occasions only Alcohol type: wine Patient Tobacco Use Status: Current everyday Tobacco user Tobacco use type: Cigarette Cigarette Packs Per Day: 0.5 Cigarettes Per Day: 5 Years Smoked: 35 e-Cigarette/Vaping Use: Never Used Second Hand Smoke Exposure: No service: No Current occupational status: employed and retired Cognitive needs: No Hearing needs: No Vision needs: Yes Questionnaire PHQ-9 Over the last 2 weeks, how often have you been bothered by any of the following problems? 3. Trouble falling or staying asleep, or sleeping too much: several days Source: Developed by Drs. Diaz Elizabeth, Nicolasa Nogueira, Kelton Andersen and colleagues, with an educational izabela from [employer]. Thrive Questionnaire Date Thrive assessed: 04/05/25 I am a: Patient What is your living situation today?: I have a steady place to live Within the past 12 months, did the food you bought not last and you didn't have the money to get more?: Sometimes True Within the past 12 months, did you worry whether your food would run out before you got money to buy more?: Sometimes True Do you have trouble paying for medicines?: No Do you have trouble getting transportation to medical appointments?: No Do you have trouble paying your heating and electricity bill?: No Do you have trouble taking care of your child, family member or friend?: No Do you have trouble with day-to-day activities such as bathing, preparing meals, shopping, managing finances, etc.?: No Are you currently unemployed and looking for a job?: No Are you interested in more education?: No Please select the resources that you would like help with: Food Currently or been in a relationship where the following occur: No concerns reported THRIVE Score: 2 LAWRENCE-7 AMB Questionnaire LAWRENCE-7 Date LAWRENCE - 7 assessed: 02/04/25 Source: Developed by Drs. Diaz Elizabeth, Nicolasa Nogueira, Kelton Andersen and colleagues, with an educational izabela from [employer]. Review of Systems Const Denies chills, Denies fatigue, Denies fever(s), Denies headache(s) and Denies weakness ENT Denies dizziness and Denies headache(s) Card Denies dyspnea Resp Denies cough, Denies dyspnea, Denies wheezing and Denies other (shortness of breath) Musc Denies numbness and Denies tingling Neuro Denies dizziness, Denies headache(s), Denies numbness, Denies tingling and Denies weakness Psych Denies anxiety and Denies depression Endo Denies fatigue Aller/Immun Denies wheezing Physical exam (Primary Care) Vital Signs: Last Vital Signs Temp 97.9 F 06/08/25 09:21 Pulse 70 06/08/25 09:21 Resp 17 06/08/25 09:21 BP 100/54 L 06/08/25 09:21 Pulse Ox 97 06/08/25 09:21 Oxygen Delivery Method Room Air 06/08/25 09:21 BMI result Body Mass Index 15.1 Tobacco/Smoking Status: Tobacco use Status Tobacco use date assessed 06/08/25 06/08/25 09:25 Patient Tobacco Use Status Current everyday Tobacco 06/08/25 09:21 Tobacco use type Cigarette 06/08/25 09:21 e-Cigarette/Vaping Use Never Used 06/08/25 09:21 Thrive Assessment: Date of Thrive Assessment Date Thrive assessed 04/05/25 06/08/25 09:15 Currently or been in a relationship where the following occur: No concerns reported Const General: well developed; No acute distress Nutritional Appearance: well nourished and underweight Orientation/consciousness: patient oriented x3 HENMT Head: Yes normocephalic and Yes atraumatic Eyes General: appearance normal, both eyes and all related structures Pupils: Equal, round and reactive pupils present EOM: EOMs intact bilaterally Resp Effort & Inspection: normal respiratory effort Neuro General: patient oriented x3 and gait normal Cranial nerves: Yes Equal, round and reactive pupils present Psych Affect: normal affect Coding Level of Care Code Est Pt Level 3 (23445) Diagnoses 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 Lung nodules R91.8 Underweight R63.6 Assessment & Plan Assessment & Plan (1) Mycobacterium avium complex: Code(s): A31.0 - Pulmonary mycobacterial infection Category: Medical (2) Lung nodules: Code(s): R91.8 - Other nonspecific abnormal finding of lung field Category: Medical (3) Underweight: Code(s): R63.6 - Underweight Category: Medical Plan MAC infection and patient remains on 3 antibiotic therapy. Tolerating very well. Lungs are clear to auscultation and she is breathing well today. Continue current medication regimen. Improving. Follow-up with Pulmonary Medicine as recommended Continue inhaled medications She has gained about 10 lb since March. Had been concerned for malignancy given significant weight loss and nodules seen on imaging. Biopsy showed no malignancy. Continue cyproheptadine and supplement drinks. Orders: Orders Complete Blood Count Auto Diff Today Z00.00 - Encounter for general adult medical examination without abnormal findings Lipid Panel Today Z00.00 - Encounter for general adult medical examination without abnormal findings UA CC w/rflx Micro + Cult Today Z00.00 - Encounter for general adult medical examination without abnormal findings Comprehensive [place]. Panel Fast Today Z00.00 - Encounter for general adult medical examination without abnormal findings Microalbumin, Random (w Creat) Today I10 - Essential (primary) hypertension TSH reflex Free T4 Today Z00.00 - Encounter for general adult medical examination without abnormal findings Vitamin D 25-OH Total Today E55.9 - Vitamin D deficiency, unspecified Medications: Changed From azelastine administer into each nostril 1 spray intranasal .daily x1 To azelastine administer into each nostril 1 spray intranasal .daily x1 30 mL 3RF 30 days
[2025-06-08 09:21] VITALS: BP 100/54; PULSE 70; RESP 17; TEMP 36.6; O2SAT 97; BMI 15.1
--- OUTSIDE RECORDS SUMMARY | 2025-06-08 09:47 | XMS_ITS | Clinical Summary ---
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; COMMENT: 2016 Covid-19 12/21/2020 DX:COVID-19; COM MENT: 10/30 Gallstones DX:Gallstones COPD (chronic obstructive pu lmonary disease) ([facility]/HCC V24, [facility]/HCC V28) DX:COPD (chronic o bstructive pulmonary disease) ([facility]) Family History Medical History Relation Name Comments Prostate cancer Father mets to the bone Dementia Mother Other: cyst of brain Son Lung cancer Neg Hx Relation Name Status Comments Brother Father Mother Son Alive Social History Tobacco Use Types Packs/Day Years Used Date Smoking Tobacco: Every Day Cigarettes 0.5 52.7 Started: 09/08/1972 Smokeless Tobacco: Never Alcohol Use [...] Health Maintenance Due Date Last Done Comments Colorectal Cancer Screening: Colonoscopy 1950 DTaP,Tdap,and Td Vaccines (1 - Tdap) 1971 Pneumococcal Vaccine: 50+ Years (1 of 2 - PCV) 1971 Zoster Vaccines (1 of 2) 2002 RSV Immunization Adult Patients (1 - Risk 60-74 years 1-dose series) 2012 Falls Risk Assessment 08/17/2022 Hepatitis C Screening 08/17/2022 Social Influencers of Health Screening 08/17/2022 Depression Screening 09/08/2024 COVID-19 Vaccine ( season) 2025 01/29/2022, 06/28/2021, 06/09/2021, Additional history exists Influenza [...] classified as having osteoporosis. The [facility] Department of Internal Medicine recommends using National [...] beclassified as having osteoporosis. The [facility] Department of Internal Medicine recommendsusing National Osteoporosis [...] [facility] Diagnostic Imaging Department [address] [place] [address] Patient: CAROLE SANDOVAL /Age/Sex: 1950 - 72 - F Unit#: [id number] Location/Status: CHRISTINE/DEMAR I Mnemonic/Ordering Site: [facility] Ordering Physician: JAREK PERKINS MD CT Lung [...] [facility] Diagnostic Imaging Department [address] [place] [address] Patient: LORICAROLE./Age/Sex: 1950 - 72 - F Unit#: [id number] Location/Status: SPDICATLS/REG CLI Mnemonic/Ordering Site: [facility]/SP[facility] Ordering Physician: JAREK PERKINS MD CT [...] Documents on File Type Date Recorded 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
== END 2025-06-08 09:56 | disposition home or self-care (01) ==
LOC: HO.HMCFM 09:06
PROVIDERS: PCP Family Medicine; Visit Provider Family Medicine
DX: A31.0 Pulmonary mycobacterial infection (principal); R91.8 Other nonspecific abnormal finding of lung field; R63.6 Underweight

== ENCOUNTER → 2025-06-08 09:05 | Outpatient (BNVA) | payer MEDICARE, SELFPAY | PROVIDERS: PCP Family Medicine; Visit Provider Family Medicine | DX: R63.6 Underweight (principal); R91.8 Other nonspecific abnormal finding of lung field; A31.0 Pulmonary mycobacterial infection; I10 Essential (primary) hypertension; E55.9 Vitamin D deficiency, unspecified | CPT/HCPCS: 99212 ==

== ENCOUNTER 2025-07-12 10:05 | Outpatient (AMB) | payer MEDICARE, SELFPAY ==
--- OUTSIDE RECORDS SUMMARY | 2025-07-06 10:08 | XMS_ITS | Continuity of Care Document ---
Author Organization [facility] Address [address] [place] [address] [address] [place] [address] Phone Care Team Providers Care Registered Nurse Cardiac Telemetry Name Role Phone Yamil SILVA, LACEY, Diaz QUINTERO Unavailable U navailable Allergies, Adverse Reactions, Alerts Substance Reaction Status Criticality MEPERIDINE HCL Active No Informatio n codeine Active No Information Procedures Procedure Date Office/Oupt E&M New Pt 30 Mins- CT & [place] Surgical Stockings Duomed Knee High 15-2 0 Duplex Scan-extrem Veins; Comp- CT & [place] PT Did Not Receive Services Advance Directives Directive Yes / No Effective Date File Name No Information Encounters Encounter Description Practice Location Reason(s) For Visit Diagnoses Date Provider Providers Copied on Encounter [facility], [address] [place] [address] [address] [place], [id number], [place] tel:[phone] CVR - [facility] No Information 5 Yamil SILVA, LEON RAHMAN. [address], [place], [place], [id number] , [place]. tel:[phone] Office/Oupt E&M New Pt 30 Mins- CT & [place] [facility], [address] [place] [address] [address] [place], [id number], tel:[phone] [facility] [place] Pain in left legHereditary lymphedemaVaric ose veins of right lower extremity with other complicationsPa in in right lower legPain in left lower legRestless legs syndromeLymphed trista, not elsewhere classifiedCramp and spasmLocalized edema 5 Yamil SILVA RVT, LEON Perales. [address] [facility], [address], [facility], [place], [id number] , [place]. tel:[phone] Referring Provider: Yusuf Motley MD [address] [facility] [address], [place], [address]. tel:[phone] [facility], [address] [place] [address] [address], [place], [id number], [place] tel:[phone] CVR [facility] Chronic venous hypertension (idiopathic) with other complications of bilateral lower extremity 5 Yamil SILVA RVT, LEON Perales. [address] [address], [facility] [place], [place], [id number] , [place]. [phone] [facility], [address] [place] [address] [address], [place], [id number], [place] tel:[phone] CVR - [facility] No Information 5 Yamil SILVA RVT, LEON Perales. [address] [facility], [place] [address], [facility] [place], [place], [id number] , [place]. [phone] Family History Family Member Type Diagnosis Age At Onset No Information Payers Payer name Insurance type Covered alliance party ID Authoriza tion(s) [employer] Medicare CI [id number] Social History Type Description Quantity Date Captured Comments Sex Female Smoking Status No Information Chief Complaint And Reason For Visit No Information Reason For Referral Reason For Referral No Information Plan Of Treatment Date Type Action Status Goal Tobacco cessation counseling completed History Of Present Illness Encounter Date Complaint History Of Prese nt Illness No Information Functional Status Date Functional Assessmen t No Information Instructions Date Instruction Additional Infor mation Patient education booklet given Related to Varicose veins of right lower extremity with other complications Pre and post instruc tions reviewed and provided Related to Varicose veins of right lower extremity with other complications Assessments Type Assessment Date No Information Patient Care Teams Name Effective Dates (start - stop) Status Members No Information
[2025-07-12 10:11] VITALS: BP 102/67; PULSE 75; O2SAT 95; BMI 15.2
--- NOTE | 2025-07-12 10:11 | A.OFFVIS_ITS ---
Vital Signs 07/12/25 10:11 Height 5 ft 6 in Weight 94 lb BMI 15.2 BP 102/67 Blood Pressure Location Lt brachial Position Sitting Pulse 75 Pulse Source Pulse Oximeter Pulse Oximetry (%) 95 Oxygen Delivery Method Room Air Intake Visit Reasons: COPD/Med Reaction Allergies banana Allergy (Verified 06/08/25 09:16) headaches chocolate Allergy (Verified 06/08/25 09:16) hives codeine Allergy (Verified 06/08/25 09:16) runny nose Influenza Virus Vaccines Allergy (Verified 06/08/25 09:16) guillain-barre latex Allergy (Verified 06/08/25 09:16) itching, rash meperidine (From Demerol) Allergy (Verified 06/08/25 09:16) Unknown sertraline (From Zoloft) Allergy (Verified 06/08/25 09:16) Dizziness soy Allergy (Verified 06/08/25 09:16) swelling/edema beef Allergy (Uncoded 06/08/25 09:16) headaches cucumber Allergy (Uncoded 06/08/25 09:16) rhinitis demerol Allergy (Uncoded 06/08/25 09:16) unknown pork Allergy (Uncoded 06/08/25 09:16) intolerant HPI HPI COPD/Med Reaction: Details: 74-year-old lady with underlying COPD and BAL cultures growing MAC, symptomatic with worsening cough. Continues on baseline COPD regimen of Trelegy, duo nebs, and albuterol MDI. Patient has been taken TIW azithromycin, rifampin, and ethambutol and is able to tolerate this regimen without side effects. Secondary to allergic component to her symptoms she was started on Dupixent with at least personal response. She denies recent exacerbations. She did have left upper lobe nodule percutaneous biopsy ordered by Oncology on 04/18/2025 with results pending. After the last office visit patient has developed Khurram vision in her right eye for the last 5 days. She has stopped her ethambutol at this time. She denies worsening of underlying cough. 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 Osteoporosis Multinodular thyroid History of cervical cancer Nicotine dependence, cigarettes, uncomplicated History of right breast cancer COPD (chronic obstructive pulmonary disease) Surgical History (Updated 11/03/24 @ 10:51 by Rashmi Sommer) History of partial mastectomy of right breast History of bronchoscopy History of hysterectomy History of breast augmentation History of appendectomy Family History (Updated 06/08/25 @ 09:21 by Demetria Clark CMA) Father Prostate CA Mother FH: mental illness Bipolar 1 disorder Sister Substance abuse Drug abuse Social History (Updated 06/08/25 @ 09:21 by Demetria Clark CMA) Household Members: None Housing: House Are you a primary adult care manager to a significant other at home: No Do you presently have visiting nurse or other home services: No Alcohol intake: current Alcohol intake frequency: holidays/special occasions only Alcohol type: wine Patient Tobacco Use Status: Current everyday Tobacco user Tobacco use type: Cigarette Cigarette Packs Per Day: 0.5 Cigarettes Per Day: 5 Years Smoked: 35 e-Cigarette/Vaping Use: Never Used Second Hand Smoke Exposure: No service: No Current occupational status: employed and retired Cognitive needs: No Hearing needs: No Vision needs: Yes Review of Systems Const Denies daytime sleepiness, Denies excessive sweating, Denies fatigue, Denies f ever(s), Denies lethargy, Denies malaise, Denies night sweats, Denies snoring and Denies weight loss Eyes Reports blurry vision and Denies itchy eyes ENT Denies nasal congestion, Denies post nasal drip, Denies sinus pain, Denies sinus pressure and Denies other ( Thrush) Card Denies chest pain, Denies pedal edema, Denies dyspnea, Denies orthopnea and Denies paroxysmal nocturnal dyspnea Resp Reports cough, Denies hemoptysis, Denies excessive phlegm production, Denies dyspnea, Denies snoring and Denies wheezing GI Denies abdominal pain and Denies heartburn Musc Denies myalgias, Denies arthralgias and Denies joint swelling Skin/Breast Denies rash Neuro Denies memory loss and Denies seizure-like activity Psych Denies abnormal sleep pattern, Denies anxiety and Denies memory loss Endo Denies excessive sweating, Denies fatigue and Denies heat intolerance Estuardo/Lymph Denies easy bruising Aller/Immun Denies itchy eyes, Denies seasonal rhinorrhea and Denies wheezing Physical Exam Vital Signs: Last Vital Signs Pulse 75 07/12/25 10:11 BP 102/67 07/12/25 10:11 Pulse Ox 95 07/12/25 10:11 Oxygen Delivery Method Room Air 07/12/25 10:11 BMI result Body Mass Index 15.2 Const General: no acute distress and alert Nutritional Appearance: not obese Orientation/consciousness: Other orientation findings ( oriented) HEENT Head: Yes atraumatic Eyes General: appearance normal, both eyes and all related structures Sclerae: sclerae normal EOM: EOMs intact bilaterally Neck Neck: Yes supple Lymphatic: no lymphadenopathy noted Resp Effort & Inspection: normal respiratory effort and no use of accessory muscles Auscultation: clear to auscultation bilaterally Cardio Rate: regular rate Rhythm: regular rhythm Heart sounds: no gallops, no murmurs and no rubs Skin General skin exam: other ( warm) Extrem General: No clubbing, No cyanosis and No edema Assessment & Plan Assessment & Plan (1) Mycobacterium avium complex: Code(s): A31.0 - Pulmonary mycobacterial infection Category: Medical Plan: Now with development of blurry vision in the right eye likely secondary to and affect off ethambutol. Ethambutol discontinued. Will reassess symptoms in 2-3 weeks, and if worsening will consider adding moxifloxacin. Continue t.i.w. azithromycin and rifampin. (2) Asthma-COPD overlap syndrome: Code(s): J44.89 - Other specified chronic obstructive pulmonary disease Category: Medical Plan: Reasonable control on current regimen of Breztri, duo nebs, Dupixent, and albuterol MDI/nebs. Continue current regimen. (3) Environmental allergies: Code(s): Z91.09 - Other allergy status, other than to drugs and biological substances Category: Medical Plan: Reasonable control on Dupixent. Continue current regimen. Coding Level of Care Code Est Pt Level 4 (27424) Complex EM visit Add On G2211 Diagnoses 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 Asthma-COPD overlap syndrome J44.89 Environmental allergies Z91.09
--- OUTSIDE RECORDS SUMMARY | 2025-07-12 11:43 | XMS_ITS | Clinical Summary ---
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; COMMENT: 2016 Covid-19 12/21/2020 DX:COVID-19; COM MENT: 10/30 Gallstones DX:Gallstones COPD (chronic obstructive pu lmonary disease) ([facility]/HCC V24, [facility]/HCC V28) DX:COPD (chronic o bstructive pulmonary disease) ([facility]) Family History Medical History Relation Name Comments Prostate cancer Father mets to the bone Dementia Mother Other: cyst of brain Son Lung cancer Neg Hx Relation Name Status Comments Brother Father Mother Son Alive Social History Tobacco Use Types Packs/Day Years Used Date Smoking Tobacco: Every Day Cigarettes 0.5 52.8 Started: 09/08/1972 Smokeless Tobacco: Never Alcohol Use [...] Years (1 of 2 - PCV) 1971 RSV Immunization Adult Patients (1 - Risk 50-74 years 1-dose series) 2002 Zoster Vaccines (1 of 2) 2002 Falls Risk Assessment 08/17/2022 Hepatitis C Screening [...] should be classified as having osteoporosis. The [facility] Department of Internal Medicine recommends [...] [place] should beclassified as having osteoporosis. The [facility] Department of Internal Medicine recommendsusing [...] EDT Narrative 06/27/2023 6:12 AM EDT [facility] Diagnostic Imaging Department [address] [place] [address] Patient: CAROLE SANDOVAL /Age/Sex: 1950 - 72 - F Unit#: [id number] Location/Status: CHRISTINE/DEMAR I Mnemonic/Ordering Site: [facility] Ordering Physician: JAREK PERKINS MD [...] Note Eli Dowling MD - 10/14/2023 [facility] Diagnostic Imaging Department [address] [place] [address] Patient: LORICAROLE./Age/Sex: 1950 - 72 - F Unit#: [id number] Location/Status: SPDICATLS/REG CLI Mnemonic/Ordering Site: [facility] Ordering Physician: JAREK PERKINS MD CT Lung [...] Documents on File Type Date Recorded 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
== END 2025-07-12 10:33 | disposition home or self-care (01) ==
LOC: HO.HPS 10:05
PROVIDERS: PCP Family Medicine; Visit Provider Internal Medicine Pulmonary Disease
DX: A31.0 Pulmonary mycobacterial infection (principal); J44.89 Other specified chronic obstructive pulmonary disease; Z91.09 Other allergy status, other than to drugs and biological substances
CPT/HCPCS: 99214; G2211

== ENCOUNTER → 2025-07-12 10:05 | Outpatient (BNVA) | payer MEDICARE, SELFPAY | PROVIDERS: PCP Family Medicine; Visit Provider Internal Medicine Pulmonary Disease | DX: A31.0 Pulmonary mycobacterial infection (principal); J44.89 Other specified chronic obstructive pulmonary disease; Z91.09 Other allergy status, other than to drugs and biological substances | CPT/HCPCS: 99212 ==

== ENCOUNTER 2025-08-15 11:08 | Outpatient (AMB) | payer MEDICARE, SELFPAY ==
[2025-08-15 11:37] VITALS: BP 82/52; PULSE 89; O2SAT 96; BMI 15.8
--- NOTE | 2025-08-15 11:37 | A.OFFVIS_ITS ---
Vital Signs 08/15/25 11:37 Height 5 ft 6 in Weight 98 lb BMI 15.8 BP 82/52 L Blood Pressure Location Lt brachial Pulse 89 Pulse Source Pulse Oximeter Pulse Oximetry (%) 96 Oxygen Delivery Method Room Air Intake Visit Reasons: copd Allergies banana Allergy (Verified 08/15/25 11:45) headaches chocolate Allergy (Verified 08/15/25 11:45) hives codeine Allergy (Verified 08/15/25 11:45) runny nose Influenza Virus Vaccines Allergy (Verified 08/15/25 11:45) guillain-barre latex Allergy (Verified 08/15/25 11:45) itching, rash meperidine (From Demerol) Allergy (Verified 08/15/25 11:45) Unknown sertraline (From Zoloft) Allergy (Verified 08/15/25 11:45) Dizziness soy Allergy (Verified 08/15/25 11:45) swelling/edema beef Allergy (Uncoded 06/08/25 09:16) headaches cucumber Allergy (Uncoded 06/08/25 09:16) rhinitis demerol Allergy (Uncoded 06/08/25 09:16) unknown pork Allergy (Uncoded 06/08/25 09:16) intolerant HPI HPI copd: Details: 74-year-old lady, current 25+ pack-year smoker, with underlying COPD and BAL cultures growing MAC, symptomatic with worsening cough. Continues on baseline COPD regimen of Trelegy, duo nebs, and albuterol MDI. Patient has been taken TIW azithromycin, rifampin, and ethambutol and is able to tolerate this regimen without side effects. Secondary to allergic component to her symptoms she was started on Dupixent with at least personal response. She denies recent exacerbations. She did have left upper lobe nodule percutaneous biopsy ordered by Oncology on 04/18/2025 with results pending. In July of 2025 patient developed changes of vision in her right eye. She has stopped her ethambutol and her visual symptoms resolved. However, now she has been with worsening prod uctive cough with poor response to Levaquin course. 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 Osteoporosis Multinodular thyroid History of cervical cancer Nicotine dependence, cigarettes, uncomplicated History of right breast cancer COPD (chronic obstructive pulmonary disease) Surgical History (Updated 11/03/24 @ 10:51 by Rashmi Sommer) History of partial mastectomy of right breast History of bronchoscopy History of hysterectomy History of breast augmentation History of appendectomy Family History (Updated 06/08/25 @ 09:21 by Demetria Clark CMA) Father Prostate CA Mother FH: mental illness Bipolar 1 disorder Sister Substance abuse Drug abuse Social History (Updated 06/08/25 @ 09:21 by Demetria Clark CMA) Household Members: None Housing: House Are you a primary residential care facility manager to a significant other at home: No Do you presently have visiting nurse or other home services: No Alcohol intake: current Alcohol intake frequency: holidays/special occasions only Alcohol type: wine Patient Tobacco Use Status: Current everyday Tobacco user Tobacco use type: Cigarette Cigarette Packs Per Day: 0.5 Cigarettes Per Day: 5 Years Smoked: 35 e-Cigarette/Vaping Use: Never Used Second Hand Smoke Exposure: No service: No Current occupational status: employed and retired Cognitive needs: No Hearing needs: No Vision needs: Yes Review of Systems Const Denies daytime sleepiness, Denies excessive sweating, Denies fatigue, Denies fever(s), Denies lethargy, Denies malaise, Denies night sweats, Denies snoring and Denies weight loss Eyes Denies blurry vision and Denies itchy eyes ENT Denies nasal congestion, Denies post nasal drip, Denies sinus pain, Denies sinus pressure and Denies other ( Thrush) Card Denies chest pain, Denies pedal edema, Denies dyspnea, Denies orthopnea and Denies paroxysmal nocturnal dyspnea Resp Reports cough, Denies hemoptysis, Reports excessive phlegm production, Denies dyspnea, Denies snoring and Denies wheezing GI Denies abdominal pain and Denies heartburn Musc Denies myalgias, Denies arthralgias and Denies joint swelling Skin/Breast Denies rash Neuro Denies memory loss and Denies seizure-like activity Psych Denies abnormal sleep pattern, Denies anxiety and Denies memory loss Endo Denies excessive sweating, Denies fatigue and Denies heat intolerance Estuardo/Lymph Denies easy bruising Aller/Immun Denies itchy eyes, Denies seasonal rhinorrhea and Denies wheezing Physical Exam Vital Signs: Last Vital Signs Pulse 89 08/15/25 11:37 BP 82/52 L 08/15/25 11:37 Pulse Ox 96 08/15/25 11:37 Oxygen Delivery Method Room Air 08/15/25 11:37 BMI result Body Mass Index 15.8 Const General: no acute distress and alert Nutritional Appearance: not obese Orientation/consciousness: Other orientation findings ( oriented) HEENT Head: Yes atraumatic Eyes General: appearance normal, both eyes and all related structures Sclerae: sclerae normal EOM: EOMs intact bilaterally Neck Neck: Yes supple Lymphatic: no lymphadenopathy noted Resp Effort & Inspection: normal respiratory effort and no use of accessory muscles Auscultation: clear to auscultation bilaterally Cardio Rate: regular rate Rhythm: regular rhythm Heart sounds: no gallops, no murmurs and no rubs Skin General skin exam: other ( warm) Extrem General: No clubbing, No cyanosis and No edema Assessment & Plan Assessment & Plan (1) Mycobacterium avium complex: Code(s): A31.0 - Pulmonary mycobacterial infection Category: Medical Plan: Significant side effects from ethambutol, ethambutol stopped. Continues on rifampin and azithromycin TIW. (2) Asthma-COPD overlap syndrome: Code(s): J44.89 - Other specified chronic obstructive pulmonary disease Category: Medical Plan: Well controlled on current regimen of Breztri, Dupixent, duo nebs, and albuterol MDI. Continue current regimen. (3) Nicotine dependence, cigarettes, uncomplicated: Code(s): F17.210 - Nicotine dependence, cigarettes, uncomplicated Category: Medical Plan: Referred to lung cancer screening program. Orders: Orders Sputum Cult + Gram stain Today R05.9 - Cough, unspecified Fungus Cult Other Today R05.9 - Cough, unspecified Acid-fast Culture + Smear Today R05.9 - Cough, unspecified Coding Level of Care Code Complex visit Add On G2211 Diagnoses 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 Asthma-COPD overlap syndrome J44.89 Nicotine dependence, cigarettes, uncomplicated F17.210
== END 2025-08-15 11:55 | disposition home or self-care (01) ==
LOC: HO.HPS 11:09
PROVIDERS: PCP Family Medicine; Visit Provider Internal Medicine Pulmonary Disease
DX: A31.0 Pulmonary mycobacterial infection (principal); J44.89 Other specified chronic obstructive pulmonary disease; F17.210 Nicotine dependence, cigarettes, uncomplicated
CPT/HCPCS: 99214; G2211

== ENCOUNTER → 2025-08-15 11:08 | Outpatient (BNVA) | payer MEDICARE, SELFPAY | PROVIDERS: PCP Family Medicine; Visit Provider Internal Medicine Pulmonary Disease | DX: A31.0 Pulmonary mycobacterial infection (principal); J44.89 Other specified chronic obstructive pulmonary disease; F17.210 Nicotine dependence, cigarettes, uncomplicated; Z79.2 Long term (current) use of antibiotics; Z79.899 Other long term (current) drug therapy | CPT/HCPCS: 99212 ==

== ENCOUNTER 2025-08-18 12:05 | Outpatient (REF) | payer MEDICARE, SELFPAY | END 2025-08-18 12:06 | LOC: HO.LNP 12:05 | PROVIDERS: Visit Provider Internal Medicine Pulmonary Disease | DX: R05.9 Cough, unspecified (principal) | CPT/HCPCS: 87070; 87102; 87116; 87205; 87206 ==